=== PATIENT | male | born 1975 | race Caucasian/White ===

== ENCOUNTER 2016-05-11 06:44 | Day surgery (SDC) | payer BC, MEDICAID ==
[2016-05-11] MEDS ORDERED: Sodium Chloride 0.9% 10 ML Syringe FLUSH PRN (06:45)
[2016-05-11] MEDS ORDERED: Lactated Ringers 1,000 ML IV SCH (06:45)
[2016-05-11] MEDS ORDERED: Propofol 200 MG/20 ML SDV IV ONE (08:15)
[2016-05-11] MEDS ORDERED: Midazolam 1 MG/ML 2 ML SDV IV ONE (08:15)
[2016-05-11] MEDS ORDERED: Lidocaine 2% 100 MG/5 ML Syringe IVPUSH ONE (08:15)
--- NOTE | 2016-05-11 08:42 | PCM.OPNOTE ---
- General Post-Op/Procedure Note Date of Surgery/Procedure: 05/11/16 Operative Procedure(s): egd with bx Findings: esophagitis Pre Op Diagnosis: gerd Post-Op Diagnosis: Same Anesthesia Technique: MAC Primary Surgeon: Joseph Estrella Anesthesia Provider: Hiral Mario Pathology: distal esophagus Complications: None Condition: Good Free Text/Narrative:: see dictation
--- NOTE | 2016-05-11 09:28 | OR ---
DATE OF OPERATION: 05/11/2016 SURGEON: Joseph Estrella MD PROCEDURE PERFORMED: Esophagogastroduodenoscopy with cold forceps biopsy. PREOPERATIVE DIAGNOSIS: History of gastroesophageal reflux disease. POSTOPERATIVE DIAGNOSIS: Esophagitis. INDICATIONS FOR PROCEDURE: This is a 40-year-old white male, referred with a history of symptomatic gastroesophageal reflux disease. He has never had a scope. There is also question of him having an esophageal ulcer in the past. He was offered and accepted an EGD. DESCRIPTION OF OPERATION: After an excellent IV sedation was administered, the bite-block was inserted. Flexible endoscope was passed without difficulty down the patient's esophagus into the stomach. The stomach was insufflated. The scope was passed through the pylorus to the second portion of the duodenum and slowly withdrawn. The following findings were noted. Duodenum was unremarkable. Stomach was unremarkable. Distal esophagus measured at 40 cm, and there was some evidence of irritation just proximal to that. Biopsies were taken and the remainder of the esophageal exam was unremarkable. The stomach was deflated. The scope was removed. The patient tolerated the procedure well and was taken to the recovery room in good condition. /[id number] /MODL
[2016-05-11 09:45] VITALS: BP 115/68
== END 2016-05-11 09:39 | disposition home or self-care (01) ==
LOC: FB.SDS 06:44
PROVIDERS: ATTEND Surgery
DX: K21.0 Gastro-esophageal reflux disease with esophagitis (principal); G43.909 Migraine, unspecified, not intractable, without status migrainosus; Z87.891 Personal history of nicotine dependence; Z79.899 Other long term (current) drug therapy
CPT/HCPCS: 43239; 88305; J2250; J2704; J7120

== ENCOUNTER 2016-07-22 10:40 | Emergency (ER) | payer BC, MEDICAID ==
[2016-07-22] MEDS ORDERED: HYDROmorphone 2 MG/ML SDV IV ONE (10:52)
[2016-07-22] MEDS ORDERED: Ondansetron 4 MG/2 ML SDV IVPUSH ONE (10:53)
[2016-07-22] MEDS ORDERED: Sodium Chloride 0.9% 1,000 ML IV ONE (10:53)
[2016-07-22] MEDS ORDERED: HYDROmorphone 2 MG/ML SDV IVPUSH ONE (12:41)
[2016-07-22] MEDS ORDERED: Ketorolac 30 MG/ML SDV IVPUSH PRN (12:42)
[2016-07-22] MEDS ORDERED: Tamsulosin 0.4 MG Cap.ER PO ONE (12:45)
--- NOTE | 2016-07-22 13:35 | CT ---
INDICATION: Left flank - left lower quadrant pain, groin and testicle pain, question renal calculus - obstructive uropathy. It started last night, intermittent through the night with pain worsening. No known hematuria. CT ABDOMEN AND PELVIS WITHOUT CONTRAST: Spiral 1.25-mm axial sections were obtained through the abdomen and pelvis with sagittal and coronal reconstructions, utilizing renal calculus protocol, 07/22/2016. No comparison studies were available. Total Exam DLP = 1564.86 mGy-cm. Multiple tiny calculi are noted in the right kidney, scattered about the kidney. Small and tiny calculi are noted on the left, the larger calculi are seen on the left in the upper pole. Also on the left, there is obstructive uropathy with pyelocaliectasis and ureterectasis down to the ureterovesical junction where a 3.1 x 4.5-mm calculus appears to be embedded in the ureterovesical junction. No calculi are seen in the urinary bladder. Arising exophytically off the lower pole of the right kidney, there is a 2-cm mass, which has a density similar to the renal cortex and is therefore suspicious for other than benign disease. Contrast examination - IV contrast examination of the kidneys is therefore recommended. Ultrasound could also be utilized and may be helpful. There is evidence of appendectomy with clips at the cecum. No obstructive findings are seen in the bowel. No free air is noted in the intraperitoneal cavity. Prostate was not enlarged. Upper abdominal organs were otherwise unremarkable. No definite retroperitoneal mass could be identified. There are some retroperitoneal lymph nodes which are nonspecific. Renal fascial thickening is noted at the left kidney, compatible with obstructive uropathy. The lower lung elise and pleural spaces visualized were unremarkable. IMPRESSION: 1. Obstructive uropathy on the left due to a 3.1 x 4.5-mm calculus which appears to be embedded in the left ureterovesical junction. 2. Renal calcinosis. 3. Possible solid mass at the lower pole of the right kidney, approximately 2 cm in diameter. Ultrasound or preferably CT with IV contrast recommended for further evaluation, as malignancy cannot be excluded with this appearance. 4. Mild dextroconvex scoliosis of the lower lumbar spine is noted. Degenerative disk disease is noted at L4-5 with minimal retrolisthesis at L4-5. CT PELVIS: Examination of the pelvis was obtained by CT, as noted above. A calculus is noted embedded in the left ureterovesical junction compatible with obstructive uropathy to the left kidney. Report was called in part to Dr. Avalos at 1251 hours, 07/22/2016. [facility]
[2016-07-22] MEDS ORDERED: Iopamidol 755 Mg/ML 100 ML Bottle IV ONE (13:41)
[2016-07-22] MEDS ORDERED: Metoclopramide 10 MG/2 ML SDV IVPUSH ONE (14:12)
[2016-07-22 17:10] VITALS: BP 134/88
--- NOTE | 2016-07-23 09:30 | CT ---
INDICATION: Isodense mass right kidney, question malignancy. CT ABDOMEN AND PELVIS WITH CONTRAST: Spiral 2.5-mm axial sections were obtained with 93 mL Isovue-370 at 3 mL per second immediately and after a 5- minute delay, revealing a still hypodense mass, but significantly increased density mass measuring approximately 2 cm at the posterior lower pole cortex of the right kidney, mostly exophytic. It measured approximately 32.5 Hounsfield units without contrast, and immediately 63.84 Hounsfield units with contrast. After a 5 minute delay, there was a 10 Hounsfield unit decrease to 53.5 Hounsfield units within the mass. The possibility of malignancy cannot be excluded with this appearance. Areas of scarring are noted in the cortices of both kidneys, which may be on the basis of bouts of pyelonephritis. The adrenal glands, liver, and gallbladder were unremarkable. The spleen appears to be mildly enlarged, measuring 15.5 cm. The pancreas and adrenals were unremarkable. No definite evidence of pyelonephritis was seen. Retroperitoneal lymphadenopathy is minimal and nonspecific. The appendix is not visualized, compatible with history of its removal. The prostate was not enlarged. A calculus is embedded in the ureteropelvic junction on the left, compatible with obstructive uropathy suggested on the earlier noncontrast study. Pyelocaliectasis and ureterectasis are noted on the left. No retroperitoneal masses were identified. What appears to be a postsurgical appendiceal stump is noted. IMPRESSION: 1. 2-cm suspicious mass lower pole left kidney. Additional workup recommended , possibly initial ultrasound or MRI. 2. Renal cortical scarring and renal calculi, as noted previously. 3. Post appendectomy stump. 4. Obstructive uropathy due to a calculus at the left ureterovesical junction, as mentioned previously. CT PELVIS: Examination of the pelvis was obtained by CT, as noted above, and revealed a calculus at the ureteropelvic junction on the left, compatible with obstructive uropathy, with ureterectasis noted. No evidence of bowel obstruction was seen. Total Exam DLP = 3132.79 mGy-cm. Report was given by phone to Dr. Avalos this p.m., 07/22/2016. FABIANO
--- NOTE | 2016-07-23 16:18 | ER ---
DATE SEEN: 07/22/2016 TIME SEEN: 1045 hours. CHIEF COMPLAINT: Left flank pain, left lower abdominal discomfort and testicular pain. 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 No previous history of kidney stones. He felt he was dehydrated, even though he drank at least 2-3 liters of "pop" yesterday. He experienced nausea at 0900 hours this morning without vomiting. No diarrhea, constipation, blood in the stool, black or tarry stool. No frequency, urgency, dysuria, or hematuria. 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 REVIEW OF SYSTEMS: HEENT: Denies headache presently, although he has headaches. No compromised vision. NECK: No neck stiffness. LUNGS: Without recent cough for shortness of breath. He is not a smoker. CARDIORESPIRATORY: Denies chest pain, or shortness of breath. ABDOMEN: As noted above. No hematochezia. No history of polyps. No colonoscopy. : Negative. No difficulty passing urine, frequency, urgency, or dysuria. MUSCULOSKELETAL: Denies arthralgias, but he has had previous back surgery and has low back discomfort. FAMILY HISTORY: Father has chronic kidney disease either Stage 3 or 4. He has been at the verge of dialysis on several occasions. His father's uncle had kidney failure in his 70s or 80s and also his great grandfather has the same. Kidney disease runs in the family. SOCIAL HISTORY: and nonsmoker. Drinks alcohol rarely and does not use snuff. PHYSICAL EXAMINATION: VITAL SIGNS: Blood pressure 129/85, heart rate regular at 69, respirations 18, oxygen saturation 97% on room air, temperature 36.8 degrees centigrade. GENERAL: The patient is in marked discomfort. HEENT: PERRLA intact. Pharynx without abnormality. NECK: Without stiffness, tenderness, or discomfort. No cervical adenopathy. No thyromegaly. LUNGS: Clear to auscultation without rales, rhonchi, or wheezes. HEART: S1, S2. No irregular rate and rhythm. No tachycardia. ABDOMEN: Soft. Mild left inguinal discomfort. Groin discomfort. Marked left CVA percussion tenderness. Abdomen has no guarding, no rebound. Testicles are nontender and normal size. EXTREMITIES: Without abnormality. No edema. Joints without pain or discomfort. Decreased range of motion. Muscle strength is good in upper and lower extremities. Normal deep tendon reflexes in upper and lower extremities. NEUROLOGIC: Cranial nerves 2 through 12 intact. Alert and oriented x3. Good muscle strength. The patient is mesomorphic. PSYCH: Very pleasant and cooperative. DIAGNOSTIC STUDIES: CAT scan reveals a 3.1 x 4.5 calculus at the left ureterovesical junction, also has a 2 cm mass in the right renal cortex suspicious for malignancy. Because of this, intravenous contrast Ct performed and confirmed a solid mass of highly probabl;e of neoplastic etiology. This will require further evaluation and/or biopsy. MRI with contrast planned for Tuesday at 0930 hours 07/27/2016. The patient has dextroscoliosis over spine with degenerative disk disease and retrolisthesis for L4-5. Laboratory: Urinalysis; moderate mucus, few squamous cells, and 0-5 rbc's, 5-10 wbc's. DIAGNOSES: 1. Left ureterovesical stone. 2. Mass in right kidney, rule out neoplasm. 3. Hypertension. 4. Migraine history. PLAN: Flomax 0.4 mg in the ED. A total of 3 mg of Dilaudid given IV because of recurrent persistent pain. Zofran 4 mg IV did not resolve the nausea. Reglan 10 mg IV was used and he felt better. Flomax 0.4 mg orally. The patient dismissed with Percocet 2-4 hours p.r.n. severe pain. Flomax. Follow up with MRI on Tuesday. Follow up with doctor after this is completed. I will speak to him because I will be working in the emergency room that day. /[id number] STORM/JODEEL RENED
== END 2016-07-22 17:26 | disposition home or self-care (01) ==
LOC: FB.ED 10:40
DX: N20.2 Calculus of kidney with calculus of ureter (principal); I10 Essential (primary) hypertension; G43.909 Migraine, unspecified, not intractable, without status migrainosus; K21.9 Gastro-esophageal reflux disease without esophagitis
CPT/HCPCS: 74178; 81001; 96361; 96374; 96375; 96376; 99285; A9270; J1170; J1885; J2405; J2765; J7040; Q9967; 74176; 74177

== ENCOUNTER 2017-07-29 19:44 | Emergency (ER) | payer BC, MEDICAID ==
[2017-07-29] MEDS ORDERED: Sodium Chloride 0.9% 10 ML Syringe FLUSH PRN (20:17)
[2017-07-29] MEDS ORDERED: HYDROmorphone 2 MG/ML SDV IVPUSH ONE (20:18)
--- NOTE | 2017-07-29 20:20 | EDM.PDOC ---
ED HPI GENERAL MEDICAL PROBLEM - General Chief Complaint: Abdominal Pain Stated Complaint: ABD PAIN Time Seen by Provider: 07/29/17 20:10 Source of Information: Reports: Patient, Old Records History Limitations: Reports: No Limitations - History of Present Illness INITIAL COMMENTS - FREE TEXT/NARRATIVE: Colten comes into [facility] ED with acute onset of R CVA back pain. Pain is colicky in nature, nonradiating, and associated with some nausea. There is no voiding sxs, fever, chills or sweats. Of interest is a PMH of R ureterlithiasis, nephrolithiasis, and renal cell CA last year. He had a partial R nephrectomy. He has taken no meds. - Related Data Allergies Allergy/AdvReac Type Severity Reaction Status Date / Time No Known Allergies Allergy Verified 07/29/17 20:40 Home Meds: Home Meds Propranolol [Inderal LA] 120 mg PO DAILY 05/10/16 [History] Rizatriptan [Maxalt [employer]IN[employer]] 10 mg PO Q2H PRN MDD 20 MG 05/10/16 [History] Lisinopril/Hydrochlorothiazide [Lisinopril-Hctz 10-12.5 mg Tab] 1 tab PO BEDTIME 07/22/16 [History] Ranitidine [Zantac] 1 tab PO BEDTIME 07/22/16 [History] Past Medical History Cardiovascular History: Reports: Hypertension Respiratory History: Reports: Other (See Below) Other Respiratory History: BROCNCHITIS Gastrointestinal History: Reports: GERD Genitourinary History: Reports: Renal Calculus Musculoskeletal History: Reports: Back Pain, Chronic, Fracture Oncologic (Cancer) History: Reports: Renal - Infectious Disease History Infectious Disease History: Reports: Chicken Pox, Shingles - Past Surgical History HEENT Surgical History: Reports: Tonsillectomy GI Surgical History: Reports: Appendectomy Musculoskeletal Surgical History: Reports: Shoulder Surgery, Other (See Below) Social & Family History - Family History Family Medical History: Noncontributory - Caffeine Use Caffeine Use: Reports: Soda ED ROS GENERAL - Review of Systems Review Of Systems: See Below Constitutional: Reports: Malaise, Decreased Appetite HEENT: Reports: No Symptoms Respiratory: Reports: No Symptoms Cardiovascular: Reports: No Symptoms Endocrine: Reports: No Symptoms GI/Abdominal: Reports: Nausea, Vomiting : Reports: Flank Pain (Right) Musculoskeletal: Reports: No Symptoms Skin: Reports: No Symptoms Neurological: Reports: No Symptoms Psychiatric: Reports: No Symptoms Hematologic/Lymphatic: Reports: No Symptoms Immunologic: Reports: No Symptoms ED EXAM, RENAL/ - Physical Exam Exam: See Below Exam Limited By: No Limitations General Appearance: Alert, WD/WN, Anxious, Moderate Distress Head: Normocephalic Neck: Normal Inspection, Supple Respiratory/Chest: Lungs Clear, Normal Breath Sounds, Chest Non-Tender Cardiovascular: Normal Peripheral Pulses, Regular Rate, Rhythm, No Murmur GI/Abdominal: Normal Bowel Sounds, Soft, Non-Tender, No Organomegaly, No Distention, No Mass (Male) Exam: No Hernia, Normal Inspection Rectal (Males) Exam: Deferred Back Exam: Normal Inspection, CVA Tenderness (R) Extremities: Normal Inspection, Normal Range of Motion Neurological: Alert, Oriented, CN II-XII Intact, Normal Cognition, Normal Gait, No Motor/Sensory Deficits Psychiatric: Normal Affect, Normal Mood Skin Exam: Warm, Dry, Intact, Normal Color Lymphatic: No Adenopathy Course - Vital Signs Text/Narrative:: Following assessment at the [facility] ED, I inserted an IV in the LUE, and administered NS 1L, Dilaudid 2 mg IV, and Zofran 8 mg IV. Pain is currently rated as a 4/10, and nausea subsided with the Zofran. CT ABD-Pelvis noted some gastric distention with A/F level, some liquid stool in the large bowel, but no AF levels of the small or large bowel; appendix surgically absent; GB normal appearance. A gastroenteritis is suspected at this time. Last Recorded V/S: Last Vital Signs Temp 37.1 C 07/29/17 20:00 Pulse 86 07/29/17 23:23 Resp 16 07/29/17 23:23 BP 143/95 H 07/29/17 23:23 Pulse Ox 97 07/29/17 23:23 - Orders/Labs/Meds Orders: Active Orders 24 hr Category Date Time Status Abdomen Pelvis wo Cont [CT] Stat Exams 07/29/17 22:22 Taken UA W/MICROSCOPIC [URIN] Stat Lab 07/29/17 21:50 Ordered Sodium Chloride 0.9% [Normal Saline] 1,000 ml Med 07/29/17 20:45 Active IV ASDIRECTED Sodium Chloride 0.9% [Normal Saline] 1,000 ml Med 07/29/17 21:50 Active IV ASDIRECTED Sodium Chloride 0.9% [Saline Flush] Med 07/29/17 20:17 Active 10 ml FLUSH ASDIRECTED PRN Peripheral IV Insertion Adult [OM.PC] Routine Oth 07/29/17 20:17 Ordered Medication Orders Sodium Chloride (Normal Saline) 1,000 mls @ 999 mls/hr IV ASDIRECTED NIRU Last Admin: 07/29/17 20:48 Dose: 999 mls/hr Sodium Chloride (Normal Saline) 1,000 mls @ 999 mls/hr IV ASDIRECTED NIRU Sodium Chloride (Saline Flush) 10 ml FLUSH ASDIRECTED PRN PRN Reason: Keep Vein Open Labs: Laboratory Tests 07/29/17 07/29/17 07/29/17 Range/Units 20:30 20:30 21:50 WBC 13.3 H (4.5-12.0) X10-3/uL RBC 5.56 (4.30-5.75) x10(6)uL Hgb 15.8 H (11.5-15.5) g/dL Hct 45.8 (30.0-51.3) % MCV 82.4 (80-96) fL MCH 28.4 (27.7-33.6) pg MCHC 34.5 (32.2-35.4) g/dL RDW 14.4 (11.5-15.5) % Plt Count 199 (125-369) X10(3)uL MPV 9.1 (7.4-10.4) fL Neut % (Auto) 77.7 (46-82) % Lymph % (Auto) 11.0 L (13-37) % Culberson % (Auto) 6.1 (4-12) % Eos % (Auto) 1 (1.0-5.0) % Baso % (Auto) 4 H (0-2) % Neut # (Auto) 10.3 H (1.6-8.3) # Lymph # (Auto) 1.5 (0.6-5.0) # Culberson # (Auto) 0.8 (0.0-1.3) # Eos # (Auto) 0.1 (0.0-0.8) # Baso # (Auto) 0.6 H (0.0-0.2) # Sodium 142 (135-145) mmol/L Potassium 3.4 L (3.5-5.3) mmol/L Chloride 106 (100-110) mmol/L Carbon Dioxide 24 (21-32) mmol/L BUN 12 (7-18) mg/dL Creatinine 1.6 H (0.70-1.30) mg/dL Est Cr Clr Drug Dosing TNP Estimated GFR (MDRD) 47 L (>60) BUN/Creatinine Ratio 7.5 L (9-20) Glucose 99 (80-116) mg/dL Calcium 9.2 (8.6-10.2) mg/dL Urine Color Yellow (YELLOW) Urine Appearance Clear (CLEAR) Urine pH 5.0 (5.0-6.5) Ur Specific Adams 1.020 (1.010-1.025) Urine Protein Negative (NEGATIVE) mg/dL Urine Glucose (UA) Normal (NEGATIVE) mg/dL Urine Ketones Negative (NEGATIVE) mg/dL Urine Occult Blood Negative (NEGATIVE) Urine Nitrite Negative (NEGATIVE) Urine Bilirubin Negative (NEGATIVE) Urine Urobilinogen Normal (NEGATIVE) mg/dL Ur Leukocyte Esterase Negative (NEGATIVE) Urine RBC 0-5 (0) Urine WBC 0-5 (0) Ur Squamous Epith Cells Occasional (NS,R,O) Urine Bacteria Rare H (NS) Meds: Medications Generic Name Dose Route Start Last Admin Trade Name Freq PRN Reason Stop Dose Admin Sodium Chloride 1,000 mls @ 999 mls/hr 07/29/17 20:45 07/29/17 20:48 Normal Saline IV 999 mls/hr ASDIRECTED NIRU Administration Sodium Chloride 1,000 mls @ 999 mls/hr 07/29/17 21:50 Normal Saline IV ASDIRECTED NIRU Sodium Chloride 10 ml 07/29/17 20:17 Saline Flush FLUSH ASDIRECTED PRN Keep Vein Open Discontinued Medications Generic Name Dose Route Start Last Admin Trade Name Freq PRN Reason Stop Dose Admin Hydromorphone HCl 2 mg 07/29/17 20:18 07/29/17 20:29 Dilaudid IVPUSH 07/29/17 20:19 2 mg ONETIME ONE Administration Ondansetron HCl 8 mg 07/29/17 20:38 07/29/17 20:41 Zofran IVPUSH 07/29/17 20:39 8 mg ONETIME ONE Administration Departure - Departure Time of Disposition: 23:42 Disposition: Home, Self-Care 01 Condition: Fair Clinical Impression: Gastroenteritis - Discharge Information Referrals: Srinivas Garzon MD [Primary Care Provider] - Forms: ED Department Discharge - Problem List & Annotations (1) Gastroenteritis SNOMED Code(s): 52713590 Code(s): K52.9 - NONINFECTIVE GASTROENTERITIS AND COLITIS, UNSPECIFIED Status: Acute Current Visit: Yes Annotation/Comment:: I suggested Benedryl for any itching, Tylenol or Ibuprofen for pain, and fluids as tolerated. He will monitor temps, and follow up in ED if sxs relapse or escalate. - Problem List Review Problem List Initiated/Reviewed/Updated: Yes - My Orders Last 24 Hours: My Active Orders 07/29/17 20:17 Sodium Chloride 0.9% [Saline Flush] 10 ml FLUSH ASDIRECTED PRN Peripheral IV Insertion Adult [OM.PC] Routine 07/29/17 20:45 Sodium Chloride 0.9% [Normal Saline] 1,000 ml IV ASDIRECTED 07/29/17 21:50 UA W/MICROSCOPIC [URIN] Stat Sodium Chloride 0.9% [Normal Saline] 1,000 ml IV ASDIRECTED 07/29/17 22:22 Abdomen Pelvis wo Cont [CT] Stat - Assessment/Plan Last 24 Hours: My Active Orders 07/29/17 20:17 Sodium Chloride 0.9% [Saline Flush] 10 ml FLUSH ASDIRECTED PRN Peripheral IV Insertion Adult [OM.PC] Routine 07/29/17 20:45 Sodium Chloride 0.9% [Normal Saline] 1,000 ml IV ASDIRECTED 07/29/17 21:50 UA W/MICROSCOPIC [URIN] Stat Sodium Chloride 0.9% [Normal Saline] 1,000 ml IV ASDIRECTED 07/29/17 22:22 Abdomen Pelvis wo Cont [CT] Stat Plan: Follow up in ED if sxs persist or escalate.
[2017-07-29] MEDS ORDERED: Ondansetron 4 MG/2 ML SDV IVPUSH ONE (20:38)
[2017-07-29] MEDS ORDERED: Sodium Chloride 0.9% 1,000 ML IV SCH ×2 (20:45→21:50)
[2017-07-29 23:27] VITALS: BP 143/95
== END 2017-07-29 23:53 | disposition home or self-care (01) ==
LOC: FB.ED 19:44
DX: K52.9 Noninfective gastroenteritis and colitis, unspecified (principal); K21.9 Gastro-esophageal reflux disease without esophagitis; Z79.899 Other long term (current) drug therapy
CPT/HCPCS: 36415; 51701; 74176; 80048; 81001; 85025; 96361; 96374; 96375; 99284; J1170; J2405; J7030; J7050

== ENCOUNTER 2017-09-02 19:20 | Emergency (ER) | payer BC, MEDICAID ==
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
[2017-09-02] MEDS ORDERED: HYDROmorphone 2 MG/ML SDV IM ONE (20:15)
[2017-09-02] MEDS ORDERED: Acetaminophen/oxyCODONE 325-5 MG Tab PO ONE (20:58)
[2017-09-02 21:05] VITALS: BP 150/103
--- NOTE | 2017-09-05 12:48 | CR ---
INDICATION: Trauma. RIGHT HUMERUS: Five views of the right humerus were obtained and reveal the ankle and shoulder joints to appear intact. The humerus appeared intact. There is evidence of previous rotator cuff surgery. Multiple anchors are noted in place at the glenoid. IMPRESSION: No acute fracture or dislocation. MTDD
== END 2017-09-02 21:20 | disposition home or self-care (01) ==
LOC: FB.ED 19:20
DX: S40.021A Contusion of right upper arm, initial encounter (principal); I10 Essential (primary) hypertension; K21.9 Gastro-esophageal reflux disease without esophagitis; Z87.442 Personal history of urinary calculi; Z90.49 Acquired absence of other specified parts of digestive tract; Z79.899 Other long term (current) drug therapy; V03.90XA Pedestrian on foot injured in collision with car, pick-up truck or van, unspecified whether traffic or nontraffic accident, initial encounter
CPT/HCPCS: 70450; 71250; 72125; 73060; 74176; 80053; 85025; 85610; 96372; 99284; A9270; J1170

== ENCOUNTER 2018-04-05 07:41 | Emergency (ER) | payer BC, MEDICAID ==
--- NOTE | 2018-04-05 08:01 | EDM.PDOC ---
ED HPI GENERAL MEDICAL PROBLEM - General Stated Complaint: KIDNEY STONE Time Seen by Provider: 04/05/18 07:50 Source of Information: Reports: Patient, Family History Limitations: Reports: No Limitations - History of Present Illness INITIAL COMMENTS - FREE TEXT/NARRATIVE: 42 y.o.w.m with a H/O HTN and kidney stones, came with his SO to the ed due to sudden onset of left sided flank pain. Pt did find a position which made him comfortable. No trauma. Last Kidney stone was calcium. Pt felt nauseated as well. No vomiting or diarrhea. No SOB or any other acute medical issues. BP 187/ 100 Pulse 88 RR 18 Pulse ox 100% on RA. Temp 36.8 Onset Date: 04/05/18 Onset Time: 05:00 Duration: Hour(s):, Intermittent, Waxing/Waning Location: Reports: Back (left flank) Quality: Reports: Burning, Dull, Throbbing Severity: Moderate Improves with: Reports: Medication Worsens with: Reports: Other Context: Reports: Other (H/O kidney stones) Associated Symptoms: Reports: No Other Symptoms Left Lower Abdomen Pain Score (Numeric/FACES): 10 - Related Data Allergies Allergy/AdvReac Type Severity Reaction Status Date / Time No Known Allergies Allergy Verified 04/05/18 09:55 Home Meds: Home Meds Rizatriptan [Maxalt GAS COMBUSTION ENGINEER] 10 mg PO Q2H PRN MDD 20 MG 05/10/16 [History] Ranitidine [Zantac] 1 tab PO BEDTIME 07/22/16 [History] Acetaminophen/oxyCODONE [Percocet 325-5 MG] 1 each PO Q6HR PRN #20 tab 04/05/18 [Rx] Escitalopram Oxalate 20 mg PO DAILY 04/05/18 [History] Ibuprofen [Motrin] 600 mg PO Q6H PRN #30 tab 04/05/18 [Rx] Ondansetron [Zofran ODT] 4 mg PO Q8H PRN #12 tab.dis 04/05/18 [Rx] Tamsulosin [Tamsulosin 24 Hr] 0.4 mg PO DAILY #4 cap.er 04/05/18 [Rx] Topiramate 100 mg PO DAILY 04/05/18 [History] amLODIPine Besylate [Amlodipine Besylate] 10 mg PO DAILY 04/05/18 [History] Past Medical History Cardiovascular History: Reports: Hypertension Respiratory History: Reports: Other (See Below) Other Respiratory History: BROCNCHITIS Gastrointestinal History: Reports: GERD Genitourinary History: Reports: Renal Calculus, Other (See Below) (CKD) Musculoskeletal History: Reports: Back Pain, Chronic, Fracture Oncologic (Cancer) History: Reports: Renal - Infectious Disease History Infectious Disease History: Reports: Chicken Pox, Shingles - Past Surgical History HEENT Surgical History: Reports: Tonsillectomy GI Surgical History: Reports: Appendectomy, Hernia, Abdominal (incisional, approx 4 months ago) Female Surgical History: Reports: Nephrectomy (partial) Musculoskeletal Surgical History: Reports: Shoulder Surgery, Other (See Below) Social & Family History - Family History Family Medical History: Noncontributory - Caffeine Use Caffeine Use: Reports: Soda Other Caffeine Use: mountain dew. ED ROS GENERAL - Review of Systems Review Of Systems: See Below Constitutional: Reports: No Symptoms HEENT: Reports: No Symptoms Respiratory: Reports: No Symptoms Cardiovascular: Reports: No Symptoms Endocrine: Reports: No Symptoms GI/Abdominal: Reports: No Symptoms : Reports: Hematuria, Pain (left flank pain) Musculoskeletal: Reports: No Symptoms Skin: Reports: No Symptoms Neurological: Reports: No Symptoms Psychiatric: Reports: No Symptoms Hematologic/Lymphatic: Reports: No Symptoms Immunologic: Reports: No Symptoms ED EXAM, RENAL/ - Physical Exam Exam: See Below Exam Limited By: No Limitations General Appearance: Alert, WD/WN, Mild Distress, Moderate Distress Eye Exam: Bilateral Eye: Normal Inspection Ears: Normal External Exam Nose: Normal Inspection Throat/Mouth: Normal Inspection Head: Atraumatic, Normocephalic Neck: Normal Inspection Respiratory/Chest: No Respiratory Distress, Lungs Clear, Normal Breath Sounds Cardiovascular: Normal Peripheral Pulses, Regular Rate, Rhythm, No Edema, No Gallop GI/Abdominal: Normal Bowel Sounds, Soft, Non-Tender, No Organomegaly, No Abnormal Bruit, No Mass, Pelvis Stable (Male) Exam: Deferred Rectal (Males) Exam: Deferred Back Exam: Normal Inspection, CVA Tenderness (L) Extremities: Normal Inspection, Normal Range of Motion, Non-Tender, No Pedal Edema Neurological: Alert, Oriented, CN II-XII Intact, Normal Cognition, Normal Gait, No Motor/Sensory Deficits Psychiatric: Normal Affect, Normal Mood Skin Exam: Warm, Dry, Intact, Normal Color, No Rash Lymphatic: No Adenopathy Course - Vital Signs Text/Narrative:: 42 y.o.w.m with a H/O HTN and kidney stones, came with his SO to the ed due to sudden onset of left sided flank pain. Pt did find a position which made him comfortable. No trauma. Last Kidney stone was calcium. Pt felt nauseated as well. No vomiting or diarrhea. No SOB or any other acute medical issues. BP 187/ 100 Pulse 88 RR 18 Pulse ox 100% on RA. Temp 36.8 PE: WNWD W M with left flank pain radiating in his left groin. Labs: UA pos for annie hematuria, CBC, BMP neg except CR was 1.4 GFR was 55 Imaging: Left jawbone puller urolithiasis witha 3.5 mm stone in his left UVJ, mild hydro. Impression: 3.5 mm urolithiasis left UVJ with mild hydro Tx: Toradol, Flomax, Zofran, Dilaudid Reexam: Pt was 100% pain free and stable on D/C Plan: D/C with instruction Last Recorded V/S: Last Vital Signs Temp 36.8 C 04/05/18 07:50 Pulse 88 04/05/18 09:45 Resp 18 04/05/18 09:45 BP 156/92 H 04/05/18 09:45 Pulse Ox 100 04/05/18 09:45 - Orders/Labs/Meds Orders: Active Orders 24 hr Category Date Time Status Abdomen Pelvis wo Cont [CT] Stat Exams 04/05/18 08:00 Taken Labs: Laboratory Tests 04/05/18 04/05/18 04/05/18 Range/Units 07:50 09:25 09:25 WBC 8.4 (4.5-12.0) X10-3/uL RBC 5.41 (4.30-5.75) x10(6)uL Hgb 15.4 (11.5-15.5) g/dL Hct 44.8 (30.0-51.3) % MCV 82.9 (80-96) fL MCH 28.4 (27.7-33.6) pg MCHC 34.3 (32.2-35.4) g/dL RDW 13.5 (11.5-15.5) % Plt Count 206 (125-369) X10(3)uL MPV 8.2 (7.4-10.4) fL Neut % (Auto) 79.1 (46-82) % Lymph % (Auto) 13.1 (13-37) % [place] % (Auto) 5.9 (4-12) % Eos % (Auto) 1 (1.0-5.0) % Baso % (Auto) 1 (0-2) % Neut # (Auto) 6.7 (1.6-8.3) # Lymph # (Auto) 1.1 (0.6-5.0) # [place] # (Auto) 0.5 (0.0-1.3) # Eos # (Auto) 0.1 (0.0-0.8) # Baso # (Auto) 0.0 (0.0-0.2) # Sodium 140 (135-145) mmol/L Potassium 3.9 (3.5-5.3) mmol/L Chloride 106 (100-110) mmol/L Carbon Dioxide 24 (21-32) mmol/L BUN 14 (7-18) mg/dL Creatinine 1.4 H (0.70-1.30) mg/dL Est Cr Clr Drug Dosing 73.90 mL/min Estimated GFR (MDRD) 55 L (>60) BUN/Creatinine Ratio 10.0 (9-20) Glucose 111 (80-116) mg/dL Calcium 9.2 (8.6-10.2) mg/dL Urine Color Yellow (YELLOW) Urine Appearance Slightly cloudy (CLEAR) Urine pH 5.0 (5.0-6.5) Ur Specific [place] 1.015 (1.010-1.025) Urine Protein Negative (NEGATIVE) mg/dL Urine Glucose (UA) Normal (NEGATIVE) mg/dL Urine Ketones Negative (NEGATIVE) mg/dL Urine Occult Blood Large H (NEGATIVE) Urine Nitrite Negative (NEGATIVE) Urine Bilirubin Negative (NEGATIVE) Urine Urobilinogen Normal (NEGATIVE) mg/dL Ur Leukocyte Esterase Negative (NEGATIVE) Urine RBC >100 H (0) Urine WBC 0-5 (0) Ur Squamous Epith Cells Occasional (NS,R,O) Urine Bacteria Rare H (NS) Meds: Medications Discontinued Medications Generic Name Dose Route Start Last Admin Trade Name Freq PRN Reason Stop Dose Admin Hydromorphone HCl 1 mg 04/05/18 08:38 04/05/18 09:12 Dilaudid IV 04/05/18 08:39 1 mg ONETIME STA Administration Ketorolac Tromethamine 60 mg 04/05/18 07:58 04/05/18 08:07 Toradol IM 04/05/18 07:59 60 mg ONETIME ONE Administration Ondansetron HCl 8 mg 04/05/18 08:00 04/05/18 08:07 Zofran Odt PO 04/05/18 08:01 8 mg ONETIME ONE Administration Tamsulosin HCl 0.4 mg 04/05/18 07:58 04/05/18 08:07 Flomax PO 04/05/18 07:59 0.4 mg ONETIME ONE Administration Departure - Departure Time of Disposition: 09:50 Disposition: Home, Self-Care 01 Condition: Good Clinical Impression: Calcium urolithiasis, Hematuria - Discharge Information Prescriptions: Acetaminophen/oxyCODONE [Percocet 325-5 MG] 1 each PO Q6HR PRN #20 tab PRN Reason: severe pain only Ibuprofen [Motrin] 600 mg PO Q6H PRN #30 tab PRN Reason: moderate pain Ondansetron [Zofran ODT] 4 mg PO Q8H PRN #12 tab.dis PRN Reason: for nausea Tamsulosin [Tamsulosin 24 Hr] 0.4 mg PO DAILY #4 cap.er Instructions: Kidney Stones, [id number] Referrals: Srinivas Garzon MD [Primary Care Provider] - Forms: ED Department Discharge, ED Return to Work/School Form Additional Instructions: Please increase water intake, please take Percocet for severe pain. Motrin for moderate pain, Zofran for nausea, Flomax for Ureter spasm. Please f/u with your PMD, come back if your symptoms get worse acutely - My Orders Last 24 Hours: My Active Orders 04/05/18 08:00 Abdomen Pelvis wo Cont [CT] Stat - Assessment/Plan Last 24 Hours: My Active Orders 04/05/18 08:00 Abdomen Pelvis wo Cont [CT] Stat
[2018-04-05] MEDS: Ondansetron 8 MG Tab.DIS PO ONE (08:07)
[2018-04-05] MEDS: Ketorolac 60 MG/2 ML SDV IM ONE (08:07)
[2018-04-05] MEDS: Tamsulosin 0.4 MG Cap.ER PO ONE (08:07)
[2018-04-05] MEDS: HYDROmorphone 2 MG/ML SDV IV STA (09:12)
[2018-04-05 10:00] VITALS: BP 156/92
== END 2018-04-05 10:13 | disposition home or self-care (01) ==
LOC: FB.ED 07:41
DX: N13.2 Hydronephrosis with renal and ureteral calculous obstruction (principal); I10 Essential (primary) hypertension; Z79.899 Other long term (current) drug therapy
CPT/HCPCS: 36415; 74176; 80048; 81001; 85025; 96372; 96374; 99284; A9270-GY; J1170; J1885

== ENCOUNTER 2018-07-08 12:54 | Emergency (ER) | payer BC, MEDICAID ==
[2018-07-08 13:10] VITALS: BP 153/97
--- NOTE | 2018-07-08 13:27 | EDM.PDOC ---
ED HPI GENERAL MEDICAL PROBLEM - General Chief Complaint: Eye Problems Stated Complaint: RT EYE PAIN Time Seen by Provider: 07/08/18 12:54 Source of Information: Reports: Patient History Limitations: Reports: No Limitations - History of Present Illness INITIAL COMMENTS - FREE TEXT/NARRATIVE: 42 y.o.w.m wearing contact lenses. He did not take his contact lenses out for a few days and noticed pain and blurred vision at his right eye this am.No direct trauma. Visual acuity was 20/50 at his righ eye, uncorrected. left eye 20/20. No other acute med issues. BP 153/92 RR 18 Pulse ox 97% on RA Temp 36.7 Pulse 93 Procedure: Please see above. No FB could be identified Impression: minimal corneal abrasion/conjunctivitis right eye. Tx: Pain meds and Eye abx ointment was prescribed, Email sent to pharmacy Reexam: Pt was stable in the ED Plan: D/C with instructions Onset Date: 07/07/18 Onset Time: 09:00 Duration: Hour(s):, Getting Worse, Intermittent Location: Reports: Face (right eye) Quality: Reports: Burning, Dull Severity: Moderate Improves with: Reports: Rest Worsens with: Reports: Movement Context: Reports: Other (did not take out his contact lenses) Associated Symptoms: Reports: No Other Symptoms R eye Pain Score (Numeric/FACES): 8 - Related Data Allergies Allergy/AdvReac Type Severity Reaction Status Date / Time No Known Allergies Allergy Verified 07/08/18 13:04 Home Meds: Home Meds Rizatriptan [Maxalt HEALTHCARE ARCHITECT] 10 mg PO Q2H PRN MDD 20 MG 05/10/16 [History] Ranitidine [Zantac] 150 mg PO BID 07/22/16 [History] Escitalopram Oxalate 20 mg PO BEDTIME 04/05/18 [History] Ibuprofen [Motrin] 600 mg PO Q6H PRN #30 tab 04/05/18 [Rx] Topiramate 100 mg PO BEDTIME 04/05/18 [History] amLODIPine Besylate [Amlodipine Besylate] 10 mg PO BEDTIME 04/05/18 [History] Acetaminophen/HYDROcodone [[place] 325-5 MG] 1 - 2 tab PO Q6H PRN #6 tab 07/08/18 [Rx] Bacitracin/HC/Neomycin/Polymyx [Cortisporin Ophth Oint] 1 applic OP Q6H #1 tube 07/08/18 [Rx] Past Medical History Cardiovascular History: Reports: Hypertension Respiratory History: Reports: Other (See Below) Other Respiratory History: BROCNCHITIS Gastrointestinal History: Reports: GERD Genitourinary History: Reports: Renal Calculus, Other (See Below) (CKD) Musculoskeletal History: Reports: Back Pain, Chronic, Fracture Oncologic (Cancer) History: Reports: Renal - Infectious Disease History Infectious Disease History: Reports: Chicken Pox, Shingles - Past Surgical History HEENT Surgical History: Reports: Tonsillectomy GI Surgical History: Reports: Appendectomy, Hernia, Abdominal (incisional, approx 4 months ago) Female Surgical History: Reports: Nephrectomy (partial) Musculoskeletal Surgical History: Reports: Shoulder Surgery, Other (See Below) Social & Family History - Family History Family Medical History: Noncontributory - Caffeine Use Caffeine Use: Reports: Soda Other Caffeine Use: mountain dew. ED ROS GENERAL - Review of Systems Review Of Systems: See Below Constitutional: Reports: No Symptoms HEENT: Reports: Eye Pain (right eye) Respiratory: Reports: No Symptoms Cardiovascular: Reports: No Symptoms Endocrine: Reports: No Symptoms GI/Abdominal: Reports: No Symptoms : Reports: No Symptoms Musculoskeletal: Reports: No Symptoms Skin: Reports: No Symptoms Neurological: Reports: No Symptoms Psychiatric: Reports: No Symptoms Hematologic/Lymphatic: Reports: No Symptoms Immunologic: Reports: No Symptoms ED EXAM GENERAL W FULL EYE - Physical Exam Exam: See Below Exam Limited By: No Limitations General Appearance: Alert, WD/WN, Mild Distress Eye Exam: Right Eye: Conjunctival Injection Visual Acuity (R) 20/: 50 Visual Acuity (L) 20/: 20 With Correction: No Eyelids: Bilateral: Normal Appearance Conjunctiva & Sclera: Right: Injected Cornea Exam: Right: Corneal Abrasion (possible, no slit lamp available) Extraocular Movements: Bilateral: Intact Pupils: Normal Accommodation Pupillary Size: Bilateral: 4 mm Pupillary Reaction: Bilateral: Brisk Anterior Chamber: Bilateral: Normal Appearance Posterior Chamber: Bilateral: Normal Funduscopic Ears: Normal External Exam Nose: Normal Inspection Throat/Mouth: Normal Inspection Head: Atraumatic, Normocephalic Neck: Normal Inspection, Supple, Non-Tender, Full Range of Motion Respiratory/Chest: No Respiratory Distress, Lungs Clear, Normal Breath Sounds, No Accessory Muscle Use, Chest Non-Tender Cardiovascular: Normal Peripheral Pulses, Regular Rate, Rhythm GI/Abdominal: Normal Bowel Sounds, Soft (Male) Exam: Deferred (Female) Exam: Deferred Rectal (Males) Exam: Deferred Rectal (Female) Exam: Deferred Back Exam: Normal Inspection, Full Range of Motion Extremities: Normal Inspection, Normal Range of Motion, Non-Tender, Normal Capillary Refill Neurological: Alert, Oriented, CN II-XII Intact, Normal Cognition, Normal Gait Psychiatric: Normal Affect, Normal Mood Skin Exam: Warm, Dry, Intact, Normal Color, No Rash Lymphatic: No Adenopathy ED EYE w/ Add Procedure - Eye Procedure Alcaine Drops Administered: Yes (3 drops applied) Progress: Fluoro strip was applied. with the "blue light" a minimal abrasion could be seen qt his right eye, no slit lamp was available, Conjunctivitis right eye. Course - Vital Signs Text/Narrative:: 42 y.o.w.m wearing contact lenses. He did not take his contact lenses out for a few days and noticed pain and blurred vision at his right eye this am.No direct trauma. Visual acuity was 20/50 at his righ eye, uncorrected. left eye 20/20. No other acute med issues. BP 153/92 RR 18 Pulse ox 97% on RA Temp 36.7 Pulse 93 PE: WNWD W M with right eye discomfort Conuctivitis Last Recorded V/S: Last Vital Signs Temp 36.6 C 07/08/18 12:57 Pulse 90 07/08/18 12:57 Resp 18 07/08/18 12:57 BP 153/97 H 07/08/18 12:57 Pulse Ox 97 07/08/18 12:57 Departure - Departure Time of Disposition: 13:24 Disposition: Home, Self-Care 01 Condition: Good Clinical Impression: Conjunctivitis Qualifiers: Acute conjunctivitis type: unspecified Laterality: right - Discharge Information Prescriptions: Acetaminophen/HYDROcodone [[place] 325-5 MG] 1 - 2 tab PO Q6H PRN #6 tab PRN Reason: for severe pain only Bacitracin/HC/Neomycin/Polymyx [Cortisporin Ophth Oint] 1 applic OP Q6H #1 tube Instructions: Bacterial Conjunctivitis, [id number] Referrals: Srinivas Garzon MD [Primary Care Provider] - Forms: ED Department Discharge Additional Instructions: Please apply the ABX ointment in both eyes, please take Vicodin for severe pain only. Please follow up with the EYE clinic if your symptoms did not subside in next 24 hours. Please come back to the ED if your symptoms get worse acutely
== END 2018-07-08 13:56 | disposition home or self-care (01) ==
LOC: FB.ED 12:54
DX: H10.9 Unspecified conjunctivitis (principal); K21.9 Gastro-esophageal reflux disease without esophagitis; I10 Essential (primary) hypertension; Z79.899 Other long term (current) drug therapy
CPT/HCPCS: 99282

== ENCOUNTER 2018-09-24 18:11 | Emergency (ER) | payer BC, MEDICAID ==
[2018-09-24] MEDS ORDERED: Sodium Chloride 0.9% 10 ML Syringe FLUSH PRN (19:01)
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
[2018-09-24] MEDS ORDERED: Sodium Chloride 0.9% 1,000 ML IV ONE (19:04)
[2018-09-24] MEDS ORDERED: Ondansetron 4 MG/2 ML SDV IVPUSH ONE (19:04)
[2018-09-24] MEDS ORDERED: Morphine 4 MG/ML Syringe IVPUSH ONE (19:04)
[2018-09-24] MEDS ORDERED: Iopamidol 755 Mg/ML 100 ML Bottle IV ONE (20:29)
[2018-09-24 21:25] VITALS: BP 145/95; PULSE 81
[2018-09-24] MEDS ORDERED: Acetaminophen/HYDROcodone 325-5 MG Tab PO ONE (21:29)
[2018-09-24] MEDS ORDERED: Iopamidol 755 Mg/ML 75 ML Bottle IV ONE (21:31)
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
== END 2018-09-24 21:55 | disposition home or self-care (01) ==
LOC: FB.ED 18:11
DX: S20.211A Contusion of right front wall of thorax, initial encounter (principal); S20.221A Contusion of right back wall of thorax, initial encounter; I10 Essential (primary) hypertension; K21.9 Gastro-esophageal reflux disease without esophagitis; Z79.899 Other long term (current) drug therapy; V49.49XA Driver injured in collision with other motor vehicles in traffic accident, initial encounter
CPT/HCPCS: 36415; 71045; 71275; 74174; 80053; 81001; 82150; 85025; 96361; 96374; 96375; 99284; A9270; J2270; J2405; J7030; Q9967

== ENCOUNTER 2018-10-23 06:35 | Emergency (ER) | payer BC, MEDICAID ==
[2018-10-23] MEDS ORDERED: Sodium Chloride 0.9% 1,000 ML IV ONE (06:58)
[2018-10-23] MEDS ORDERED: Ondansetron 4 MG/2 ML SDV IVPUSH ONE ×2 (06:58→11:19)
--- NOTE | 2018-10-23 07:32 | EDM.PDOC ---
ED HPI GENERAL MEDICAL PROBLEM - General Chief Complaint: Gastrointestinal Problem Stated Complaint: THROWING UP Time Seen by Provider: 10/23/18 07:00 Source of Information: Reports: Patient History Limitations: Reports: No Limitations - History of Present Illness INITIAL COMMENTS - FREE TEXT/NARRATIVE: patient presents today with concern for stomach cramps, ongoing vomiting. He states his symptoms started yesterday at 10 AM, he was able to eat lunch but hasn't been able to have anything by mouth since then can keep down. He states he is vomiting repeatedly, last night it was every 20 minutes. It got so bad he couldn't sleep. He has not had any diarrhea, but had a normal bowel movement yesterday. He has ongoing lower abdominal cramping pain which can get quite severe. nothing seems to make his symptoms better or worse, sometimes he feels like just movement to sit up will cause him to throw up again. associated symptoms include some sweats, but no fever. No chest pain, shortness of breath, cough, any other symptoms. he does note that his bowels move regularly in the morning, but then he has to go again about 2 hours later, though formed. Has wondered sometimes if he gets obstructed. Not usually nauseous and normal diet otherwise. History significant for appendix removal, partial nephrectomy and hernia repair in that area with mesh. He does not drink any alcohol. Lower Abdomen Pain Score (Numeric/FACES): 10 - Related Data Allergies Allergy/AdvReac Type Severity Reaction Status Date / Time No Known Allergies Allergy Verified 09/24/18 18:45 Home Meds: Home Meds RX: Ranitidine [Zantac] 150 mg PO BID 07/22/16 [History] Topiramate 100 mg PO BEDTIME 04/05/18 [History] amLODIPine Besylate [Amlodipine Besylate] 10 mg PO BEDTIME 04/05/18 [History] FLUoxetine HCl [Fluoxetine HCl] 20 mg PO DAILY 10/23/18 [History] Past Medical History HEENT History: Reports: Other (See Below) Other HEENT History: hx eye ulcer in past Cardiovascular History: Reports: Hypertension Respiratory History: Reports: Other (See Below) Other Respiratory History: BROCNCHITIS Gastrointestinal History: Reports: GERD Genitourinary History: Reports: Renal Calculus Other Genitourinary History: renal cell CA R kidney Musculoskeletal History: Reports: Back Pain, Chronic, Fracture Oncologic (Cancer) History: Reports: Renal - Infectious Disease History Infectious Disease History: Reports: Chicken Pox, Shingles - Past Surgical History HEENT Surgical History: Reports: Tonsillectomy GI Surgical History: Reports: Appendectomy, Hernia, Abdominal Male Surgical History: Reports: Nephrectomy (partial) Musculoskeletal Surgical History: Reports: ORIF, Shoulder Surgery Social & Family History - Family History Family Medical History: Noncontributory - Tobacco Use Smoking Status *Q: Former Smoker Years of Tobacco use: 20 Packs/Tins Daily: 1 Used Tobacco, but Quit: Yes Month/Year Tobacco Last Used: 5 years ago Second Hand Smoke Exposure: No - Caffeine Use Caffeine Use: Reports: Soda Other Caffeine Use: mountain dew. - Alcohol Use Alcohol Use History: No - Recreational Drug Use Recreational Drug Use: No - Living Situation & Occupation Living situation: Reports: Occupation: Employed (Works at a local [employer]) ED ROS GENERAL - Review of Systems Review Of Systems: ROS reveals no pertinent complaints other than HPI. Constitutional: Reports: Chills, Diaphoresis. Denies: Fever HEENT: Reports: No Symptoms Respiratory: Reports: No Symptoms. Denies: Shortness of Breath, Wheezing, Pleuritic Chest Pain, Cough Cardiovascular: Reports: No Symptoms. Denies: Chest Pain, Lightheadedness, Palpitations Endocrine: Reports: No Symptoms GI/Abdominal: Reports: Abdominal Pain, Nausea, Vomiting. Denies: Constipation, Diarrhea, Hematochezia : Reports: No Symptoms Musculoskeletal: Reports: No Symptoms Skin: Reports: No Symptoms Neurological: Reports: No Symptoms Psychiatric: Reports: No Symptoms Hematologic/Lymphatic: Reports: No Symptoms Immunologic: Reports: No Symptoms ED EXAM, GENERAL - Physical Exam Exam: See Below Free Text/Narrative:: Gen.: Alert, slightly uncomfortable, answers questions appropriately. head atraumatic, pupils are equal and reactive. Throat is without erythema, mucous members are moist. No cervical or supraclavicular lymphadenopathy. Lungs are clear throughout with no wheezes or crackles and heart is regular rate and rhythm. peripheral pulses are +2 in the upper and lower extremities and there is no lower extremity edema. Muscular strength is equal side to side. Skin shows no obvious rashes or lesions. There are two vertical scars in the right mid abdomen abdominal exam shows diffuse tenderness, more prominent on the right side. He has hypoactive bowel sounds. There is no rebound or rigidity Course - Vital Signs Text/Narrative:: initial labs ordered, Zofran, IV fluid. Differential: Bowel obstruction versus gastroenteritis, possibility of hernia, other intra-abdominal infection at this point. Minimal risk factors for ulcers. Doesn't seem like gallbladder Last Recorded V/S: Last Vital Signs Temp 36.8 C 10/23/18 14:30 Pulse 81 10/23/18 14:30 Resp 18 10/23/18 14:30 BP 137/98 H 10/23/18 14:30 Pulse Ox 99 10/23/18 14:30 - Orders/Labs/Meds Labs: Laboratory Tests 10/23/18 10/23/18 10/23/18 Range/Units 07:07 07:07 07:07 WBC 15.2 H (4.5-12.0) X10-3/uL RBC 5.88 H (4.30-5.75) x10(6)uL Hgb 17.0 (13.5-17.8) g/dL Hct 48.9 (30.0-51.3) % MCV 83.1 (80-96) fL MCH 28.9 (27.7-33.6) pg MCHC 34.8 (32.2-35.4) g/dL RDW 13.2 (11.5-15.5) % Plt Count 240 (125-369) X10(3)uL MPV 8.3 (7.4-10.4) fL Add Manual Diff Yes Neutrophils % (Manual) 88 H (46-82) % Lymphocytes % (Manual) 10 L (13-37) % Monocytes % (Manual) 2 L (4-12) % Sodium 141 (135-145) mmol/L Potassium 4.0 (3.5-5.3) mmol/L Chloride 104 (100-110) mmol/L Carbon Dioxide 25 (21-32) mmol/L BUN 17 (7-18) mg/dL Creatinine 1.5 H (0.70-1.30) mg/dL Est Cr Clr Drug Dosing 68.98 mL/min Estimated GFR (MDRD) 51 L (>60) BUN/Creatinine Ratio 11.3 (9-20) Glucose 146 H (80-116) mg/dL Lactic Acid 1.8 (0.4-2.2) mmol/L Calcium 9.3 (8.6-10.2) mg/dL Total Bilirubin 1.2 (0.1-1.3) mg/dL AST 15 (5-25) IU/L ALT 30 (12-36) U/L Alkaline Phosphatase 110 (56-112) IU/L Total Protein 8.0 (6.0-8.0) g/dL Albumin 4.0 (3.5-5.2) g/dL Globulin 4.0 g/dL Albumin/Globulin Ratio 1.0 Amylase 90 (25-115) U/L Urine Color (YELLOW) Urine Appearance (CLEAR) Urine pH (5.0-6.5) Ur Specific [place] (1.010-1.025) Urine Protein (NEGATIVE) mg/dL Urine Glucose (UA) (NORMAL) mg/dL Urine Ketones (NEGATIVE) mg/dL Urine Occult Blood (NEGATIVE) Urine Nitrite (NEGATIVE) Urine Bilirubin (NEGATIVE) Urine Urobilinogen (NEGATIVE) mg/dL Ur Leukocyte Esterase (NEGATIVE) Urine WBC (0-5) Ur Squamous Epith Cells (NS,R,O) Urine Bacteria (NS) 10/23/18 Range/Units 07:53 WBC (4.5-12.0) X10-3/uL RBC (4.30-5.75) x10(6)uL Hgb (13.5-17.8) g/dL Hct (30.0-51.3) % MCV (80-96) fL MCH (27.7-33.6) pg MCHC (32.2-35.4) g/dL RDW (11.5-15.5) % Plt Count (125-369) X10(3)uL MPV (7.4-10.4) fL Add Manual Diff Neutrophils % (Manual) (46-82) % Lymphocytes % (Manual) (13-37) % Monocytes % (Manual) (4-12) % Sodium (135-145) mmol/L Potassium (3.5-5.3) mmol/L Chloride (100-110) mmol/L Carbon Dioxide (21-32) mmol/L BUN (7-18) mg/dL Creatinine (0.70-1.30) mg/dL Est Cr Clr Drug Dosing mL/min Estimated GFR (MDRD) (>60) BUN/Creatinine Ratio (9-20) Glucose (80-116) mg/dL Lactic Acid (0.4-2.2) mmol/L Calcium (8.6-10.2) mg/dL Total Bilirubin (0.1-1.3) mg/dL AST (5-25) IU/L ALT (12-36) U/L Alkaline Phosphatase (56-112) IU/L Total Protein (6.0-8.0) g/dL Albumin (3.5-5.2) g/dL Globulin g/dL Albumin/Globulin Ratio Amylase (25-115) U/L Urine Color Yellow (YELLOW) Urine Appearance Clear (CLEAR) Urine pH 6.0 (5.0-6.5) Ur Specific [place] 1.015 (1.010-1.025) Urine Protein Negative (NEGATIVE) mg/dL Urine Glucose (UA) Normal (NORMAL) mg/dL Urine Ketones Negative (NEGATIVE) mg/dL Urine Occult Blood Negative (NEGATIVE) Urine Nitrite Negative (NEGATIVE) Urine Bilirubin Negative (NEGATIVE) Urine Urobilinogen 1 H (NEGATIVE) mg/dL Ur Leukocyte Esterase Negative (NEGATIVE) Urine WBC 0-5 (0-5) Ur Squamous Epith Cells Few H (NS,R,O) Urine Bacteria Few H (NS) Meds: Medications Discontinued Medications Generic Name Dose Route Start Last Admin Trade Name Robbieq PRN Reason Stop Dose Admin Diatrizoate Meglum/Diatrizoate Sod 30 ml 10/23/18 09:16 10/23/18 09:33 Gastrografin 37% PO 10/23/18 09:17 30 ml . DIRECTED ONE Administration Sodium Chloride 1,000 mls @ 999 mls/hr 10/23/18 06:58 10/23/18 07:16 Normal Saline IV 10/23/18 07:58 999 mls/hr .BOLUS ONE Administration Sodium Chloride 1,000 mls @ 500 mls/hr 10/23/18 09:00 10/23/18 09:00 Normal Saline IV 500 mls/hr ASDIRECTED NIRU Administration Sodium Chloride 500 mls @ 500 mls/hr 10/23/18 11:09 10/23/18 11:20 Normal Saline IV 10/23/18 12:08 500 mls/hr .BOLUS ONE Administration Sodium Chloride 1,000 mls @ 150 mls/hr 10/23/18 13:30 10/23/18 13:54 Normal Saline IV 150 mls/hr ASDIRECTED NIRU Administration Iopamidol 150 ml 10/23/18 09:16 10/23/18 09:33 Isovue-370 (76%) IV 10/23/18 09:17 118 ml ONETIME ONE Administration Lidocaine HCl 2.5 ml 10/23/18 11:03 10/23/18 13:35 Xylocaine-Mpf 4% NEB 10/23/18 11:04 2.5 ml ONETIME ONE Administration Lidocaine HCl 6 ml 10/23/18 11:19 10/23/18 11:25 Glydo .XX 10/23/18 11:20 6 ml ONETIME ONE Administration Morphine Sulfate 2 mg 10/23/18 08:53 10/23/18 09:02 Morphine IVPUSH 10/23/18 08:54 2 mg ONETIME ONE Administration Morphine Sulfate 2 mg 10/23/18 08:54 10/23/18 09:44 Morphine IVPUSH 2 mg Q2H PRN Administration Abdominal Pain Morphine Sulfate 3 mg 10/23/18 11:18 10/23/18 11:25 Morphine IVPUSH 10/23/18 11:19 3 mg ONETIME ONE Administration Morphine Sulfate 3 mg 10/23/18 13:29 10/23/18 13:38 Morphine IVPUSH 3 mg Q2H PRN Administration Abdominal Pain Morphine Sulfate 4 mg 10/23/18 15:45 10/23/18 15:46 Morphine IVPUSH 10/23/18 15:46 4 mg ONETIME ONE Administration Morphine Sulfate 3 mg 10/23/18 15:44 Morphine IVPUSH Q2H PRN Abdominal Pain Ondansetron HCl 4 mg 10/23/18 06:58 10/23/18 07:16 Zofran IVPUSH 10/23/18 06:59 4 mg ONETIME ONE Administration Ondansetron HCl 4 mg 10/23/18 11:19 10/23/18 13:35 Zofran IVPUSH 10/23/18 11:20 4 mg ONETIME ONE Administration Ondansetron HCl Confirm 10/23/18 13:28 10/23/18 15:31 Zofran Administered 10/23/18 13:29 Not Given Dose 4 mg .ROUTE .STK-MED ONE - Re-Assessments/Exams Free Text/Narrative Re-Assessment/Exam: 10/23/18 labs reviewed, elevated white count, creatinine 1.5 which he thinks is baseline. pain and nausea improved after zofran. Discussed getting CT with IV and oral contrast, he is agreeable. Free Text/Narrative Re-Assessment/Exam: 10/23/18 patient with worsening pain and recurrent nausea after drinking part of contrast. Morphine ordered. First liter saline done, will hang second bag at 500cc/hr. proceed with CT scan Free Text/Narrative Re-Assessment/Exam: 10/23/18 radiologist called with results of CT scan, patient has evidence of small bowel obstruction that appears to be long-standing as some of the contents of the ileum or fecal some free fluid noted concerning for peritonitis contents of ileum appear to be fecalized discussed results with patient and management/admission. He reports that following his last surgery, he had an episode of NPPE where his airway closed and he woke up in the ICU 4 days later. Discussed case with local surgeon, who recommended transfer given his anesthesia history. Patient is also in agreement with this. NG tube placed, lidocaine neb and jelly used for comfort patient IVF (2L bolus plus maintenance given transfer delay), zofran, morphine. OK to go by BLS Call placed to [facility], who accepts for admission Departure - Departure Time of Disposition: 16:00 Disposition: DC/Tfer to Acute Hospital 02 Condition: Fair Clinical Impression: Small bowel obstruction - Discharge Information *PRESCRIPTION DRUG MONITORING PROGRAM REVIEWED*: Not Applicable *COPY OF PRESCRIPTION DRUG MONITORING REPORT IN PATIENT JAM: Not Applicable Referrals: Srinivas Garzon MD [Primary Care Provider] - Forms: ED Department Discharge
[2018-10-23] MEDS ORDERED: Morphine 2 MG/ML Syringe IVPUSH ONE ×2 (08:53→11:18)
[2018-10-23] MEDS ORDERED: Morphine 2 MG/ML Syringe IVPUSH PRN ×2 (08:54→13:29)
[2018-10-23] MEDS ORDERED: Sodium Chloride 0.9% 1,000 ML IV SCH ×2 (09:00→13:30)
[2018-10-23] MEDS ORDERED: Iopamidol 755 MG/ML 150 ML Bottle IV ONE (09:16)
[2018-10-23] MEDS ORDERED: Diatrizoate Meglumine/Diatrizoate Sodium 37% 30 ML Bottle PO ONE (09:16)
[2018-10-23] MEDS ORDERED: Lidocaine 4% 5 ML Amp NEB ONE (11:03)
[2018-10-23] MEDS ORDERED: Sodium Chloride 0.9% 500 ML IV ONE (11:09)
[2018-10-23] MEDS ORDERED: Lidocaine 2% HCl 6 ML JEL.PF.APP ONE (11:19)
--- NOTE | 2018-10-23 11:27 | CT ---
INDICATION: Question bowel obstruction. CT ABDOMEN AND PELVIS WITH CONTRAST: Spiral 3.75 mm axial sections were obtained through the abdomen and pelvis with oral and IV contrast (oral contrast was limited to one bottle, due to patients inability to consume a larger amount), with sagittal and coronal reconstructions, (118 mL Isovue 370 at 3 mL/second), 10/23/18, and compared with 04/05/18. Total exam DLP = 998.19 mGy-cm. Lower lung elise and pleural spaces visualized appeared normal. The heart appeared normal in size. No pericardial effusion was seen. The stomach is distended with mild thickening of the lining at the gastric antrum. Apparently no contrast extends beyond the gastric antrum. Multiple loops of dilated small bowel with minimal air fluid levels are noted. The dilated loops of small bowel extend into the right lower quadrant, where there is a transition to normal diameter small bowel with fecalized contents of the distalmost dilated proximal ileum noted. This would suggest a moderately snf mechanically obstructive process, which likely is partial in degree, as there is gas and stool in the colon and more distal normal caliber small bowel. The colon also is normal in caliber. The exact etiology of the obstructive process is not determined, although there is some free fluid at the distal loop of small bowel just proximal to the transition to normal caliber. There also appears to be some minimal free fluid extending into the pelvis through the pericolic gutter. Minimal free fluid extends to the inferior tip of the right lobe of the liver in the pericolic gutter also. There is evidence of previous partial nephrectomy on the right. Renal cortical scarring is noted bilaterally. A tiny low density lesion, likely a benign cyst, is noted in the upper middle pole of the left kidney. No definite obstructive uropathy was seen. The adrenal glands, liver, spleen, and pancreas appear to be normal. No gallstones were demonstrated. Gas and fluid containing structure along the medial aspect of the vertical portion of the duodenum at the pancreatic head may represent a duodenal diverticulum. This is seen on coronal images #48 through #52 and axial images #46 through #48. Apparently this area was present previously. It was not well seen due to lack of contrast utilized on the previous study. No retroperitoneal mass was identified. Minimal retroperitoneal lymphadenopathy is nonspecific. The appendix is absent, compatible with history of its removal. A minimal dextroconvex scoliosis of the lumbar spine is noted. A small low density abnormality is noted in the left lateral aspect of the L3 vertebral body, which was present on the previous CT scan of 07/29/17 and likely represents a benign process - possibly a minimal hemangiomatous formation in that area. No evidence of a ventral hernia was identified. IMPRESSION: 1. Distal small bowel obstruction at the level of the proximal ileum with transition to normal caliber small bowel in the right lower quadrant. In that area and extending into the pericolic gutter to the tip of the liver and also to the dome of the liver, as well as into the pelvis, is some free fluid, suggesting the possibility of peritonitis or possibly transudate due to inflammatory process. Findings may be on the basis of adhesions from previous surgery, although a process such as Crohns disease would be a consideration. The obstructive process appears to be fairly longstanding. A definite mass is not seen in this area. 2. Probable minimal hemangioma L3 vertebral body. 3. Post appendectomy. 4. Post partial nephrectomy on the right. 5. Renal cortical scarring. 6. Tiny cyst likely left kidney. Report was called to Dr. Roth at 1010 hours on 10/23/18. [facility]
[2018-10-23] MEDS ORDERED: Ondansetron 4 MG/2 ML SDV ONE (13:28)
--- NOTE | 2018-10-23 13:53 | CR ---
INDICATION: Chest tube placement. CHEST FOR NG TUBE PLACEMENT: A single AP view of the chest revealed a nasogastric tube in place with its tip at the fundus of the stomach. This could be advanced approximately 10 cm for better positioning. Report was called to Dr. Roth at 1208 hours on 10/23/18. [facility]
[2018-10-23 15:31] VITALS: BP 137/98; PULSE 81
[2018-10-23] MEDS ORDERED: Morphine 4 MG/ML Syringe IVPUSH ONE (15:35)
== END 2018-10-23 15:50 ==
LOC: FB.ED 06:35
DX: K56.609 Unspecified intestinal obstruction, unspecified as to partial versus complete obstruction (principal); I10 Essential (primary) hypertension; Z79.899 Other long term (current) drug therapy; Z87.891 Personal history of nicotine dependence; Z90.49 Acquired absence of other specified parts of digestive tract; Z98.890 Other specified postprocedural states; Z90.5 Acquired absence of kidney
CPT/HCPCS: 36415; 43752; 74177; 80053; 81001; 82150; 83605; 85025; 96361; 96374; 96375; 96376; 99285; A9270; J2001; J2270; J2405; J7030; J7040; Q9963; Q9967

== ENCOUNTER 2018-12-21 11:11 | Emergency (ER) | payer BC, MEDICAID ==
[2018-12-21] MEDS ORDERED: Sodium Chloride 0.9% 10 ML Syringe FLUSH PRN (11:30)
[2018-12-21] MEDS ORDERED: Ondansetron 4 MG/2 ML SDV IVPUSH ONE (11:35)
[2018-12-21] MEDS ORDERED: Sodium Chloride 0.9% 1,000 ML IV ONE (11:35)
[2018-12-21] MEDS ORDERED: Morphine 2 MG/ML Syringe IVPUSH ONE (11:38)
[2018-12-21] MEDS ORDERED: Diatrizoate Meglumine/Diatrizoate Sodium 37% 30 ML Bottle PO ONE (13:00)
[2018-12-21] MEDS ORDERED: Iopamidol 755 MG/ML 150 ML Bottle IV ONE (13:00)
--- NOTE | 2018-12-21 14:17 | EDM.PDOC ---
ED HPI GENERAL MEDICAL PROBLEM - General Chief Complaint: Gastrointestinal Problem Stated Complaint: ABD PAIN, VOMITING Time Seen by Provider: 12/21/18 11:25 Source of Information: Reports: Patient History Limitations: Reports: No Limitations - History of Present Illness INITIAL COMMENTS - FREE TEXT/NARRATIVE: Patient presented to the ED because of sudden onset of abdominal pain at 0400 which woke him up with severe RLQ pain and LLQ pain The pain is sharp,10/10 with associated N/V. He has a h/o SBO and he thinks he is having another one. abdomen Pain Score (Numeric/FACES): 8 - Related Data Allergies Allergy/AdvReac Type Severity Reaction Status Date / Time No Known Allergies Allergy Verified 12/21/18 12:26 Home Meds: Home Meds Topiramate 100 mg PO BEDTIME 04/05/18 [History] amLODIPine Besylate [Amlodipine Besylate] 10 mg PO BEDTIME 04/05/18 [History] FLUoxetine HCl [Fluoxetine HCl] 20 mg PO DAILY 10/23/18 [History] Acetaminophen/HYDROcodone [[place] 325-5 MG] 1 tab PO Q4H PRN #15 tab 12/21/18 [Rx ] Omeprazole 20 mg PO DAILY 12/21/18 [History] Ondansetron [Zofran ODT] 4 mg PO Q4H PRN #10 tab.dis 12/21/18 [Rx] Tamsulosin HCl [Flomax] 0.4 mg PO DAILY #15 capsule 12/21/18 [Rx] Past Medical History HEENT History: Reports: Other (See Below) Other HEENT History: hx eye ulcer in past Cardiovascular History: Reports: Hypertension Respiratory History: Reports: Other (See Below) Other Respiratory History: BROCNCHITIS Gastrointestinal History: Reports: GERD Genitourinary History: Reports: Renal Calculus Other Genitourinary History: renal cell CA R kidney Musculoskeletal History: Reports: Back Pain, Chronic, Fracture Oncologic (Cancer) History: Reports: Renal - Infectious Disease History Infectious Disease History: Reports: Chicken Pox, Shingles - Past Surgical History HEENT Surgical History: Reports: Tonsillectomy GI Surgical History: Reports: Appendectomy, Hernia, Abdominal Male Surgical History: Reports: Nephrectomy Musculoskeletal Surgical History: Reports: ORIF, Shoulder Surgery Social & Family History - Family History Family Medical History: Noncontributory - Tobacco Use Smoking Status *Q: Former Smoker Used Tobacco, but Quit: Yes Month/Year Tobacco Last Used: 5 years ago - Caffeine Use Caffeine Use: Reports: Coffee Other Caffeine Use: mountain dew. 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 Denies: Black Stool, Bloody Stool : Reports: No Symptoms Musculoskeletal: Reports: No Symptoms Skin: Reports: No Symptoms Neurological: Reports: No Symptoms Psychiatric: Reports: No Symptoms Hematologic/Lymphatic: Reports: No Symptoms ED EXAM, RENAL/ - Physical Exam Exam: See Below Exam Limited By: Altered Mental Status Eye Exam: Bilateral Eye: PERRL Ears: Normal External Exam, Normal Canal Nose: Normal Inspection, Normal Mucosa Throat/Mouth: Normal Inspection, Normal Lips, No Airway Compromise Head: Atraumatic, Normocephalic Neck: Normal Inspection, Supple, Non-Tender, Full Range of Motion Respiratory/Chest: No Respiratory Distress, Lungs Clear, Normal Breath Sounds, No Accessory Muscle Use Cardiovascular: Normal Peripheral Pulses, Regular Rate, Rhythm, No Murmur, Diastolic Murmur GI/Abdominal: Normal Bowel Sounds, Soft, Non-Tender, No Organomegaly, No Distention, No Abnormal Bruit (Male) Exam: No Hernia, Normal Inspection, Normal Prostate Back Exam: Normal Inspection Course - Vital Signs Text/Narrative:: labs, and CT scan reviewed and discussed with patient IVF saline bolus zofran 4 mg IV x1 Morphine 4 mg IV x1 Last Recorded V/S: Last Vital Signs Temp 37.1 C 12/21/18 11:20 Pulse 85 12/21/18 14:30 Resp 18 12/21/18 14:30 BP 148/95 H 12/21/18 14:30 Pulse Ox 100 12/21/18 14:30 - Orders/Labs/Meds Orders: Active Orders 24 hr Category Date Time Status Abdomen Pelvis w Cont [CT] Stat Exams 12/21/18 11:30 Taken Saline Lock Insert [OM.PC] Routine Oth 12/21/18 11:30 Ordered Labs: Laboratory Tests 12/21/18 12/21/18 12/21/18 Range/Units 11:45 11:45 11:45 WBC 6.8 (4.5-12.0) X10-3/uL RBC 5.54 (4.30-5.75) x10(6)uL Hgb 15.7 (13.5-17.8) g/dL Hct 45.2 (30.0-51.3) % MCV 81.5 (80-96) fL MCH 28.3 (27.7-33.6) pg MCHC 34.8 (32.2-35.4) g/dL RDW 13.5 (11.5-15.5) % Plt Count 186 (125-369) X10(3)uL MPV 8.2 (7.4-10.4) fL Neut % (Auto) 83.3 H (46-82) % Lymph % (Auto) 9.2 L (13-37) % Newton % (Auto) 6.9 (4-12) % Eos % (Auto) 0 L (1.0-5.0) % Baso % (Auto) 0 (0-2) % Neut # (Auto) 5.7 (1.6-8.3) # Lymph # (Auto) 0.6 (0.6-5.0) # Newton # (Auto) 0.5 (0.0-1.3) # Eos # (Auto) 0.0 (0.0-0.8) # Baso # (Auto) 0.0 (0.0-0.2) # Sodium 142 (135-145) mmol/L Potassium 3.8 (3.5-5.3) mmol/L Chloride 105 (100-110) mmol/L Carbon Dioxide 26 (21-32) mmol/L BUN 8 (7-18) mg/dL Creatinine 1.5 H (0.70-1.30) mg/dL Est Cr Clr Drug Dosing TNP Estimated GFR (MDRD) 51 L (>60) BUN/Creatinine Ratio 5.3 L (9-20) Glucose 92 (80-116) mg/dL Calcium 8.8 (8.6-10.2) mg/dL Total Bilirubin 0.9 (0.1-1.3) mg/dL AST 15 (5-25) IU/L ALT 20 D (12-36) U/L Alkaline Phosphatase 104 (56-112) IU/L Total Protein 8.0 (6.0-8.0) g/dL Albumin 4.2 (3.5-5.2) g/dL Globulin 3.8 g/dL Albumin/Globulin Ratio 1.1 Amylase 82 (25-115) U/L Lipase 162 (73-393) U/L Urine Color (YELLOW) Urine Appearance (CLEAR) Urine pH (5.0-6.5) Ur Specific [place] (1.010-1.025) Urine Protein (NEGATIVE) mg/dL Urine Glucose (UA) (NORMAL) mg/dL Urine Ketones (NEGATIVE) mg/dL Urine Occult Blood (NEGATIVE) Urine Nitrite (NEGATIVE) Urine Bilirubin (NEGATIVE) Urine Urobilinogen (NEGATIVE) mg/dL Ur Leukocyte Esterase (NEGATIVE) Urine WBC (0-5) Ur Squamous Epith Cells (NS,R,O) Urine Bacteria (NS) 12/21/18 Range/Units 13:25 WBC (4.5-12.0) X10-3/uL RBC (4.30-5.75) x10(6)uL Hgb (13.5-17.8) g/dL Hct (30.0-51.3) % MCV (80-96) fL MCH (27.7-33.6) pg MCHC (32.2-35.4) g/dL RDW (11.5-15.5) % Plt Count (125-369) X10(3)uL MPV (7.4-10.4) fL Neut % (Auto) (46-82) % Lymph % (Auto) (13-37) % [place] % (Auto) (4-12) % Eos % (Auto) (1.0-5.0) % Baso % (Auto) (0-2) % Neut # (Auto) (1.6-8.3) # Lymph # (Auto) (0.6-5.0) # Newton # (Auto) (0.0-1.3) # Eos # (Auto) (0.0-0.8) # Baso # (Auto) (0.0-0.2) # Sodium (135-145) mmol/L Potassium (3.5-5.3) mmol/L Chloride (100-110) mmol/L Carbon Dioxide (21-32) mmol/L BUN (7-18) mg/dL Creatinine (0.70-1.30) mg/dL Est Cr Clr Drug Dosing Estimated GFR (MDRD) (>60) BUN/Creatinine Ratio (9-20) Glucose (80-116) mg/dL Calcium (8.6-10.2) mg/dL Total Bilirubin (0.1-1.3) mg/dL AST (5-25) IU/L ALT (12-36) U/L Alkaline Phosphatase (56-112) IU/L Total Protein (6.0-8.0) g/dL Albumin (3.5-5.2) g/dL Globulin g/dL Albumin/Globulin Ratio Amylase (25-115) U/L Lipase (73-393) U/L Urine Color Yellow (YELLOW) Urine Appearance Clear (CLEAR) Urine pH 6.0 (5.0-6.5) Ur Specific [place] 1.010 (1.010-1.025) Urine Protein Negative (NEGATIVE) mg/dL Urine Glucose (UA) Normal (NORMAL) mg/dL Urine Ketones Negative (NEGATIVE) mg/dL Urine Occult Blood Negative (NEGATIVE) Urine Nitrite Negative (NEGATIVE) Urine Bilirubin Negative (NEGATIVE) Urine Urobilinogen Normal (NEGATIVE) mg/dL Ur Leukocyte Esterase Negative (NEGATIVE) Urine WBC 0-5 (0-5) Ur Squamous Epith Cells Few H (NS,R,O) Urine Bacteria Few H (NS) Meds: Medications Discontinued Medications Generic Name Dose Route Start Last Admin Trade Name Freq PRN Reason Stop Dose Admin Diatrizoate Meglum/Diatrizoate Sod 30 ml 12/21/18 13:00 12/21/18 13:20 Gastrografin 37% PO 12/21/18 13:01 30 ml . DIRECTED ONE Administration Sodium Chloride 1,000 mls @ 999 mls/hr 12/21/18 11:35 12/21/18 12:00 Normal Saline IV 12/21/18 12:35 999 mls/hr .BOLUS ONE Administration Iopamidol 150 ml 12/21/18 13:00 12/21/18 13:20 Isovue-370 (76%) IV 12/21/18 13:01 108 ml ONETIME ONE Administration Morphine Sulfate 4 mg 12/21/18 11:38 12/21/18 12:00 Morphine IVPUSH 12/21/18 11:39 4 mg ONETIME ONE Administration Ondansetron HCl 4 mg 12/21/18 11:35 12/21/18 12:00 Zofran IVPUSH 12/21/18 11:36 4 mg ONETIME ONE Administration Sodium Chloride 10 ml 12/21/18 11:30 12/21/18 11:55 Saline Flush FLUSH 10 ml ASDIRECTED PRN Administration Keep Vein Open Departure - Departure Time of Disposition: 14:15 Disposition: Home, Self-Care 01 Condition: Good Clinical Impression: Nephrolithiasis - Discharge Information Prescriptions: Acetaminophen/HYDROcodone [[place] 325-5 MG] 1 tab PO Q4H PRN #15 tab PRN Reason: Pain Ondansetron [Zofran ODT] 4 mg PO Q4H PRN #10 tab.dis PRN Reason: Nausea Tamsulosin HCl [Flomax] 0.4 mg PO DAILY #15 capsule Instructions: Kidney Stones, [id number]-Fyrm Referrals: Srinivas Garzon MD [Primary Care Provider] - Forms: ED Department Discharge Additional Instructions: Please read discharge instructions on kidney stones Increase oral fluids flomax/tamsulosin 0.4 mg, take 1 tablet once daily until your pain goes away Zofran/odansetron 4 mg ODT, take 1 tablet every 4 hours as needed for nausea [place]/hydrocodone 5/325, take 1-2 tablets every 4-6 gors as needed for pain follow up if symptoms persist - My Orders Last 24 Hours: My Active Orders 12/21/18 11:30 Abdomen Pelvis w Cont [CT] Stat Saline Lock Insert [OM.PC] Routine - Assessment/Plan Last 24 Hours: My Active Orders 12/21/18 11:30 Abdomen Pelvis w Cont [CT] Stat Saline Lock Insert [OM.PC] Routine
[2018-12-21 14:52] VITALS: BP 148/95; PULSE 85
== END 2018-12-21 14:30 | disposition home or self-care (01) ==
LOC: FB.ED 11:11
DX: N20.0 Calculus of kidney (principal); K21.9 Gastro-esophageal reflux disease without esophagitis; I10 Essential (primary) hypertension; Z79.899 Other long term (current) drug therapy; Z87.891 Personal history of nicotine dependence
CPT/HCPCS: 74177; 80053; 81001; 82150; 83690; 85025; 96361; 96374; 96375; 99284; J2270; J2405; J7030; Q9963; Q9967

== ENCOUNTER 2019-05-28 13:23 | Emergency (ER) | payer BC, MEDICAID ==
[2019-05-28] MEDS ORDERED: HYDROmorphone 2 MG/ML SDV IVPUSH ONE (13:47)
[2019-05-28] MEDS ORDERED: Sodium Chloride 0.9% 10 ML Syringe FLUSH PRN (13:47)
[2019-05-28] MEDS ORDERED: Ondansetron 4 MG/2 ML SDV IVPUSH ONE (13:47)
--- NOTE | 2019-05-28 13:50 | EDM.PDOC ---
ED HPI GENERAL MEDICAL PROBLEM - General Chief Complaint: Abdominal Pain Stated Complaint: SBO Time Seen by Provider: 05/28/19 13:48 Source of Information: Reports: Patient History Limitations: Reports: No Limitations - History of Present Illness INITIAL COMMENTS - FREE TEXT/NARRATIVE: Colten is complaining of severe, colicky abdominal pain,vomiting and constipation since 3 am this morning. The pain is not relived by anything. No urinary symptoms. Has a h/o SBO,hernia repair,appy and kidney removal (left). Bilateral Middle Abdominal Pain Score (Numeric/FACES): 2 - Related Data Allergies Allergy/AdvReac Type Severity Reaction Status Date / Time No Known Allergies Allergy Verified 05/28/19 13:35 Home Meds: Home Meds Topiramate 100 mg PO BEDTIME 04/05/18 [History] amLODIPine Besylate [Amlodipine Besylate] 10 mg PO BEDTIME 04/05/18 [History] FLUoxetine HCl [Fluoxetine HCl] 20 mg PO DAILY 10/23/18 [History] Omeprazole 20 mg PO DAILY 12/21/18 [History] Past Medical History HEENT History: Reports: Other (See Below) Other HEENT History: hx eye ulcer in past Cardiovascular History: Reports: Hypertension Respiratory History: Reports: Other (See Below) Other Respiratory History: BROCNCHITIS Gastrointestinal History: Reports: GERD Genitourinary History: Reports: Renal Calculus Other Genitourinary History: renal cell CA R kidney Musculoskeletal History: Reports: Back Pain, Chronic, Fracture Oncologic (Cancer) History: Reports: Renal - Infectious Disease History Infectious Disease History: Reports: Chicken Pox, Shingles - Past Surgical History HEENT Surgical History: Reports: Tonsillectomy GI Surgical History: Reports: Appendectomy, Hernia, Abdominal Male Surgical History: Reports: Nephrectomy Musculoskeletal Surgical History: Reports: ORIF, Shoulder Surgery Social & Family History - Family History Family Medical History: Noncontributory - Caffeine Use Caffeine Use: Reports: Coffee Other Caffeine Use: mountain dew. 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 HEENT: Reports: Other (EYE spots-Left eye x 1 mo) Respiratory: Reports: No Symptoms ED EXAM, GI/ABD - Physical Exam Exam: See Below Exam Limited By: No Limitations General Appearance: Alert, WD/WN Throat/Mouth: Normal Inspection Respiratory/Chest: No Respiratory Distress, Lungs Clear GI/Abdominal Exam: Soft, No Organomegaly, No Distention, Tender, Abnormal Bowel Sounds. No: Guarding, Rebound, Mass, Hepatomegaly Back Exam: Normal Inspection Extremities: Normal Inspection Course - Vital Signs Last Recorded V/S: Last Vital Signs Temp 97.2 F 05/28/19 15:10 Pulse 72 05/28/19 15:10 Resp 20 05/28/19 15:10 BP 140/90 05/28/19 15:10 Pulse Ox 99 05/28/19 15:10 - Orders/Labs/Meds Orders: Active Orders 24 hr Category Date Time Status Peripheral IV Insertion Adult [OM.PC] Routine Oth 05/28/19 13:46 Ordered Labs: Laboratory Tests 05/28/19 05/28/19 Range/Units 14:04 14:04 WBC 10.1 (4.5-12.0) X10-3/uL RBC 5.12 (4.30-5.75) x10(6)uL Hgb 14.6 (13.5-17.8) g/dL Hct 42.5 (30.0-51.3) % MCV 83.1 (80-96) fL MCH 28.6 (27.7-33.6) pg MCHC 34.4 (32.2-35.4) g/dL RDW 13.3 (11.5-15.5) % Plt Count 190 (125-369) X10(3)uL MPV 8.0 (7.4-10.4) fL Add Manual Diff Yes Neutrophils % (Manual) 91 H (46-82) % Lymphocytes % (Manual) 7 L (13-37) % Monocytes % (Manual) 2 L (4-12) % Sodium 142 (135-145) mmol/L Potassium 4.0 (3.5-5.3) mmol/L Chloride 108 (100-110) mmol/L Carbon Dioxide 26 (21-32) mmol/L BUN 15 (7-18) mg/dL Creatinine 1.4 H (0.70-1.30) mg/dL Est Cr Clr Drug Dosing 73.13 mL/min Estimated GFR (MDRD) 55 L (>60) BUN/Creatinine Ratio 10.7 (9-20) Glucose 99 (80-116) mg/dL Calcium 8.1 L (8.6-10.2) mg/dL Total Bilirubin 0.6 (0.1-1.3) mg/dL AST 15 (5-25) IU/L ALT 22 (12-36) U/L Alkaline Phosphatase 99 (56-112) IU/L Total Protein 7.3 (6.0-8.0) g/dL Albumin 3.7 (3.5-5.2) g/dL Globulin 3.6 g/dL Albumin/Globulin Ratio 1.0 Meds: Medications Discontinued Medications Generic Name Dose Route Start Last Admin Trade Name Freq PRN Reason Stop Dose Admin Hydromorphone HCl 2 mg 05/28/19 13:47 05/28/19 14:01 Dilaudid IVPUSH 05/28/19 13:48 2 mg ONETIME ONE Administration Sodium Chloride 1,000 mls @ 999 mls/hr 05/28/19 14:00 05/28/19 13:50 Normal Saline IV 999 mls/hr ASDIRECTED NIRU Administration Iopamidol 100 ml 05/28/19 14:51 05/28/19 15:10 Isovue-370 (76%) IV 05/28/19 14:52 89 ml ONETIME ONE Administration Ondansetron HCl 8 mg 05/28/19 13:47 05/28/19 13:55 Zofran IVPUSH 05/28/19 13:48 8 mg ONETIME ONE Administration Sodium Chloride 10 ml 05/28/19 13:47 05/28/19 13:50 Saline Flush FLUSH 10 ml ASDIRECTED PRN Administration Keep Vein Open Departure - Departure Time of Disposition: 17:26 Disposition: Home, Self-Care 01 Condition: Good Clinical Impression: Abdominal pain - Discharge Information Instructions: Abdominal Pain, Adult, [id number]-[id number] Referrals: Srinivas Garzon MD [Primary Care Provider] - Forms: ED Department Discharge Care Plan Goals: Follow up as needed Sepsis Event Note - Evaluation Sepsis Screening Result: No Definite Risk - Focused Exam Vital Signs: Vital Signs Temp Pulse Resp BP Pulse Ox 05/28/19 15:10 97.2 F 72 20 140/90 99 05/28/19 13:25 91 18 140/94 H 10 L Date Exam was Performed: 05/28/19 Time Exam was Performed: 17:23 - Problem List & Annotations (1) Vomiting SNOMED Code(s): 358570758 Code(s): R11.10 - VOMITING, UNSPECIFIED Status: Acute Qualifiers: Vomiting type: unspecified Vomiting Intractability: non-intractable (2) Abdominal pain SNOMED Code(s): 88679688 Code(s): R10.9 - UNSPECIFIED ABDOMINAL PAIN Status: Acute - Problem List Review Problem List Initiated/Reviewed/Updated: Yes - My Orders Last 24 Hours: My Active Orders 05/28/19 13:46 Peripheral IV Insertion Adult [OM.PC] Routine - Assessment/Plan Last 24 Hours: My Active Orders 05/28/19 13:46 Peripheral IV Insertion Adult [OM.PC] Routine Plan: Patient improved markedly with fluids,IV Dilaudid and IV Zofran.CT abd pelvis with contrast was negative
[2019-05-28] MEDS ORDERED: Sodium Chloride 0.9% 1,000 ML IV SCH (14:00)
[2019-05-28] MEDS ORDERED: Iopamidol 755 Mg/ML 100 ML Bottle IV ONE (14:51)
[2019-05-28 15:21] VITALS: BP 140/90; PULSE 72
--- NOTE | 2019-05-28 15:45 | CT ---
INDICATION: Small bowel obstruction history. Question new small bowel obstruction. CT ABDOMEN AND PELVIS WITH CONTRAST: Spiral 3.75 mm axial sections were obtained through the abdomen and pelvis with oral and IV contrast (87 cc Isovue 370 at 2 cc/sec) with sagittal and coronal reconstructions 05/28/2019 and compared with 12/21/2018. Total exam DLP was 914.63 mGy-cm. The lower lung elise and pleural spaces visualized show no evidence of definite active infiltrate or effusion. The upper abdominal organs, including the liver, gallbladder, adrenal glands and pancreas, appear to be normal. The spleen is again noted to be somewhat enlarged measuring 15 cm in anterior posterior diameter and essentially unchanged from the previous study. The adrenal glands were unremarkable. There is evidence of renal calcinosis and renal cortical scarring as well as postsurgical change at the lower pole of the right kidney, as previously. No definite evidence of obstructive uropathy was seen. The appendix is absent compatible with history of its removal. No evidence of free air or bowel obstruction was identified. A mild dextroconvex scoliosis is noted of the lumbar spine with narrowing of the L4-5 disk space and minimal retrolisthesis at the L4-5 level. No retroperitoneal mass was seen. No organomegaly, mass lesions or free fluid collections were identified in the abdomen or pelvis. No evidence of recurrent herniation is seen. IMPRESSION: 1. No evidence of small bowel obstruction. 2. Post appendectomy, partial nephrectomy. 3. Renal cortical scarring and a tiny probable simple, stable cyst cortex midpole anterior left kidney. Renal calcinosis is nonobstructive at this time. 4. Multiple clips at the lower pole of the right kidney compatible with partial nephrectomy - resection of previous CA. Report was given by phone to Dr. Garzon at 15:22 hours. [facility]
== END 2019-05-28 15:35 | disposition home or self-care (01) ==
LOC: FB.ED 13:23
DX: R10.9 Unspecified abdominal pain (principal); K21.9 Gastro-esophageal reflux disease without esophagitis; I10 Essential (primary) hypertension; Z79.899 Other long term (current) drug therapy
CPT/HCPCS: 36415; 74177; 80053; 85025; 96361; 96374; 96375; 99284-25; J1170; J2405; J7030; Q9967

== ENCOUNTER 2019-12-06 09:06 | Emergency (ER) | payer BC, MEDICAID ==
[2019-12-06] MEDS ORDERED: Sodium Chloride 0.9% 1,000 ML IV ONE (09:42)
[2019-12-06] MEDS ORDERED: HYDROmorphone 2 MG/ML SDV IVPUSH ONE ×2 (09:43→11:30)
[2019-12-06] MEDS ORDERED: Tamsulosin 0.4 MG Cap.ER PO ONE (09:43)
--- NOTE | 2019-12-06 09:49 | EDM.PDOC ---
ED HPI GENERAL MEDICAL PROBLEM - General Chief Complaint: Flank Pain Stated Complaint: POSSIBLE KIDNEY STONES Time Seen by Provider: 12/06/19 09:30 Source of Information: Reports: Patient History Limitations: Reports: No Limitations - History of Present Illness INITIAL COMMENTS - FREE TEXT/NARRATIVE: gradual onset of right side flank pain Got worse overnight has no fever or chills has history of renal calculi , states this si similar , pain is about 8/10 has history of bowel obstruction states pain is not similar and usually will have vomiting Right Flank Pain Score (Numeric/FACES): 10 - Related Data Allergies Allergy/AdvReac Type Severity Reaction Status Date / Time No Known Allergies Allergy Verified 05/28/19 13:35 Home Meds: Home Meds Topiramate 100 mg PO BEDTIME 04/05/18 [History] amLODIPine Besylate [Amlodipine Besylate] 10 mg PO BEDTIME 04/05/18 [History] FLUoxetine HCl [Fluoxetine HCl] 20 mg PO DAILY 10/23/18 [History] Omeprazole 20 mg PO DAILY 12/21/18 [History] Hydrocodone/Acetaminophen [Hydrocodon-Acetaminophen 5-325] 1 each PO Q8HR #10 tablet 12/06/19 [Rx] Tamsulosin HCl [Flomax] 0.4 mg PO DAILY #30 cap.er.24h 12/06/19 [Rx] predniSONE [Prednisone] 40 mg PO DAILY #10 tablet 12/06/19 [Rx] Past Medical History HEENT History: Reports: Other (See Below) Other HEENT History: hx eye ulcer in past Cardiovascular History: Reports: Hypertension Respiratory History: Reports: Other (See Below) Other Respiratory History: BROCNCHITIS Gastrointestinal History: Reports: GERD Genitourinary History: Reports: Renal Calculus Other Genitourinary History: renal cell CA R kidney Musculoskeletal History: Reports: Back Pain, Chronic, Fracture Oncologic (Cancer) History: Reports: Renal - Infectious Disease History Infectious Disease History: Reports: Chicken Pox, Shingles - Past Surgical History HEENT Surgical History: Reports: Tonsillectomy GI Surgical History: Reports: Appendectomy, Hernia, Abdominal Male Surgical History: Reports: Nephrectomy Musculoskeletal Surgical History: Reports: ORIF, Shoulder Surgery Social & Family History - Family History Family Medical History: Noncontributory - Caffeine Use Caffeine Use: Reports: Coffee Other Caffeine Use: mountain dew. - Living Situation & Occupation Living situation: Reports: Occupation: Employed (Works at a local [employer]) ED ROS GENERAL - Review of Systems Review Of Systems: See Below Constitutional: Reports: No Symptoms, Decreased Appetite. Denies: Fever, Chills, Malaise HEENT: Reports: No Symptoms Respiratory: Reports: No Symptoms Cardiovascular: Reports: No Symptoms Endocrine: Reports: No Symptoms GI/Abdominal: Reports: No Symptoms : Reports: Flank Pain, Hematuria, Urgency Musculoskeletal: Reports: No Symptoms Skin: Reports: No Symptoms Neurological: Reports: No Symptoms Psychiatric: Reports: No Symptoms Hematologic/Lymphatic: Reports: No Symptoms ED EXAM, RENAL/ - Physical Exam Exam: See Below Exam Limited By: No Limitations General Appearance: Alert, WD/WN, Mild Distress (In obvious pain ) Eye Exam: Bilateral Eye: EOMI Ears: Normal External Exam Nose: Normal Inspection Throat/Mouth: Normal Oropharynx Head: Atraumatic, Normocephalic Neck: Supple, Non-Tender Respiratory/Chest: Lungs Clear Cardiovascular: Regular Rate, Rhythm Back Exam: Normal Inspection. No: CVA Tenderness (R), CVA Tenderness (L) Extremities: Normal Inspection, Normal Range of Motion Neurological: Alert, Oriented, CN II-XII Intact Psychiatric: Normal Affect Skin Exam: Warm, Dry Course - Vital Signs Last Recorded V/S: Last Vital Signs Temp 36.7 C 12/06/19 12:20 Pulse 75 12/06/19 12:20 Resp 18 12/06/19 12:20 BP 136/86 12/06/19 12:20 Pulse Ox 99 12/06/19 12:20 - Orders/Labs/Meds Labs: Laboratory Tests 12/06/19 12/06/19 12/06/19 Range/Units 09:30 09:50 09:50 WBC 8.4 (4.5-12.0) X10-3/uL RBC 5.27 (4.30-5.75) x10(6)uL Hgb 14.7 (13.5-17.8) g/dL Hct 43.4 (30.0-51.3) % MCV 82.4 (80-96) fL MCH 27.9 (27.7-33.6) pg MCHC 33.9 (32.2-35.4) g/dL RDW 13.0 (11.5-15.5) % Plt Count 210 (125-369) X10(3)uL Sodium 140 (135-145) mmol/L Potassium 4.2 (3.5-5.3) mmol/L Chloride 104 (100-110) mmol/L Carbon Dioxide 28 (21-32) mmol/L BUN 17 (7-18) mg/dL Creatinine 1.4 H (0.70-1.30) mg/dL Est Cr Clr Drug Dosing 72.37 mL/min Estimated GFR (MDRD) 55 L (>60) BUN/Creatinine Ratio 12.1 (9-20) Glucose 99 (80-116) mg/dL Calcium 8.9 (8.6-10.2) mg/dL Urine Color Yellow (YELLOW) Urine Appearance Slightly cloudy (CLEAR) Urine pH 5.0 (5.0-6.5) Ur Specific [place] 1.020 (1.010-1.025) Urine Protein Negative (NEGATIVE) mg/dL Urine Glucose (UA) Normal (NORMAL) mg/dL Urine Ketones Negative (NEGATIVE) mg/dL Urine Occult Blood Large H (NEGATIVE) Urine Nitrite Negative (NEGATIVE) Urine Bilirubin Negative (NEGATIVE) Urine Urobilinogen Normal (NEGATIVE) mg/dL Ur Leukocyte Esterase Negative (NEGATIVE) Urine RBC >100 H (0-5) Urine WBC 0-5 (0-5) Ur Squamous Epith Cells Occasional (NS,R,O) Urine Bacteria Few H (NS) Meds: Medications Discontinued Medications Generic Name Dose Route Start Last Admin Trade Name Freq PRN Reason Stop Dose Admin Hydromorphone HCl 1 mg 12/06/19 09:43 12/06/19 10:20 Dilaudid IVPUSH 12/06/19 09:44 1 mg ONETIME ONE Administration Hydromorphone HCl 1 mg 12/06/19 11:30 12/06/19 11:41 Dilaudid IVPUSH 12/06/19 11:31 1 mg ONETIME ONE Administration Sodium Chloride 1,000 mls @ 999 mls/hr 12/06/19 09:42 12/06/19 10:10 Normal Saline IV 12/06/19 10:42 999 mls/hr .BOLUS ONE Administration Ondansetron HCl 4 mg 12/06/19 09:52 12/06/19 10:11 Zofran IVPUSH 12/06/19 09:53 4 mg ONETIME ONE Administration Sodium Chloride 10 ml 12/06/19 10:15 12/06/19 11:40 Saline Flush FLUSH 10 ml UPON PRN Administration Keep Vein Open Tamsulosin HCl 0.4 mg 12/06/19 09:43 12/06/19 10:03 Flomax PO 12/06/19 09:44 0.4 mg ONETIME ONE Administration Departure - Departure Time of Disposition: 13:30 Disposition: Home, Self-Care 01 Condition: Fair Clinical Impression: Renal calculus, right, Ureteral stone with hydronephrosis - Discharge Information *PRESCRIPTION DRUG MONITORING PROGRAM REVIEWED*: Not Applicable *COPY OF PRESCRIPTION DRUG MONITORING REPORT IN PATIENT JAM: Not Applicable Prescriptions: Tamsulosin HCl [Flomax] 0.4 mg PO DAILY #30 cap.er.24h Hydrocodone/Acetaminophen [Hydrocodon-Acetaminophen 5-325] 1 each PO Q8HR #10 tablet predniSONE [Prednisone] 40 mg PO DAILY #10 tablet Instructions: Ondansetron injection, Hydromorphone injection, Kidney Stones, [id number], Tamsulosin capsules Referrals: Srinivas Garzon MD [Primary Care Provider] - Forms: ED Department Discharge Additional Instructions: 1) Increase fluid intake 2) Strain urine 3) make appointment to [facility] doctor on tuesday or tuesday for FU 4) if symptoms do not improve as expected , you will need to see a Urologist 5) Call with any concerns Sepsis Event Note (ED) - Evaluation Sepsis Screening Result: No Definite Risk - Focused Exam Vital Signs: Vital Signs Temp Pulse Resp BP Pulse Ox 12/06/19 12:20 36.7 C 75 18 136/86 99 12/06/19 09:15 35.9 C L 74 20 155/99 H 100
[2019-12-06] MEDS ORDERED: Ondansetron 4 MG/2 ML SDV IVPUSH ONE (09:52)
[2019-12-06] MEDS: Sodium Chloride 0.9% 10 ML Syringe FLUSH PRN ×4 (10:10→11:40)
--- NOTE | 2019-12-06 11:47 | CT ---
INDICATION: Renal calculi. CT ABDOMEN AND PELVIS WITHOUT CONTRAST: Spiral 2.5 mm axial sections were obtained through the abdomen and pelvis without contrast - renal calculus protocol - with sagittal and coronal reconstructions 12/06/19 and compared with 05/28/19. Total exam DLP was 956.71 mGy-cm. The lower lung elise and pleural spaces visualized appeared normal. The heart appeared normal in size. No pericardial effusion was seen. The liver, gallbladder, pancreas, and adrenal glands appeared normal. The spleen is again noted to be enlarged measuring 15 cm in maximum diameter. No retroperitoneal mass was seen. Postsurgical site is noted at the lower pole anterior lateral cortex of the right kidney with numerous clips in place and some dystrophic calcification noted. A definite recurrent neoplasia is not seen in that area. Renal cortical scarring is noted bilaterally with irregularity of the renal cortices, perhaps more severe on the left than on the right. Nephrocalcinosis is again noted with numerous calculi of varying sizes, mostly small scattered throughout the calices. No evidence of obstructive uropathy is noted on the left. On the right, there is a moderate degree of hydronephrosis with pyelocaliectasis and ureterectasis most visible distally with a 3.4 mm calculus in the distal right ureter just superior - 2.5 to 5 mm from the ureterovesical junction. No calculi were seen within the urinary bladder which was unremarkable. The appendix is not visualized compatible with appendectomy. No evidence of free air or bowel obstruction was seen. No additional organomegaly, mass lesions or free fluid collections were identified in the abdomen or pelvis. IMPRESSION: 1. Obstructive uropathy of moderate degree at the right kidney due to a 3.4 mm calculus at the distal ureter just above the ureterovesical junction. 2. Nephrocalcinosis. 3. Renal cortical scarring. 4. Postsurgical lower pole right kidney apparently for neoplasia which does not appear to have recurred. 5. Post appendectomy. Report was called to Dr. Joyce at 1111 hours. [facility]
[2019-12-06 13:36] VITALS: BP 136/86; PULSE 75
== END 2019-12-06 12:20 | disposition home or self-care (01) ==
LOC: FB.ED 09:06
DX: N13.2 Hydronephrosis with renal and ureteral calculous obstruction (principal); I10 Essential (primary) hypertension; K21.9 Gastro-esophageal reflux disease without esophagitis; Z79.82 Long term (current) use of aspirin; Z79.899 Other long term (current) drug therapy
CPT/HCPCS: 36415; 74176; 80048; 81001; 85027; 96374; 96375; 96376; 99284; A9270; J1170; J2405; J7030

== ENCOUNTER 2019-12-26 12:41 | Inpatient (IN) | payer BC, MEDICAID ==
[2019-12-26] MEDS ORDERED: Sodium Chloride 0.9% 10 ML Syringe FLUSH PRN (12:50)
[2019-12-26] MEDS ORDERED: Ondansetron 4 MG/2 ML SDV IVPUSH ONE (12:52)
[2019-12-26] MEDS ORDERED: Morphine 4 MG/ML VIAL IVPUSH ONE (12:52)
[2019-12-26] MEDS ORDERED: Sodium Chloride 0.9% 1,000 ML IV SCH (13:00)
[2019-12-26] MEDS ORDERED: Piperacillin/Tazobactam 3.375 GM in Sodium Chloride 0.9% 50 ML IV STA (14:50)
--- NOTE | 2019-12-26 15:02 | CT ---
INDICATION: Right-sided abdominal pain/history of small bowel obstruction and kidney stone. History of low pole right renal neoplasia with postsurgical change. CT ABDOMEN AND PELVIS WITHOUT CONTRAST: Spiral 2.5 mm axial sections were obtained through the abdomen and pelvis without contrast with sagittal and coronal reconstructions 12/26/19 and compared with 12/06/19. Total exam DLP was 1200.09 mGy-cm. The lower lung elise and pleural spaces visualized appeared normal. The liver appeared normal. No gallstones were demonstrated. The adrenal glands appeared normal. The spleen is enlarged as previously, measuring 15 cm. The pancreas appeared normal. No hepatobiliary ductal dilatation was noted. The right kidney now shows no evidence of obstructive uropathy with pyelocaliceal system normal in caliber bilaterally. Renal calcinosis is again noted and appears fairly stable on the right, and also stable on the left with greater degree of renal calcinosis at the left kidney than on the right. Renal fascial thickening is noted, compatible with renal cortical scarring of mild degree bilaterally. At the lower pole of the right kidney, there are again noted multiple clips compatible with previous resection of neoplastic process. No definite recurrence is noted. However as mentioned above, no IV contrast was utilized, which limits that evaluation somewhat. No definite retroperitoneal mass was seen with a mild degree of retroperitoneal lymphadenopathy, unchanged and nonspecific. The appendix is again noted to be absent, compatible with history of its removal. No evidence of free air was seen. Multiple loops of dilated ileum were noted with air-fluid levels, compatible with a distal ileal obstructive process in the mid-lower pelvis area. There also is minimal fluid adjacent to 1 of the loops of dilated ileum. Fluid extends into the prerectal space additionally, which likely is related to the apparent obstruction of the bowel. There is a transition to normal caliber in the right lower quadrant with no specific etiology of obstruction. The relative obstruction may be on the basis of a paralytic process, such as secondary to inflammation of the bowel. The remainder of the bowel appeared relatively unremarkable except for relative distention of the stomach. IMPRESSION: 1. There appears to be a paralytic process of obstruction of the ileum distally with transition to normal caliber ileum in the right lower quadrant. There is fat stranding surrounding the affected loops with ascitic fluid extending adjacent to the loops and into the pelvis. Findings may represent an inflammatory process, either infection or possibly process such as Crohn's disease. A definite mechanically obstructed process is not identified. No free air was seen. 2. Postsurgical lower pole right kidney with no definite recurrence, limited by lack of IV contrast. 3. Renal calcinosis, essentially unchanged, more prominent on left than right with no obstructive uropathy seen at this time. 4. Postappendectomy. 5. Renal cortical scarring. 6. Mild dextroconvex scoliosis of the lumbar spine with degenerative disk disease suggested at L4-5 where there is very minimal retrolisthesis noted. 7. Slight thickening of the urinary bladder wall of questionable significance. 8. Minimal ASD with some minimal calcifications noted in the aorta and very minimally in the left iliac artery. Report was called to Dr. Gautam at 1626 hours. [facility]
[2019-12-26] MEDS ORDERED: HYDROmorphone 2 MG/ML SDV IVPUSH ONE (15:07)
--- NOTE | 2019-12-26 16:23 | EDM.PDOC ---
ED HPI GENERAL MEDICAL PROBLEM - General Chief Complaint: Abdominal Pain Stated Complaint: ABD PAIN Time Seen by Provider: 12/26/19 12:55 Source of Information: Reports: Patient History Limitations: Reports: No Limitations - History of Present Illness INITIAL COMMENTS - FREE TEXT/NARRATIVE: Patient presented to the ED because of Right sided abdominal pain which started yesterday and is progressively getting worse. The pain is sharp and cramping, 11/23 with associated nausea and vomiting at least 4 times. There is no fever, chills, cough or cold symptoms. He was diagnose with nephrolithiasis on 12/06/19 and saw a urologist recently for a renal stent placement. He also have history of having SBO in the past and he feels like he is having another one. Lower abdomen, R>L Pain Score (Numeric/FACES): 10 - Related Data Allergies Allergy/AdvReac Type Severity Reaction Status Date / Time No Known Allergies Allergy Verified 12/26/19 13:11 Home Meds: Home Meds Topiramate 75 mg PO BEDTIME 04/05/18 [History] amLODIPine Besylate [Amlodipine Besylate] 10 mg PO BEDTIME 04/05/18 [History] FLUoxetine HCl [Fluoxetine HCl] 20 mg PO BEDTIME 10/23/18 [History] Omeprazole 20 mg PO BEDTIME 12/21/18 [History] Past Medical History HEENT History: Reports: Other (See Below) Other HEENT History: hx eye ulcer in past Cardiovascular History: Reports: Hypertension Respiratory History: Reports: Other (See Below) Other Respiratory History: BROCHITIS Gastrointestinal History: Reports: GERD Other Gastrointestinal History: 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 No surgery done. Genitourinary History: Reports: Renal Calculus Other Genitourinary History: renal cell CA R kidney Musculoskeletal History: Reports: Back Pain, Chronic, Fracture, Other (See Below) Other Musculoskeletal History: hx fx L tib fib, L arm, R arm, ribs, compression fx to back, bilat wrist fx Neurological History: Reports: Migraines Psychiatric History: Reports: Depression Other Psychiatric History: treated w/prozac daily Hematologic History: Reports: Anesthesia Reaction, Blood Transfusion(s) Other Hematologic History: states coma X4 days s/p rt incisional hernia repair, had Pulmonary edema s/p. Oncologic (Cancer) History: Reports: Renal Other Oncologic History: Renal cell Carcinoma 3 yrs ago. - Infectious Disease History Infectious Disease History: Reports: Shingles - Past Surgical History HEENT Surgical History: Reports: Adenoidectomy, Tonsillectomy Respiratory Surgical History: Reports: None GI Surgical History: Reports: Appendectomy, Colonoscopy, EGD, Hernia, Abdominal Male Surgical History: Reports: Nephrectomy Other Male Surgeries/Procedures: partial R kidney nephrectomy Musculoskeletal Surgical History: Reports: ORIF, Shoulder Surgery Other Musculoskeletal Surgeries/Procedures:: bilat elbow surg, 7 R shoulder surg, Oncologic Surgical History: Reports: Other (See Below) Other Oncologic Surgeries/Procedures: R partial nephrectomy Social & Family History - Family History Family Medical History: No Pertinent Family History - Tobacco Use Tobacco Use Status *Q: Former Tobacco User Years of Tobacco use: 20 Used Tobacco, but Quit: Yes Month/Year Tobacco Last Used: 2014 - Caffeine Use Caffeine Use: Reports: Soda Other Caffeine Use: mountain dew. Caffeine Use Comment: soda 1.5 liters daily. - Recreational Drug Use Recreational Drug Use: No - Living Situation & Occupation Living situation: Reports: Occupation: Employed (Works at a [employer]) ED ROS GENERAL - Review of Systems Review Of Systems: See Below Constitutional: Reports: No Symptoms HEENT: Reports: No Symptoms Respiratory: Reports: No Symptoms Cardiovascular: Reports: No Symptoms Endocrine: Reports: No Symptoms GI/Abdominal: Reports: Abdominal Pain, Constipation, Nausea, Vomiting : Reports: No Symptoms Musculoskeletal: Reports: No Symptoms Skin: Reports: No Symptoms Neurological: Reports: No Symptoms Psychiatric: Reports: No Symptoms Hematologic/Lymphatic: Reports: No Symptoms ED EXAM, GI/ABD - Physical Exam Exam: See Below Exam Limited By: No Limitations General Appearance: Alert, No Apparent Distress Nose: Normal Inspection, Normal Mucosa Throat/Mouth: Normal Inspection, Normal Lips Head: Atraumatic, Normocephalic Neck: Normal Inspection, Supple, Non-Tender Respiratory/Chest: No Respiratory Distress, Lungs Clear, Normal Breath Sounds Cardiovascular: Normal Peripheral Pulses, Regular Rate, Rhythm, No Edema GI/Abdominal Exam: Normal Bowel Sounds, Soft, Other (tenderness over the RUQ and RLQ) Back Exam: Normal Inspection, Full Range of Motion Extremities: Normal Inspection, Normal Range of Motion Neurological: Alert, Oriented, CN II-XII Intact Course - Vital Signs Text/Narrative:: Labs/Ct abd/pelvis result was discussed with patient NS 1 L bolus Zofran 4 mg IV x1 Morphine 4 mg IV x1 Dilaudid 1 mg IV x1 Zosyn 3.375 mg IV x1 Last Recorded V/S: Last Vital Signs Temp 36.6 C 12/26/19 12:50 Pulse 95 12/26/19 12:50 Resp 20 12/26/19 12:50 BP 149/104 H 12/26/19 12:50 Pulse Ox 99 12/26/19 12:50 - Orders/Labs/Meds Orders: Active Orders 24 hr Category Date Time Status CORONAVIRUS COVID-19 GLYNN [MOLEC] Stat Lab 12/26/19 15:30 Received Sodium Chloride 0.9% [Normal Saline] 1,000 ml Med 12/26/19 13:00 Active IV ASDIRECTED Sodium Chloride 0.9% [Normal Saline] 1,000 ml Med 12/26/19 15:30 Active IV ASDIRECTED Sodium Chloride 0.9% [Saline Flush] Med 12/26/19 12:50 Active 10 ml FLUSH ASDIRECTED PRN Saline Lock Insert [OM.PC] Routine Oth 12/26/19 12:50 Ordered Medication Orders Sodium Chloride (Normal Saline) 1,000 mls @ 999 mls/hr IV ASDIRECTED NIRU Last Admin: 12/26/19 13:45 Dose: 999 mls/hr Documented by: ADARSH Sodium Chloride (Normal Saline) 1,000 mls @ 125 mls/hr IV ASDIRECTED NIRU Sodium Chloride (Saline Flush) 10 ml FLUSH ASDIRECTED PRN PRN Reason: Keep Vein Open Last Admin: 12/26/19 13:28 Dose: 10 ml Documented by: ADARSH Labs: Laboratory Tests 12/26/19 12/26/19 12/26/19 Range/Units 13:15 13:15 13:15 WBC 11.8 (4.5-12.0) X10-3/uL RBC 5.72 (4.30-5.75) x10(6)uL Hgb 16.3 (13.5-17.8) g/dL Hct 47.1 (30.0-51.3) % MCV 82.4 (80-96) fL MCH 28.5 (27.7-33.6) pg MCHC 34.6 (32.2-35.4) g/dL RDW 13.5 (11.5-15.5) % Plt Count 213 (125-369) X10(3)uL MPV 8.0 (7.4-10.4) fL Add Manual Diff Yes Neutrophils % (Manual) 90 H (46-82) % Lymphocytes % (Manual) 9 L (13-37) % Monocytes % (Manual) 1 L (4-12) % Sodium 138 (135-145) mmol/L Potassium 3.8 (3.5-5.3) mmol/L Chloride 103 (100-110) mmol/L Carbon Dioxide 23 (21-32) mmol/L BUN 16 (7-18) mg/dL Creatinine 1.6 H (0.70-1.30) mg/dL Est Cr Clr Drug Dosing TNP Estimated GFR (MDRD) 47 L (>60) BUN/Creatinine Ratio 10.0 (9-20) Glucose 129 H (80-116) mg/dL Calcium 9.4 (8.6-10.2) mg/dL Total Bilirubin 0.7 (0.1-1.3) mg/dL AST 20 D (5-25) IU/L ALT 27 D (12-36) U/L Alkaline Phosphatase 93 (56-112) IU/L Total Protein 8.0 (6.0-8.0) g/dL Albumin 4.1 (3.5-5.2) g/dL Globulin 3.9 g/dL Albumin/Globulin Ratio 1.1 Amylase 77 (25-115) U/L Lipase 128 (73-393) U/L Urine Color (YELLOW) Urine Appearance (CLEAR) Urine pH (5.0-6.5) Ur Specific [place] (1.010-1.025) Urine Protein (NEGATIVE) mg/dL Urine Glucose (UA) (NORMAL) mg/dL Urine Ketones (NEGATIVE) mg/dL Urine Occult Blood (NEGATIVE) Urine Nitrite (NEGATIVE) Urine Bilirubin (NEGATIVE) Urine Urobilinogen (NEGATIVE) mg/dL Ur Leukocyte Esterase (NEGATIVE) Urine WBC (0-5) Ur Squamous Epith Cells (NS,R,O) Urine Bacteria (NS) 12/26/19 Range/Units 13:17 WBC (4.5-12.0) X10-3/uL RBC (4.30-5.75) x10(6)uL Hgb (13.5-17.8) g/dL Hct (30.0-51.3) % MCV (80-96) fL MCH (27.7-33.6) pg MCHC (32.2-35.4) g/dL RDW (11.5-15.5) % Plt Count (125-369) X10(3)uL MPV (7.4-10.4) fL Add Manual Diff Neutrophils % (Manual) (46-82) % Lymphocytes % (Manual) (13-37) % Monocytes % (Manual) (4-12) % Sodium (135-145) mmol/L Potassium (3.5-5.3) mmol/L Chloride (100-110) mmol/L Carbon Dioxide (21-32) mmol/L BUN (7-18) mg/dL Creatinine (0.70-1.30) mg/dL Est Cr Clr Drug Dosing Estimated GFR (MDRD) (>60) BUN/Creatinine Ratio (9-20) Glucose (80-116) mg/dL Calcium (8.6-10.2) mg/dL Total Bilirubin (0.1-1.3) mg/dL AST (5-25) IU/L ALT (12-36) U/L Alkaline Phosphatase (56-112) IU/L Total Protein (6.0-8.0) g/dL Albumin (3.5-5.2) g/dL Globulin g/dL Albumin/Globulin Ratio Amylase (25-115) U/L Lipase (73-393) U/L Urine Color Yellow (YELLOW) Urine Appearance Clear (CLEAR) Urine pH 5.0 (5.0-6.5) Ur Specific [place] 1.020 (1.010-1.025) Urine Protein Negative (NEGATIVE) mg/dL Urine Glucose (UA) Normal (NORMAL) mg/dL Urine Ketones Negative (NEGATIVE) mg/dL Urine Occult Blood Negative (NEGATIVE) Urine Nitrite Negative (NEGATIVE) Urine Bilirubin Negative (NEGATIVE) Urine Urobilinogen Normal (NEGATIVE) mg/dL Ur Leukocyte Esterase Negative (NEGATIVE) Urine WBC 0-5 (0-5) Ur Squamous Epith Cells Few H (NS,R,O) Urine Bacteria Few H (NS) Meds: Medications Generic Name Dose Route Start Last Admin Trade Name Freq PRN Reason Stop Dose Admin Sodium Chloride 1,000 mls @ 999 mls/hr 12/26/19 13:00 12/26/19 13:45 Normal Saline IV 999 mls/hr ASDIRECTED NIRU Administration Sodium Chloride 1,000 mls @ 125 mls/hr 12/26/19 15:30 Normal Saline IV ASDIRECTED NIRU Sodium Chloride 10 ml 12/26/19 12:50 12/26/19 13:28 Saline Flush FLUSH 10 ml ASDIRECTED PRN Administration Keep Vein Open Discontinued Medications Generic Name Dose Route Start Last Admin Trade Name Freq PRN Reason Stop Dose Admin Hydromorphone HCl 1 mg 12/26/19 15:07 Dilaudid IVPUSH 12/26/19 15:08 ONETIME ONE Piperacillin Sod/Tazobactam 50 mls @ 100 mls/hr 12/26/19 14:50 Sod 3.375 gm/ Sodium Chloride IV 12/26/19 15:19 NOW STA Morphine Sulfate 4 mg 12/26/19 12:52 12/26/19 13:30 Morphine IVPUSH 12/26/19 12:53 4 mg ONETIME ONE Administration Ondansetron HCl 4 mg 12/26/19 12:52 12/26/19 13:28 Zofran IVPUSH 12/26/19 12:53 4 mg ONETIME ONE Administration Departure - Departure Time of Disposition: 15:30 Disposition: Admitted As Inpatient 64 Condition: Good (abdominal pain) Clinical Impression: Abdominal pain - Discharge Information Referrals: Srinivas Garzon MD [Primary Care Provider] - Sepsis Event Note (ED) - Evaluation Sepsis Screening Result: No Definite Risk - Focused Exam Vital Signs: Vital Signs Temp Pulse Resp BP Pulse Ox 12/26/19 12:50 36.6 C 95 20 149/104 H 99 - My Orders Last 24 Hours: My Active Orders 12/26/19 12:50 Sodium Chloride 0.9% [Saline Flush] 10 ml FLUSH ASDIRECTED PRN Saline Lock Insert [OM.PC] Routine 12/26/19 13:00 Sodium Chloride 0.9% [Normal Saline] 1,000 ml IV ASDIRECTED 12/26/19 15:30 CORONAVIRUS COVID-19 GLYNN [MOLEC] Stat Sodium Chloride 0.9% [Normal Saline] 1,000 ml IV ASDIRECTED - Assessment/Plan Last 24 Hours: My Active Orders 12/26/19 12:50 Sodium Chloride 0.9% [Saline Flush] 10 ml FLUSH ASDIRECTED PRN Saline Lock Insert [OM.PC] Routine 12/26/19 13:00 Sodium Chloride 0.9% [Normal Saline] 1,000 ml IV ASDIRECTED 12/26/19 15:30 CORONAVIRUS COVID-19 GLYNN [MOLEC] Stat Sodium Chloride 0.9% [Normal Saline] 1,000 ml IV ASDIRECTED
[2019-12-26] MEDS ORDERED: HYDROmorphone 2 MG/ML SDV IVPUSH STA (16:39)
[2019-12-26] MEDS ORDERED: traMADol 50 MG Tab PO PRN (16:44)
[2019-12-26] MEDS ORDERED: diphenhydrAMINE 50 MG/ML SDV IVPUSH PRN (17:01)
--- NOTE | 2019-12-26 19:01 | CONS ---
DATE OF CONSULTATION: 12/26/2019 PHYSICIAN REQUESTING CONSULT: Ward Campbell MD. HISTORY: This 44-year-old male presented to the emergency room today with a history of abdominal pain since last night. He was feeling well until approximately 6 p.m. last night when he began having some crampy abdominal pain as well as some nausea. Symptoms persisted through the night and into the morning. He was able to work a little bit this morning, but as the symptoms continued and gradually worsened, he presented to the emergency room. He says he does not feel any abdominal bloating, but does feel some nausea. He has had 3 stools today, although they have been small, the last one was just before he came to the emergency room. He does have chronic right lower quadrant abdominal pain, which developed after previous surgery and this has persisted, but he is also experiencing some cramps today, which are at times quite severe. He has had no difficulty voiding. No shortness of breath. This patient has a history of previous abdominal surgery and has had multiple episodes in the past where he has required admission for small bowel obstruction. Previous episodes he states feel very similar to his current symptoms. Previously, he has been observed sometimes for multiple days and the cramps have always resolved previously. The patient also notes that his stools have been somewhat smaller in size over the last 1 to 2 weeks, but his appetite has been unchanged. To evaluate his symptoms, the patient underwent a CT scan of the abdomen and pelvis. This was interpreted as showing dilation of multiple loops of the mid and distal ileum, although no definite cutoff point was identified. Also around some of these loops is inflammation which is consistent with some mild peritonitis. There is also small amount of fluid noted around this area and even into the pelvis. No other acute abnormalities are noted. His other diagnostic data shows laboratory studies including a serum white blood cell count which was normal at 11.8, hemoglobin is normal. There are no bands, but 90% neutrophils. His creatinine is slightly elevated, but chemistry studies and liver functions are normal as is his urinalysis. PAST MEDICAL HISTORY: Includes a partial right nephrectomy for carcinoma and then this patient also required a hernia repair in the right lower abdomen after that. He has had an appendectomy and he has also had a left upper extremity surgery. He does carry a diagnoses of hypertension and migraine headaches as well as GERD. He has a history of renal stones in the past and on the CT scan stones are still present in the kidneys, but there is no ureteral obstruction noted. CURRENT MEDICATIONS: 1. Topiramate. 2. Amlodipine. 3. Omeprazole. 4. Fluoxetine. ALLERGIES: He has no known drug allergies. REVIEW OF SYSTEMS: The patient has chronic migraine headaches. No chest pain or palpitations. No recent cough, shortness of breath, or fever. He uses the omeprazole to control GERD symptoms. No recent difficulty voiding or hematuria. No extremity swelling or complaints. PHYSICAL EXAMINATION: VITAL SIGNS: Temperature is 36.6, pulse 95, blood pressure is 149/104, and respirations 20 and nonlabored. GENERAL: The patient is alert adult male. He is in no acute distress. He moves easily in the examining room stating that the physical movement does not increase his abdominal pain. HEENT: Head is normocephalic. No scleral icterus. No cervical masses. HEART: Regular without murmur. LUNGS: Clear. Breath sounds are equal. There is no wheezing. No CVA tenderness is noted. ABDOMEN: Soft. There is no distention. I do not feel any abdominal masses. There is moderate tenderness to direct palpation in the right mid and lower abdomen. No guarding is noted. No inguinal masses identified. EXTREMITIES: No extremity swelling. IMPRESSION: 1. Recurrence of small bowel obstruction with inflammatory changes near the bowel, likely partial at this time. 2. Bilateral renal stones without ureteral obstruction. 3. History of hypertension. RECOMMENDATIONS: Advised attempted conservative management. The patient will be started on IV antibiotics because of the inflammation noted on CT scan. I advised IV hydration, n.p.o., and NG suction in an effort to decompress his bowel and try to resolve this without surgical management. The patient does report that he had difficulty with one previous general anesthesia with difficulty intubation and postprocedure transient coma. This history will have to be considered if any anesthesia is required. /[id number] ANNALISE/NATALIIA
[2019-12-26] MEDS: amLODIPine 10 MG Tab PO SCH (20:57)
[2019-12-26] MEDS: Topiramate 50 MG Tab PO SCH (20:58)
[2019-12-26] MEDS: FLUoxetine 20 MG Cap PO SCH (20:58)
[2019-12-26] MEDS ORDERED: Non-Formulary Medication 1 Each (Omeprazole [Omeprazole] 20 MG) PO SCH (21:00)
[2019-12-26] MEDS: HYDROmorphone 2 MG/ML SDV IVPUSH PRN (21:17)
[2019-12-26] MEDS: diphenhydrAMINE 50 MG/ML SDV IVPUSH PRN (21:21)
[2019-12-26] MEDS: Sodium Chloride 0.9% 1,000 ML IV SCH (22:33)
--- NOTE | 2019-12-26 23:20 | HP ---
ADMISSION DATE: 12/26/2019 CHIEF COMPLAINT: Abdominal pain with partial small bowel obstruction. HISTORY OF PRESENT ILLNESS: Colten is a 44-year-old man with history of multiple previous abdominal surgeries including a laparoscopic nephrectomy for renal cancer in 2017. This was partially open and he subsequently developed a hernia for which he had a ventral herniorrhaphy. The patient states he had cramping abdominal pain since about 6 p.m. last evening. At that time, he ate his 's stir ziegler for supper and he has not had anything to eat since that time. He has had at least 4 or 5 previous admissions for small bowel obstruction and he has not had any operations to relieve this. They have resolved with conservative treatment. He came in through the emergency room this evening, was seen by Dr. Gautam, and is admitted to the hospital. Dr. Wilson saw him in consult in the emergency room as well. Colten has not had any fever, chills, sweats, or symptoms of infection. He has not had any nausea or vomiting. He has had abdominal crampy pains, distention. He is not passing any gas, but he states he has had a few liquid stools since yesterday. PAST MEDICAL HISTORY: Laparoscopic nephrectomy 2017. He is status post appendectomy, ORIF of left elbow fracture surgery. He has had endoscopic implantation of a pharyngeal nerve stimulator for obstructive sleep apnea. He has had right elbow fracture surgery repair. He has had shoulder repair on the right, tonsillectomy, the ventral herniorrhaphy as mentioned. He has had low back pain; migraine headaches, on Botox injections; GERD; hypertension; kidney stones, and obesity. He apparently had an episode of respiratory failure with pulmonary edema during his hernia surgery. MEDICATIONS: 1. Fluoxetine 20 mg daily. 2. Topamax 75 mg at bedtime. 3. Amlodipine 10 mg at bedtime. 4. Omeprazole 20 mg at bedtime. ALLERGIES: None known. HABITS: Twenty pack year history of smoking. No cigarettes for the past 5 years. No alcohol. 3+ servings of Mountain Dew per day. FAMILY AND SOCIAL HISTORY: The patient is for the 2nd time for 7 years. He has 3 children ages 11, 4, and 5. His 5-year-old daughter was born with lung problems which precipitated him quitting smoking. FAMILY MEDICAL HISTORY: Noncontributory. REVIEW OF SYSTEMS: GENERAL: No seizure, syncope, or significant weight change. SKIN: Negative for rash. HEENT: No recent changes in hearing or vision. No sore throat or URI. CHEST: No cough or purulent sputum. No symptoms of infection. No chest pain, palpitations. GI: No vomiting, hematochezia. No melena. MUSCULOSKELETAL: No joint inflammation. He does get injections into his left wrist intermittently for arthritis post fracture. PHYSICAL EXAMINATION: GENERAL: He is alert, comfortable, and a good historian. VITAL SIGNS: Blood pressure 149/104, pulse 95 and regular, respirations 20, O2 saturation 99% on room air, temperature 97.9, weight 220 pounds stated. SKIN: Anicteric, warm and dry, without rash. He has parallel vertical incisional scars on his right abdomen that appear well healed. HEENT: Show TMs to be clear. Pupils equal and reactive. Oropharynx is clear. Good dentition. NECK: Supple. Thyroid is severo. LUNGS: Clear to the bases. BACK: Straight, nontender. HEART: Regular without murmur, rub, or gallop. ABDOMEN: Normal bowel sounds. Soft. Mild tenderness over the right lower quadrant. No mass, guarding or rebound. EXTREMITIES: Warm, well perfused. Good dorsalis pedis pulses. No edema. LABORATORY DATA: White count is 11,800, hemoglobin 16.3, MCV 82, platelets 213, 90 segs, 9 lymphocytes, 1 mono. Electrolytes normal. Potassium 3.8, BUN 16, creatinine 1.6. ASSESSMENT: 1. Partial small bowel obstruction, likely secondary to adhesions and similar to several previous episodes. 2. History of robotic and open combination nephrectomy in 2017 for renal cancer with no apparent recurrence. 3. Repair of incisional hernia, right lower quadrant. 4. Obstructive sleep apnea with pharyngeal nerve stimulator in place. 5. Migraines, on Botox injections. 6. Chronic essential hypertension. 7. History of gastroesophageal reflux disease. 8. Hypertension. 9. Kidney stones. 10.Obesity. PLAN: He is admitted to the hospital. We will place an NG tube. Keep him n.p.o. except for his medications. Plan for a short hospital stay if his small- bowel obstruction resolves, and will likely discharge to home when able. /[id number] GILA/NATALIIA
[2019-12-27] MEDS: diphenhydrAMINE 50 MG/ML SDV IVPUSH PRN ×3 (03:23→16:57)
[2019-12-27] MEDS: HYDROmorphone 2 MG/ML SDV IVPUSH PRN ×3 (03:25→16:55)
[2019-12-27] MEDS: Sodium Chloride 0.9% 1,000 ML IV SCH ×3 (05:54→21:44)
--- NOTE | 2019-12-27 06:44 | PCM.PN ---
- General Info Date of Service: 12/27/19 Admission Dx/Problem (Free Text): Small bowel obstruction - Review of Systems General: Reports: Other (some nausea but no vomiting, states feels full). Denies: Chills Pulmonary: Reports: No Symptoms Gastrointestinal: Reports: Abdominal Pain (Cramps continue with little change), Nausea, Other (No BM since admission). Denies: Flatus, Vomiting Genitourinary: Reports: Retention (difficult to void which patient attributes to narcotics (has hx of this)) - Patient Data Vitals - Most Recent: Last Vital Signs Temp 97.6 F 12/27/19 02:22 Pulse 68 12/27/19 02:22 Resp 16 12/27/19 02:22 BP 129/90 12/27/19 02:22 Pulse Ox 98 12/27/19 02:22 Weight - Most Recent: 220 lb I&O - Last 24 Hours: Intake & Output 12/26/19 12/26/19 12/27/19 14:59 22:59 06:59 Intake Total 1853 1050 Balance 1853 1050 Lab Results Last 24 Hours: Laboratory Results - last 24 hr 12/26/19 12/26/19 12/26/19 Range/Units 13:15 13:15 13:15 WBC 11.8 (4.5-12.0) X10-3/uL RBC 5.72 (4.30-5.75) x10(6)uL Hgb 16.3 (13.5-17.8) g/dL Hct 47.1 (30.0-51.3) % MCV 82.4 (80-96) fL MCH 28.5 (27.7-33.6) pg MCHC 34.6 (32.2-35.4) g/dL RDW 13.5 (11.5-15.5) % Plt Count 213 (125-369) X10(3)uL MPV 8.0 (7.4-10.4) fL Add Manual Diff Yes Neutrophils % (Manual) 90 H (46-82) % Lymphocytes % (Manual) 9 L (13-37) % Monocytes % (Manual) 1 L (4-12) % Sodium 138 (135-145) mmol/L Potassium 3.8 (3.5-5.3) mmol/L Chloride 103 (100-110) mmol/L Carbon Dioxide 23 (21-32) mmol/L BUN 16 (7-18) mg/dL Creatinine 1.6 H (0.70-1.30) mg/dL Est Cr Clr Drug Dosing TNP Estimated GFR (MDRD) 47 L (>60) BUN/Creatinine Ratio 10.0 (9-20) Glucose 129 H (80-116) mg/dL Calcium 9.4 (8.6-10.2) mg/dL Magnesium (1.8-2.5) mg/dL Total Bilirubin 0.7 (0.1-1.3) mg/dL AST 20 D (5-25) IU/L ALT 27 D (12-36) U/L Alkaline Phosphatase 93 (56-112) IU/L Total Protein 8.0 (6.0-8.0) g/dL Albumin 4.1 (3.5-5.2) g/dL Globulin 3.9 g/dL Albumin/Globulin Ratio 1.1 Amylase 77 (25-115) U/L Lipase 128 (73-393) U/L Urine Color (YELLOW) Urine Appearance (CLEAR) Urine pH (5.0-6.5) Ur Specific [place] (1.010-1.025) Urine Protein (NEGATIVE) mg/dL Urine Glucose (UA) (NORMAL) mg/dL Urine Ketones (NEGATIVE) mg/dL Urine Occult Blood (NEGATIVE) Urine Nitrite (NEGATIVE) Urine Bilirubin (NEGATIVE) Urine Urobilinogen (NEGATIVE) mg/dL Ur Leukocyte Esterase (NEGATIVE) Urine WBC (0-5) Ur Squamous Epith Cells (NS,R,O) Urine Bacteria (NS) SARS-CoV-2 RNA (GLYNN) (NEGATIVE) 12/26/19 12/26/19 12/27/19 Range/Units 13:17 15:30 06:12 WBC (4.5-12.0) X10-3/uL RBC (4.30-5.75) x10(6)uL Hgb (13.5-17.8) g/dL Hct (30.0-51.3) % MCV (80-96) fL MCH (27.7-33.6) pg MCHC (32.2-35.4) g/dL RDW (11.5-15.5) % Plt Count (125-369) X10(3)uL MPV (7.4-10.4) fL Add Manual Diff Neutrophils % (Manual) (46-82) % Lymphocytes % (Manual) (13-37) % Monocytes % (Manual) (4-12) % Sodium 140 (135-145) mmol/L Potassium 4.3 (3.5-5.3) mmol/L Chloride 106 (100-110) mmol/L Carbon Dioxide 27 (21-32) mmol/L BUN 14 (7-18) mg/dL Creatinine 1.4 H (0.70-1.30) mg/dL Est Cr Clr Drug Dosing 72.37 Estimated GFR (MDRD) 55 L (>60) BUN/Creatinine Ratio 10.0 (9-20) Glucose 98 (80-116) mg/dL Calcium 8.2 L (8.6-10.2) mg/dL Magnesium 1.8 (1.8-2.5) mg/dL Total Bilirubin (0.1-1.3) mg/dL AST (5-25) IU/L ALT (12-36) U/L Alkaline Phosphatase (56-112) IU/L Total Protein (6.0-8.0) g/dL Albumin (3.5-5.2) g/dL Globulin g/dL Albumin/Globulin Ratio Amylase (25-115) U/L Lipase (73-393) U/L Urine Color Yellow (YELLOW) Urine Appearance Clear (CLEAR) Urine pH 5.0 (5.0-6.5) Ur Specific [place] 1.020 (1.010-1.025) Urine Protein Negative (NEGATIVE) mg/dL Urine Glucose (UA) Normal (NORMAL) mg/dL Urine Ketones Negative (NEGATIVE) mg/dL Urine Occult Blood Negative (NEGATIVE) Urine Nitrite Negative (NEGATIVE) Urine Bilirubin Negative (NEGATIVE) Urine Urobilinogen Normal (NEGATIVE) mg/dL Ur Leukocyte Esterase Negative (NEGATIVE) Urine WBC 0-5 (0-5) Ur Squamous Epith Cells Few H (NS,R,O) Urine Bacteria Few H (NS) SARS-CoV-2 RNA (GLYNN) Negative (NEGATIVE) Med Orders - Current: Current Medications Amlodipine Besylate (Norvasc) 10 mg PO BEDTIME NIRU Last Admin: 12/26/19 20:57 Dose: 10 mg Documented by: Diphenhydramine HCl (Benadryl) 50 mg IVPUSH Q3H PRN PRN Reason: Itching Last Admin: 12/27/19 03:23 Dose: 50 mg Documented by: Fluoxetine HCl (Prozac) 20 mg PO BEDTIME NIRU Last Admin: 12/26/19 20:58 Dose: 20 mg Documented by: Hydromorphone HCl (Dilaudid) 2 mg IVPUSH Q6H PRN PRN Reason: Pain Last Admin: 12/27/19 03:25 Dose: 2 mg Documented by: Sodium Chloride (Normal Saline) 1,000 mls @ 999 mls/hr IV ASDIRECTED NIRU Last Admin: 12/26/19 13:45 Dose: 999 mls/hr Documented by: Sodium Chloride (Normal Saline) 1,000 mls @ 125 mls/hr IV ASDIRECTED NIRU Last Admin: 12/27/19 05:54 Dose: 125 mls/hr Documented by: Pantoprazole Sodium (Protonix Iv) 40 mg IVPUSH Q24H [facility] Sodium Chloride (Saline Flush) 10 ml FLUSH ASDIRECTED PRN PRN Reason: Keep Vein Open Last Admin: 12/26/19 13:28 Dose: 10 ml Documented by: Topiramate (Topamax) 75 mg PO BEDTIME NIRU Last Admin: 12/26/19 20:58 Dose: 75 mg Documented by: Tramadol HCl (Ultram) 50 mg PO Q6H PRN PRN Reason: Pain Discontinued Medications Diphenhydramine HCl (Benadryl) 50 mg IVPUSH Q4H PRN PRN Reason: Itching Last Admin: 12/26/19 17:44 Dose: 50 mg Documented by: Hydromorphone HCl (Dilaudid) 1 mg IVPUSH ONETIME ONE Stop: 12/26/19 15:08 Last Admin: 12/26/19 15:30 Dose: 1 mg Documented by: Hydromorphone HCl (Dilaudid) 1 mg IVPUSH NOW STA Stop: 12/26/19 16:40 Last Admin: 12/26/19 16:43 Dose: 1 mg Documented by: Piperacillin Sod/Tazobactam (Sod 3.375 gm/ Sodium Chloride) 50 mls @ 100 mls/hr IV NOW STA Stop: 12/26/19 15:19 Last Admin: 12/26/19 15:31 Dose: 100 mls/hr Documented by: Morphine Sulfate (Morphine) 4 mg IVPUSH ONETIME ONE Stop: 12/26/19 12:53 Last Admin: 12/26/19 13:30 Dose: 4 mg Documented by: Non-Formulary Medication (Omeprazole [Omeprazole]) 20 mg PO BEDTIME NIRU Ondansetron HCl (Zofran) 4 mg IVPUSH ONETIME ONE Stop: 12/26/19 12:53 Last Admin: 12/26/19 13:28 Dose: 4 mg Documented by: Piperacillin Sod/Tazobactam Sod (Zosyn) Confirm Administered Dose 3.375 gm .ROUTE .STK-MED ONE Stop: 12/26/19 20:49 Last Admin: 12/26/19 22:05 Dose: Not Given Documented by: - Exam General: Alert, Oriented Lungs: Normal Respiratory Effort GI/Abdominal Exam: Soft, No Distention, No Mass, Tender (on right side with little change from last night) Sepsis Event Note - Evaluation Sepsis Screening Result: No Definite Risk - Focused Exam Vital Signs: Vital Signs Temp Pulse Resp BP BP Pulse Ox 12/27/19 02:22 97.6 F 68 16 129/90 98 12/26/19 20:57 139/92 H 12/26/19 20:00 98.1 F 85 16 139/92 H 97 - Problem List Review Problem List Initiated/Reviewed/Updated: Yes - My Orders Last 24 Hours: My Active Orders 12/27/19 06:39 NG [Nasogastric Orogastric Tube Insertion] [OM.PC] Routine - Assessment Assessment:: Small bowel obstruction, no apparent improvement during the night - Plan Plan:: Will place NG to see if this helps relieve cramps and nausea
[2019-12-27] MEDS ORDERED: Lidocaine 2% HCl 6 ML JEL.PF.APP ONE ×2 (06:59→07:00)
[2019-12-27] MEDS ORDERED: SUMAtriptan 6 MG/0.5 ML SDV SUBCUT ONE (08:15)
[2019-12-27] MEDS: Pantoprazole 40 MG Vial IVPUSH SCH (10:41)
--- NOTE | 2019-12-27 12:23 | PN ---
DATE SEEN: 12/27/2019 HISTORY: Colten is a 44-year-old man who has a history of recurrent small bowel obstruction since abdominal surgeries back in 2017 for removal of a kidney for renal carcinoma. Colten developed symptoms 2 days ago. He came into the emergency room last night and was admitted with small-bowel obstruction. An NG tube was placed and he is n.p.o. Overnight, he has essentially remained unchanged. He is still having abdominal cramping, bloating, distention. The NG tube is in place and functioning, and he reports passing no gas. PHYSICAL EXAMINATION: GENERAL: He is alert and currently fairly comfortable while lying still. He does complain of a migraine headache, however. VITAL SIGNS: Blood pressure 129/90, pulse 60 and regular, respirations 16, O2 saturation 98% on room air, temperature 97.6. Weight 220 pounds. SKIN: Shows no rash. LUNGS: Clear. HEART: Regular. ABDOMEN: Has active bowel sounds with slight distention and tympany. EXTREMITIES: No edema. ASSESSMENT: 1. Small bowel obstruction. 2. Recurrent small-bowel obstructions from intraabdominal adhesions. 3. Remote history of renal carcinoma removed with no evidence of recurrence. 4. Migraine headaches. 5. Hypertension. 6. Gastroesophageal reflux disease. PLAN: 1. Continue the NG and n.p.o. status. 2. We will continue current medications and add Imitrex for his migraine. Anticipate discharge to home again if bowel function returns adequately. /[id number] GILA/NATALIIA
[2019-12-27] MEDS ORDERED: SUMAtriptan 50 MG Tab PO PRN (14:15)
[2019-12-27] MEDS: FLUoxetine 20 MG Cap PO SCH (21:35)
[2019-12-27] MEDS: Topiramate 50 MG Tab PO SCH (21:35)
[2019-12-27] MEDS: amLODIPine 10 MG Tab PO SCH (21:35)
[2019-12-28] MEDS: diphenhydrAMINE 50 MG/ML SDV IVPUSH PRN ×3 (02:15→13:34)
[2019-12-28] MEDS: HYDROmorphone 2 MG/ML SDV IVPUSH PRN ×2 (02:16→08:21)
[2019-12-28] MEDS: Sodium Chloride 0.9% 1,000 ML IV SCH ×2 (05:34→13:33)
--- NOTE | 2019-12-28 08:35 | PCM.SURGPN ---
- General Info Date of Service: 12/28/19 - Review of Systems Pulmonary: Reports: No Symptoms Cardiovascular: Reports: No Symptoms Gastrointestinal: Reports: Flatus, Other (abdominal cramps still present but less painful, beginning to pass flatus) Genitourinary: Reports: Other (now voiding well) - Patient Data Vitals - Most Recent: Last Vital Signs Temp 97.8 F 12/27/19 23:30 Pulse 82 12/27/19 23:30 Resp 18 12/27/19 23:30 BP 147/87 H 12/27/19 23:30 Pulse Ox 96 12/27/19 23:30 Weight - Most Recent: 220 lb I&O - Last 24 Hours: Intake & Output 12/27/19 12/28/19 12/28/19 22:59 06:59 14:59 Intake Total 875 998 Output Total 50 30 Balance 825 968 Med Orders - Current: Current Medications Amlodipine Besylate (Norvasc) 10 mg PO BEDTIME [facility] Last Admin: 12/27/19 21:35 Dose: 10 mg Documented by: Diphenhydramine HCl (Benadryl) 50 mg IVPUSH Q3H PRN PRN Reason: Itching Last Admin: 12/28/19 08:21 Dose: 50 mg Documented by: Fluoxetine HCl (Prozac) 20 mg PO BEDTIME [facility] Last Admin: 12/27/19 21:35 Dose: 20 mg Documented by: Hydromorphone HCl (Dilaudid) 2 mg IVPUSH Q6H PRN PRN Reason: Pain Last Admin: 12/28/19 08:21 Dose: 2 mg Documented by: Sodium Chloride (Normal Saline) 1,000 mls @ 999 mls/hr IV ASDIRECTED [facility] Last Admin: 12/26/19 13:45 Dose: 999 mls/hr Documented by: Sodium Chloride (Normal Saline) 1,000 mls @ 125 mls/hr IV ASDIRECTED [facility] Last Admin: 12/28/19 05:34 Dose: 125 mls/hr Documented by: Pantoprazole Sodium (Protonix Iv) 40 mg IVPUSH Q24H [facility] Last Admin: 12/27/19 10:41 Dose: 40 mg Documented by: Sodium Chloride (Saline Flush) 10 ml FLUSH ASDIRECTED PRN PRN Reason: Keep Vein Open Last Admin: 12/26/19 13:28 Dose: 10 ml Documented by: Sumatriptan Succinate (Imitrex) 50 mg PO Q2H PRN PRN Reason: migraine Topiramate (Topamax) 75 mg PO BEDTIME [facility] Last Admin: 12/27/19 21:35 Dose: 75 mg Documented by: Tramadol HCl (Ultram) 50 mg PO Q6H PRN PRN Reason: Pain Discontinued Medications Diphenhydramine HCl (Benadryl) 50 mg IVPUSH Q4H PRN PRN Reason: Itching Last Admin: 12/26/19 17:44 Dose: 50 mg Documented by: Hydromorphone HCl (Dilaudid) 1 mg IVPUSH ONETIME ONE Stop: 12/26/19 15:08 Last Admin: 12/26/19 15:30 Dose: 1 mg Documented by: Hydromorphone HCl (Dilaudid) 1 mg IVPUSH NOW STA Stop: 12/26/19 16:40 Last Admin: 12/26/19 16:43 Dose: 1 mg Documented by: Piperacillin Sod/Tazobactam (Sod 3.375 gm/ Sodium Chloride) 50 mls @ 100 mls/hr IV NOW STA Stop: 12/26/19 15:19 Last Admin: 12/26/19 15:31 Dose: 100 mls/hr Documented by: Lidocaine HCl (Glydo) Confirm Administered Dose 6 ml .ROUTE .STK-MED ONE Stop: 12/27/19 07:00 Last Admin: 12/27/19 07:49 Dose: Not Given Documented by: Lidocaine HCl (Glydo) 6 ml .XX ONETIME ONE Stop: 12/27/19 07:01 Last Admin: 12/27/19 07:00 Dose: 6 ml Documented by: Morphine Sulfate (Morphine) 4 mg IVPUSH ONETIME ONE Stop: 12/26/19 12:53 Last Admin: 12/26/19 13:30 Dose: 4 mg Documented by: Non-Formulary Medication (Omeprazole [Omeprazole]) 20 mg PO BEDTIME [facility] Ondansetron HCl (Zofran) 4 mg IVPUSH ONETIME ONE Stop: 12/26/19 12:53 Last Admin: 12/26/19 13:28 Dose: 4 mg Documented by: Piperacillin Sod/Tazobactam Sod (Zosyn) Confirm Administered Dose 3.375 gm .ROUTE .STK-MED ONE Stop: 12/26/19 20:49 Last Admin: 12/26/19 22:05 Dose: Not Given Documented by: Sumatriptan Succinate (Imitrex) 6 mg SUBCUT ONETIME ONE Stop: 12/27/19 08:16 Last Admin: 12/27/19 08:54 Dose: 6 mg Documented by: - Exam General: Alert, Oriented Lungs: Normal Respiratory Effort GI/Abdominal Exam: Soft, No Mass, Tender (remains mildly tender right side and lower abdomen, no guarding) Sepsis Event Note - Evaluation Sepsis Screening Result: No Definite Risk - Focused Exam Vital Signs: Vital Signs Temp Pulse Resp BP BP Pulse Ox 12/27/19 23:30 97.8 F 82 18 147/87 H 96 12/27/19 21:35 142/90 H - Problem List Review Problem List Initiated/Reviewed/Updated: Yes - My Orders Last 24 Hours: Active Orders 24 hr Category Date Time Status Clear Liquid Diet [DIET] Diet 12/28/19 Breakfast Ordered Pantoprazole [ProTONIX IV] Med 12/27/19 10:00 Active 40 mg IVPUSH Q24H SUMAtriptan [Imitrex] Med 12/27/19 14:15 Active 50 mg PO Q2H PRN NG [Nasogastric Orogastric Tube Removal] [OM.PC] Oth 12/28/19 08:31 Ordered Routine Medication Orders Amlodipine Besylate (Norvasc) 10 mg PO BEDTIME [facility] Last Admin: 12/27/19 21:35 Dose: 10 mg Documented by: Admin: 12/26/19 20:57 Dose: 10 mg Documented by: JOSE Diphenhydramine HCl (Benadryl) 50 mg IVPUSH Q3H PRN PRN Reason: Itching Last Admin: 12/28/19 08:21 Dose: 50 mg Documented by: Admin: 12/28/19 02:15 Dose: 50 mg Documented by: Admin: 12/27/19 16:57 Dose: 50 mg Documented by: Admin: 12/27/19 10:41 Dose: 50 mg Documented by: Admin: 12/27/19 03:23 Dose: 50 mg Documented by: Admin: 12/26/19 21:21 Dose: 50 mg Documented by: JOSE Fluoxetine HCl (Prozac) 20 mg PO BEDTIME [facility] Last Admin: 12/27/19 21:35 Dose: 20 mg Documented by: Admin: 12/26/19 20:58 Dose: 20 mg Documented by: JOSE Hydromorphone HCl (Dilaudid) 2 mg IVPUSH Q6H PRN PRN Reason: Pain Last Admin: 12/28/19 08:21 Dose: 2 mg Documented by: Admin: 12/28/19 02:16 Dose: 2 mg Documented by: Admin: 12/27/19 16:55 Dose: 2 mg Documented by: Admin: 12/27/19 10:37 Dose: 2 mg Documented by: Admin: 12/27/19 03:25 Dose: 2 mg Documented by: Admin: 12/26/19 21:17 Dose: 2 mg Documented by: JOSE Sodium Chloride (Normal Saline) 1,000 mls @ 999 mls/hr IV ASDIRECTED [facility] Last Admin: 12/26/19 13:45 Dose: 999 mls/hr Documented by: ADARSH Sodium Chloride (Normal Saline) 1,000 mls @ 125 mls/hr IV ASDIRECTED [facility] Last Admin: 12/28/19 05:34 Dose: 125 mls/hr Documented by: Infusion: 12/28/19 05:34 Dose: 125 mls/hr Documented by: Admin: 12/27/19 21:44 Dose: 125 mls/hr Documented by: Infusion: 12/27/19 21:44 Dose: 125 mls/hr Documented by: Admin: 12/27/19 14:06 Dose: 125 mls/hr Documented by: Infusion: 12/27/19 13:54 Dose: 125 mls/hr Documented by: Admin: 12/27/19 05:54 Dose: 125 mls/hr Documented by: Infusion: 12/27/19 05:54 Dose: 125 mls/hr Documented by: Admin: 12/26/19 22:33 Dose: 125 mls/hr Documented by: JOSE Pantoprazole Sodium (Protonix Iv) 40 mg IVPUSH Q24H [facility] Last Admin: 12/27/19 10:41 Dose: 40 mg Documented by: DAVID Sodium Chloride (Saline Flush) 10 ml FLUSH ASDIRECTED PRN PRN Reason: Keep Vein Open Last Admin: 12/26/19 13:28 Dose: 10 ml Documented by: ADARSH Sumatriptan Succinate (Imitrex) 50 mg PO Q2H PRN PRN Reason: migraine Topiramate (Topamax) 75 mg PO BEDTIME [facility] Last Admin: 12/27/19 21:35 Dose: 75 mg Documented by: Admin: 12/26/19 20:58 Dose: 75 mg Documented by: JOSE Tramadol HCl (Ultram) 50 mg PO Q6H PRN PRN Reason: Pain - Assessment Assessment (Free Text/Narrative):: Small bowel obstruction improving - Plan Plan (Free Text/Narrative):: Will DC NG Begin Clear liquids PO
[2019-12-28] MEDS ORDERED: Ketorolac 30 MG/ML SDV IVPUSH PRN (10:08)
[2019-12-28] MEDS ORDERED: Dexamethasone 4 MG/ML SDV IVPUSH ONE (10:09)
[2019-12-28] MEDS: Acetaminophen 500 MG Tab PO SCH ×2 (10:54→17:18)
[2019-12-28] MEDS: Pantoprazole 40 MG Vial IVPUSH SCH (10:54)
--- NOTE | 2019-12-28 14:32 | PCM.PN ---
- General Info Date of Service: 12/28/19 Subjective Update: RUBINA was pulled this morning and started on clear liquids, rates pain at 5/10, had Dilaudid at 8 am and started itching about 9 am, was given Benadryl 50 mg which did not help. States he usually has itching with any narcotics but usually takes Benadryl and resolves. He is itching his back, hands, arms and legs. He had a dose of Zosyn in ER but no further antibiotics on the floor. - Patient Data Vitals - Most Recent: Last Vital Signs Temp 97.9 F 12/28/19 08:00 Pulse 95 12/28/19 08:00 Resp 16 12/28/19 08:00 BP 139/96 H 12/28/19 08:00 Pulse Ox 99 12/28/19 08:00 Weight - Most Recent: 220 lb I&O - Last 24 Hours: Intake & Output 12/27/19 12/28/19 12/28/19 22:59 06:59 14:59 Intake Total 831 803 5568 Output Total 50 30 Balance 868 053 5981 Med Orders - Current: Current Medications Acetaminophen (Tylenol Extra Strength) 1,000 mg PO Q8H [facility] Last Admin: 12/28/19 10:54 Dose: 1,000 mg Documented by: Amlodipine Besylate (Norvasc) 10 mg PO BEDTIME [facility] Last Admin: 12/27/19 21:35 Dose: 10 mg Documented by: Diphenhydramine HCl (Benadryl) 50 mg IVPUSH Q3H PRN PRN Reason: Itching Last Admin: 12/28/19 13:34 Dose: 50 mg Documented by: Fluoxetine HCl (Prozac) 20 mg PO BEDTIME [facility] Last Admin: 12/27/19 21:35 Dose: 20 mg Documented by: Sodium Chloride (Normal Saline) 1,000 mls @ 999 mls/hr IV ASDIRECTED [facility] Last Admin: 12/26/19 13:45 Dose: 999 mls/hr Documented by: Sodium Chloride (Normal Saline) 1,000 mls @ 125 mls/hr IV ASDIRECTED [facility] Last Admin: 12/28/19 13:33 Dose: 125 mls/hr Documented by: Ketorolac Tromethamine (Toradol) 30 mg IVPUSH Q6H PRN PRN Reason: Pain Stop: 01/02/20 10:08 Pantoprazole Sodium (Protonix Iv) 40 mg IVPUSH Q24H [facility] Last Admin: 12/28/19 10:54 Dose: 40 mg Documented by: Sodium Chloride (Saline Flush) 10 ml FLUSH ASDIRECTED PRN PRN Reason: Keep Vein Open Last Admin: 12/26/19 13:28 Dose: 10 ml Documented by: Sumatriptan Succinate (Imitrex) 50 mg PO Q2H PRN PRN Reason: migraine Topiramate (Topamax) 75 mg PO BEDTIME [facility] Last Admin: 12/27/19 21:35 Dose: 75 mg Documented by: Tramadol HCl (Ultram) 50 mg PO Q6H PRN PRN Reason: Pain Discontinued Medications Dexamethasone (Decadron) 6 mg IVPUSH ONETIME ONE Stop: 12/28/19 10:10 Last Admin: 12/28/19 10:53 Dose: 6 mg Documented by: Diphenhydramine HCl (Benadryl) 50 mg IVPUSH Q4H PRN PRN Reason: Itching Last Admin: 12/26/19 17:44 Dose: 50 mg Documented by: Hydromorphone HCl (Dilaudid) 1 mg IVPUSH ONETIME ONE Stop: 12/26/19 15:08 Last Admin: 12/26/19 15:30 Dose: 1 mg Documented by: Hydromorphone HCl (Dilaudid) 1 mg IVPUSH NOW STA Stop: 12/26/19 16:40 Last Admin: 12/26/19 16:43 Dose: 1 mg Documented by: Hydromorphone HCl (Dilaudid) 2 mg IVPUSH Q6H PRN PRN Reason: Pain Last Admin: 12/28/19 08:21 Dose: 2 mg Documented by: Piperacillin Sod/Tazobactam (Sod 3.375 gm/ Sodium Chloride) 50 mls @ 100 mls/hr IV NOW STA Stop: 12/26/19 15:19 Last Admin: 12/26/19 15:31 Dose: 100 mls/hr Documented by: Lidocaine HCl (Glydo) Confirm Administered Dose 6 ml .ROUTE .STK-MED ONE Stop: 12/27/19 07:00 Last Admin: 12/27/19 07:49 Dose: Not Given Documented by: Lidocaine HCl (Glydo) 6 ml .XX ONETIME ONE Stop: 12/27/19 07:01 Last Admin: 12/27/19 07:00 Dose: 6 ml Documented by: Morphine Sulfate (Morphine) 4 mg IVPUSH ONETIME ONE Stop: 12/26/19 12:53 Last Admin: 12/26/19 13:30 Dose: 4 mg Documented by: Non-Formulary Medication (Omeprazole [Omeprazole]) 20 mg PO BEDTIME [facility] Ondansetron HCl (Zofran) 4 mg IVPUSH ONETIME ONE Stop: 12/26/19 12:53 Last Admin: 12/26/19 13:28 Dose: 4 mg Documented by: Piperacillin Sod/Tazobactam Sod (Zosyn) Confirm Administered Dose 3.375 gm .ROUTE .STK-MED ONE Stop: 12/26/19 20:49 Last Admin: 12/26/19 22:05 Dose: Not Given Documented by: Sumatriptan Succinate (Imitrex) 6 mg SUBCUT ONETIME ONE Stop: 12/27/19 08:16 Last Admin: 12/27/19 08:54 Dose: 6 mg Documented by: - Exam General: Alert, Oriented, Cooperative, No Acute Distress Lungs: Clear to Auscultation, Normal Respiratory Effort Cardiovascular: Regular Rate, Regular Rhythm GI/Abdominal Exam: Soft, No Distention, Tender (mild diffuse), Abnormal Bowel Sounds (hypoactive x4) Skin: Other (Excoriations from itching on upper back, forearms, thighs) Sepsis Event Note - Evaluation Sepsis Screening Result: No Definite Risk - Focused Exam Vital Signs: Vital Signs Temp Pulse Resp BP Pulse Ox 12/28/19 08:00 97.9 F 95 16 139/96 H 99 - Problem List & Annotations (1) Small bowel obstruction SNOMED Code(s): 731015667 Code(s): K56.609 - UNSP INTESTNL OBST, UNSP TO PARTIAL VERSUS COMPLETE OBST Status: Acute Current Visit: No (2) Hypertension SNOMED Code(s): 30291136 Code(s): I10 - ESSENTIAL (PRIMARY) HYPERTENSION Status: Chronic Current Visit: No Qualifiers: Hypertension type: essential hypertension Qualified Code(s): I10 - Essential (primary) hypertension (3) Allergic reaction SNOMED Code(s): 565407746 Code(s): T78.40XA - ALLERGY, UNSPECIFIED, INITIAL ENCOUNTER Status: Acute Current Visit: Yes Qualifiers: Encounter type: initial encounter Qualified Code(s): T78.40XA - Allergy, unspecified, initial encounter - Problem List Review Problem List Initiated/Reviewed/Updated: Yes - My Orders Last 24 Hours: My Active Orders 12/28/19 10:08 Ketorolac [Toradol] 30 mg IVPUSH Q6H PRN 12/28/19 10:15 Acetaminophen [Tylenol Extra Strength] 1,000 mg PO Q8H - Plan Plan:: 1. SBO: NG removed, diet advanced to clears. Dilaudid discontinued due to itching which occurred within an hour of last dose. Toradol 30 mg IV q6h for pain. May add Tylenol oral if tolerating diet. Dr Katie baires. 2. Allergic reaction: Dexamethasone 6 mg IV x 1, continue Benadryl 50 mg IV as needed itching/allergic reaction.
[2019-12-28] MEDS: Topiramate 50 MG Tab PO SCH (21:26)
[2019-12-28] MEDS: FLUoxetine 20 MG Cap PO SCH (21:27)
[2019-12-28] MEDS: amLODIPine 10 MG Tab PO SCH (21:27)
[2019-12-29] MEDS: Acetaminophen 500 MG Tab PO SCH ×2 (03:02→10:16)
--- NOTE | 2019-12-29 09:26 | PCM.SURGPN ---
- General Info Date of Service: 12/29/19 Functional Status: Reports: Pain Controlled (no more abdominal) - Review of Systems Pulmonary: Reports: No Symptoms Gastrointestinal: Reports: Other (passing stool and gas) Genitourinary: Reports: No Symptoms - Patient Data Vitals - Most Recent: Last Vital Signs Temp 97.6 F 12/28/19 20:00 Pulse 98 12/28/19 20:00 Resp 16 12/28/19 20:00 BP 114/74 12/28/19 21:27 Pulse Ox 98 12/28/19 20:00 Weight - Most Recent: 220 lb I&O - Last 24 Hours: Intake & Output 12/28/19 12/29/19 12/29/19 22:59 06:59 14:59 Intake Total 1180 635 Balance 1180 635 Med Orders - Current: Current Medications Acetaminophen (Tylenol Extra Strength) 1,000 mg PO Q8H [facility] Last Admin: 12/29/19 03:02 Dose: 1,000 mg Documented by: Amlodipine Besylate (Norvasc) 10 mg PO BEDTIME [facility] Last Admin: 12/28/19 21:27 Dose: 10 mg Documented by: Diphenhydramine HCl (Benadryl) 50 mg IVPUSH Q3H PRN PRN Reason: Itching Last Admin: 12/28/19 13:34 Dose: 50 mg Documented by: Fluoxetine HCl (Prozac) 20 mg PO BEDTIME [facility] Last Admin: 12/28/19 21:27 Dose: 20 mg Documented by: Sodium Chloride (Normal Saline) 1,000 mls @ 999 mls/hr IV ASDIRECTED [facility] Last Admin: 12/26/19 13:45 Dose: 999 mls/hr Documented by: Sodium Chloride (Normal Saline) 1,000 mls @ 75 mls/hr IV ASDIRECTED [facility] Last Infusion: 12/28/19 15:35 Dose: 75 mls/hr Documented by: Ketorolac Tromethamine (Toradol) 30 mg IVPUSH Q6H PRN PRN Reason: Pain Stop: 01/02/20 10:08 Last Admin: 12/28/19 17:15 Dose: 30 mg Documented by: Pantoprazole Sodium (Protonix Iv) 40 mg IVPUSH Q24H [facility] Last Admin: 12/28/19 10:54 Dose: 40 mg Documented by: Sodium Chloride (Saline Flush) 10 ml FLUSH ASDIRECTED PRN PRN Reason: Keep Vein Open Last Admin: 12/26/19 13:28 Dose: 10 ml Documented by: Sumatriptan Succinate (Imitrex) 50 mg PO Q2H PRN PRN Reason: migraine Topiramate (Topamax) 75 mg PO BEDTIME [facility] Last Admin: 12/28/19 21:26 Dose: 75 mg Documented by: Tramadol HCl (Ultram) 50 mg PO Q6H PRN PRN Reason: Pain Discontinued Medications Dexamethasone (Decadron) 6 mg IVPUSH ONETIME ONE Stop: 12/28/19 10:10 Last Admin: 12/28/19 10:53 Dose: 6 mg Documented by: Diphenhydramine HCl (Benadryl) 50 mg IVPUSH Q4H PRN PRN Reason: Itching Last Admin: 12/26/19 17:44 Dose: 50 mg Documented by: Hydromorphone HCl (Dilaudid) 1 mg IVPUSH ONETIME ONE Stop: 12/26/19 15:08 Last Admin: 12/26/19 15:30 Dose: 1 mg Documented by: Hydromorphone HCl (Dilaudid) 1 mg IVPUSH NOW STA Stop: 12/26/19 16:40 Last Admin: 12/26/19 16:43 Dose: 1 mg Documented by: Hydromorphone HCl (Dilaudid) 2 mg IVPUSH Q6H PRN PRN Reason: Pain Last Admin: 12/28/19 08:21 Dose: 2 mg Documented by: Piperacillin Sod/Tazobactam (Sod 3.375 gm/ Sodium Chloride) 50 mls @ 100 mls/hr IV NOW STA Stop: 12/26/19 15:19 Last Admin: 12/26/19 15:31 Dose: 100 mls/hr Documented by: Lidocaine HCl (Glydo) Confirm Administered Dose 6 ml .ROUTE .STK-MED ONE Stop: 12/27/19 07:00 Last Admin: 12/27/19 07:49 Dose: Not Given Documented by: Lidocaine HCl (Glydo) 6 ml .XX ONETIME ONE Stop: 12/27/19 07:01 Last Admin: 12/27/19 07:00 Dose: 6 ml Documented by: Morphine Sulfate (Morphine) 4 mg IVPUSH ONETIME ONE Stop: 12/26/19 12:53 Last Admin: 12/26/19 13:30 Dose: 4 mg Documented by: Non-Formulary Medication (Omeprazole [Omeprazole]) 20 mg PO BEDTIME [facility] Ondansetron HCl (Zofran) 4 mg IVPUSH ONETIME ONE Stop: 12/26/19 12:53 Last Admin: 12/26/19 13:28 Dose: 4 mg Documented by: Piperacillin Sod/Tazobactam Sod (Zosyn) Confirm Administered Dose 3.375 gm .ROUTE .STK-MED ONE Stop: 12/26/19 20:49 Last Admin: 12/26/19 22:05 Dose: Not Given Documented by: Sumatriptan Succinate (Imitrex) 6 mg SUBCUT ONETIME ONE Stop: 12/27/19 08:16 Last Admin: 12/27/19 08:54 Dose: 6 mg Documented by: Sepsis Event Note - Evaluation Sepsis Screening Result: No Definite Risk - Focused Exam Vital Signs: Vital Signs BP 12/28/19 21:27 114/74 - Problem List Review Problem List Initiated/Reviewed/Updated: Yes - My Orders Last 24 Hours: Active Orders 24 hr Category Date Time Status Full Liquid Diet [DIET] Diet 12/28/19 Dinner Active Acetaminophen [Tylenol Extra Strength] Med 12/28/19 10:15 Active 1,000 mg PO Q8H Ketorolac [Toradol] Med 12/28/19 10:08 Active 30 mg IVPUSH Q6H PRN NG [Nasogastric Orogastric Tube Removal] [OM.PC] Oth 12/28/19 08:31 Ordered Routine Medication Orders Acetaminophen (Tylenol Extra Strength) 1,000 mg PO Q8H [facility] Last Admin: 12/29/19 03:02 Dose: 1,000 mg Documented by: Admin: 12/28/19 17:18 Dose: 1,000 mg Documented by: Admin: 12/28/19 10:54 Dose: 1,000 mg Documented by: ABDIEL Amlodipine Besylate (Norvasc) 10 mg PO BEDTIME [facility] Last Admin: 12/28/19 21:27 Dose: 10 mg Documented by: Admin: 12/27/19 21:35 Dose: 10 mg Documented by: Admin: 12/26/19 20:57 Dose: 10 mg Documented by: JOSE Diphenhydramine HCl (Benadryl) 50 mg IVPUSH Q3H PRN PRN Reason: Itching Last Admin: 12/28/19 13:34 Dose: 50 mg Documented by: Admin: 12/28/19 08:21 Dose: 50 mg Documented by: Admin: 12/28/19 02:15 Dose: 50 mg Documented by: Admin: 12/27/19 16:57 Dose: 50 mg Documented by: Admin: 12/27/19 10:41 Dose: 50 mg Documented by: Admin: 12/27/19 03:23 Dose: 50 mg Documented by: Admin: 12/26/19 21:21 Dose: 50 mg Documented by: JOSE Fluoxetine HCl (Prozac) 20 mg PO BEDTIME [facility] Last Admin: 12/28/19 21:27 Dose: 20 mg Documented by: Admin: 12/27/19 21:35 Dose: 20 mg Documented by: Admin: 12/26/19 20:58 Dose: 20 mg Documented by: JOSE Sodium Chloride (Normal Saline) 1,000 mls @ 999 mls/hr IV ASDIRECTED [facility] Last Admin: 12/26/19 13:45 Dose: 999 mls/hr Documented by: ADARSH Sodium Chloride (Normal Saline) 1,000 mls @ 75 mls/hr IV ASDIRECTED [facility] Last Infusion: 12/28/19 15:35 Dose: 75 mls/hr Documented by: Admin: 12/28/19 13:33 Dose: 125 mls/hr Documented by: Infusion: 12/28/19 13:33 Dose: 125 mls/hr Documented by: Admin: 12/28/19 05:34 Dose: 125 mls/hr Documented by: Infusion: 12/28/19 05:34 Dose: 125 mls/hr Documented by: Admin: 12/27/19 21:44 Dose: 125 mls/hr Documented by: Infusion: 12/27/19 21:44 Dose: 125 mls/hr Documented by: Admin: 12/27/19 14:06 Dose: 125 mls/hr Documented by: Infusion: 12/27/19 13:54 Dose: 125 mls/hr Documented by: Admin: 12/27/19 05:54 Dose: 125 mls/hr Documented by: Infusion: 12/27/19 05:54 Dose: 125 mls/hr Documented by: Admin: 12/26/19 22:33 Dose: 125 mls/hr Documented by: JOSE Ketorolac Tromethamine (Toradol) 30 mg IVPUSH Q6H PRN PRN Reason: Pain Stop: 01/02/20 10:08 Last Admin: 12/28/19 17:15 Dose: 30 mg Documented by: ABDIEL Pantoprazole Sodium (Protonix Iv) 40 mg IVPUSH Q24H [facility] Last Admin: 12/28/19 10:54 Dose: 40 mg Documented by: Admin: 12/27/19 10:41 Dose: 40 mg Documented by: DAVID Sodium Chloride (Saline Flush) 10 ml FLUSH ASDIRECTED PRN PRN Reason: Keep Vein Open Last Admin: 12/26/19 13:28 Dose: 10 ml Documented by: ADARSH Sumatriptan Succinate (Imitrex) 50 mg PO Q2H PRN PRN Reason: migraine Topiramate (Topamax) 75 mg PO BEDTIME [facility] Last Admin: 12/28/19 21:26 Dose: 75 mg Documented by: Admin: 12/27/19 21:35 Dose: 75 mg Documented by: Admin: 12/26/19 20:58 Dose: 75 mg Documented by: JOSE Tramadol HCl (Ultram) 50 mg PO Q6H PRN PRN Reason: Pain - Assessment Assessment (Free Text/Narrative):: patient doing well - Plan Plan (Free Text/Narrative):: Discharge Soft diet until bowels working well follow up with PSW in 1 week
--- NOTE | 2019-12-29 09:26 | PCM.DCSUM1 ---
Discharge Summary - Hospital Course HPI Initial Comments: Colten present to ER on 12/25 after 1 day of abdominal pain, distention and loose stools. History of extensive abdominal surgery in 2017 for renal cancer, has had multiple admissions for small bowel obstructions. No fevers, chills, nausea or vomiting. Seen in ER by Dr Wilson, and admitted for partial small bowel obstruction. CT done in ER. Diagnosis: Stroke: No - Discharge Data Discharge Date: 12/29/19 Discharge Disposition: Home, Self-Care 01 Condition: Good - Referral to Home Health Primary Care Physician: Srinivas Garzon MD - Discharge Diagnosis/Problem(s) (1) Small bowel obstruction SNOMED Code(s): 552216878 ICD Code: K56.609 - UNSP INTESTNL OBST, UNSP TO PARTIAL VERSUS COMPLETE OBST Status: Resolved Current Visit: No (2) Hypertension SNOMED Code(s): 87753734 ICD Code: I10 - ESSENTIAL (PRIMARY) HYPERTENSION Status: Chronic Current Visit: No Qualifiers: Hypertension type: essential hypertension Qualified Code(s): I10 - Essential (primary) hypertension (3) Allergic reaction SNOMED Code(s): 783913496 ICD Code: T78.40XA - ALLERGY, UNSPECIFIED, INITIAL ENCOUNTER Status: Resolved Current Visit: Yes Qualifiers: Encounter type: initial encounter Qualified Code(s): T78.40XA - Allergy, unspecified, initial encounter - Patient Summary/Data Consults: Consultations 12/26/19 16:44 Consult to Physician [CONS] Routine Consulting Provider: Terry Wilson Call Completed to Consulting Physician: Yes Hospital Course: Colten was admitted for partial small bowel obstruction, on bowel rest initially, had NG tube placed on 12/26, started passing gas, had NG pulled 12/27. His diet was advanced to soft which he tolerated. He received Dilaudid IV for pain, had 6 doses during hospital course, last dose was 12/27 at 8 am, started having persistent full body itching, treated with Benadryl 50 mg IV did not respond so given Dexamethasone 6 mg IV, second dose of Benadryl given at 1334 on 12/27 and has had no further itching. He did not use any Tramadol during hospital stay though ordered. Dilaudid was recorded as allergy, discontinued and started on Toradol 30 mg IV, received 1 dose yesterday afternoon and has not required pain medication since. Had 2 large bowel movements afternoon of 12/27 and again morning of discharge. Patient declined any pain medications to go home with as he states his abdomen is more sore. Last Cr was 1.4 on 12/26, which looks to be his baseline back to 2018. - Patient Instructions Diet, Other: soft Activity: As Tolerated Showering/Bathing: May Shower Notify Provider of: Fever, Increased Pain, Nausea and/or Vomiting Other/Special Instructions: Follow up with Dr Wilson in 1 week at [facility]. - Discharge Plan *PRESCRIPTION DRUG MONITORING PROGRAM REVIEWED*: Not Applicable *COPY OF PRESCRIPTION DRUG MONITORING REPORT IN PATIENT JAM: Not Applicable Home Medications: Home Meds Topiramate 75 mg PO BEDTIME 04/05/18 [History] amLODIPine Besylate [Amlodipine Besylate] 10 mg PO BEDTIME 04/05/18 [History] FLUoxetine HCl [Fluoxetine HCl] 20 mg PO BEDTIME 10/23/18 [History] Omeprazole 20 mg PO BEDTIME 12/21/18 [History] Oxygen Therapy Mode: Room Air Forms: ED Department Discharge Referrals: Srinivas Garzon MD [Primary Care Provider] - - Discharge Summary/Plan Comment DC Time >30 min.: No - General Info Date of Service: 12/29/19 Subjective Update: Colten had a large bowel movement last night and this morning, tolerating diet, pain he describes as more sore now. Dr Wilson saw him today, said he could go home with 1 week follow up on soft diet. No further itching since Dexamethasone & Benadryl given after Dilaudid dose yesterday. Toradol helped with pain. - Patient Data Vitals - Most Recent: Last Vital Signs Temp 97.6 F 12/28/19 20:00 Pulse 98 12/28/19 20:00 Resp 16 12/28/19 20:00 BP 114/74 12/28/19 21:27 Pulse Ox 98 12/28/19 20:00 Weight - Most Recent: 220 lb I&O - Last 24 hours: Intake & Output 12/28/19 12/29/19 12/29/19 22:59 06:59 14:59 Intake Total 1180 635 Balance 1180 635 Med Orders - Current: Current Medications Acetaminophen (Tylenol Extra Strength) 1,000 mg PO Q8H [facility] Last Admin: 12/29/19 03:02 Dose: 1,000 mg Documented by: Amlodipine Besylate (Norvasc) 10 mg PO BEDTIME [facility] Last Admin: 12/28/19 21:27 Dose: 10 mg Documented by: Diphenhydramine HCl (Benadryl) 50 mg IVPUSH Q3H PRN PRN Reason: Itching Last Admin: 12/28/19 13:34 Dose: 50 mg Documented by: Fluoxetine HCl (Prozac) 20 mg PO BEDTIME [facility] Last Admin: 12/28/19 21:27 Dose: 20 mg Documented by: Sodium Chloride (Normal Saline) 1,000 mls @ 999 mls/hr IV ASDIRECTED [facility] Last Admin: 12/26/19 13:45 Dose: 999 mls/hr Documented by: Sodium Chloride (Normal Saline) 1,000 mls @ 75 mls/hr IV ASDIRECTED [facility] Last Infusion: 12/28/19 15:35 Dose: 75 mls/hr Documented by: Ketorolac Tromethamine (Toradol) 30 mg IVPUSH Q6H PRN PRN Reason: Pain Stop: 01/02/20 10:08 Last Admin: 12/28/19 17:15 Dose: 30 mg Documented by: Pantoprazole Sodium (Protonix Iv) 40 mg IVPUSH Q24H [facility] Last Admin: 12/28/19 10:54 Dose: 40 mg Documented by: Sodium Chloride (Saline Flush) 10 ml FLUSH ASDIRECTED PRN PRN Reason: Keep Vein Open Last Admin: 12/26/19 13:28 Dose: 10 ml Documented by: Sumatriptan Succinate (Imitrex) 50 mg PO Q2H PRN PRN Reason: migraine Topiramate (Topamax) 75 mg PO BEDTIME [facility] Last Admin: 12/28/19 21:26 Dose: 75 mg Documented by: Tramadol HCl (Ultram) 50 mg PO Q6H PRN PRN Reason: Pain Discontinued Medications Dexamethasone (Decadron) 6 mg IVPUSH ONETIME ONE Stop: 12/28/19 10:10 Last Admin: 12/28/19 10:53 Dose: 6 mg Documented by: Diphenhydramine HCl (Benadryl) 50 mg IVPUSH Q4H PRN PRN Reason: Itching Last Admin: 12/26/19 17:44 Dose: 50 mg Documented by: Hydromorphone HCl (Dilaudid) 1 mg IVPUSH ONETIME ONE Stop: 12/26/19 15:08 Last Admin: 12/26/19 15:30 Dose: 1 mg Documented by: Hydromorphone HCl (Dilaudid) 1 mg IVPUSH NOW STA Stop: 12/26/19 16:40 Last Admin: 12/26/19 16:43 Dose: 1 mg Documented by: Hydromorphone HCl (Dilaudid) 2 mg IVPUSH Q6H PRN PRN Reason: Pain Last Admin: 12/28/19 08:21 Dose: 2 mg Documented by: Piperacillin Sod/Tazobactam (Sod 3.375 gm/ Sodium Chloride) 50 mls @ 100 mls/hr IV NOW STA Stop: 12/26/19 15:19 Last Admin: 12/26/19 15:31 Dose: 100 mls/hr Documented by: Lidocaine HCl (Glydo) Confirm Administered Dose 6 ml .ROUTE .STK-MED ONE Stop: 12/27/19 07:00 Last Admin: 12/27/19 07:49 Dose: Not Given Documented by: Lidocaine HCl (Glydo) 6 ml .XX ONETIME ONE Stop: 12/27/19 07:01 Last Admin: 12/27/19 07:00 Dose: 6 ml Documented by: Morphine Sulfate (Morphine) 4 mg IVPUSH ONETIME ONE Stop: 12/26/19 12:53 Last Admin: 12/26/19 13:30 Dose: 4 mg Documented by: Non-Formulary Medication (Omeprazole [Omeprazole]) 20 mg PO BEDTIME INRU Ondansetron HCl (Zofran) 4 mg IVPUSH ONETIME ONE Stop: 12/26/19 12:53 Last Admin: 12/26/19 13:28 Dose: 4 mg Documented by: Piperacillin Sod/Tazobactam Sod (Zosyn) Confirm Administered Dose 3.375 gm .ROUTE .STK-MED ONE Stop: 12/26/19 20:49 Last Admin: 12/26/19 22:05 Dose: Not Given Documented by: Sumatriptan Succinate (Imitrex) 6 mg SUBCUT ONETIME ONE Stop: 12/27/19 08:16 Last Admin: 12/27/19 08:54 Dose: 6 mg Documented by: - Exam General: Reports: Alert, Oriented, Cooperative, No Acute Distress Lungs: Reports: Clear to Auscultation, Normal Respiratory Effort Cardiovascular: Reports: Regular Rate, Regular Rhythm GI/Abdominal Exam: Normal Bowel Sounds, Soft, Non-Tender, No Distention
[2019-12-29] MEDS: Pantoprazole 40 MG Vial IVPUSH SCH (10:16)
[2019-12-29 14:44] VITALS: BP 144/87; PULSE 89
== END 2019-12-29 11:05 | disposition home or self-care (01) | DRG 247 ==
LOC: FB.ED 12:41 → FB.MS 16:30
PROVIDERS: ADMIT Family Medicine; ATTEND Family Medicine
DX: K56.51 Intestinal adhesions [bands], with partial obstruction (principal); I10 Essential (primary) hypertension; T78.40XA Allergy, unspecified, initial encounter; G47.33 Obstructive sleep apnea (adult) (pediatric); G43.909 Migraine, unspecified, not intractable, without status migrainosus; K21.9 Gastro-esophageal reflux disease without esophagitis; E66.9 Obesity, unspecified; Z20.828 Contact with and (suspected) exposure to other viral communicable diseases; Z87.442 Personal history of urinary calculi; Z85.528 Personal history of other malignant neoplasm of kidney; Z79.899 Other long term (current) drug therapy; Z87.891 Personal history of nicotine dependence
CPT/HCPCS: 36415; 51701; 74176; 80048; 80053; 81001; 82150; 83690; 83735; 85025; 96361; 96365; 96375; 99285-25; A9270-GY; C9113; J1100; J1170; J1200; J1885; J2270; J2405; J2543; J3030; J7030; J7050; U0002

== ENCOUNTER 2020-01-03 15:27 | Emergency (ER) | payer BC, MEDICAID ==
[2020-01-03] MEDS ORDERED: Sodium Chloride 0.9% 10 ML Syringe FLUSH PRN (16:15)
[2020-01-03] MEDS ORDERED: Sodium Chloride 0.9% 1,000 ML IV SCH (16:15)
[2020-01-03 17:55] VITALS: PULSE 93
[2020-01-03] MEDS ORDERED: Acetaminophen 500 MG Tab PO ONE (18:09)
[2020-01-03] MEDS ORDERED: traMADol 50 MG Tab PO ONE (18:09)
[2020-01-03] MEDS ORDERED: metroNIDAZOLE 500 MG Tab PO STA (18:09)
--- NOTE | 2020-01-03 18:30 | EDM.PDOC ---
ED HPI GENERAL MEDICAL PROBLEM - General Chief Complaint: Abdominal Pain Stated Complaint: DIARRHEA Time Seen by Provider: 01/03/20 15:30 Source of Information: Reports: Patient History Limitations: Reports: No Limitations - History of Present Illness INITIAL COMMENTS - FREE TEXT/NARRATIVE: Patient presented to the ED because of diarrhea for 2 days which is mostly watery. He was admitted last week because of Nephrolithiasis, SBO, and possible peritonitis. He was given Zosyn for several days. He also c/o ear pain and sore throat. There is no associated fever,chills, nausea or vomiting. Lower abdomen Pain Score (Numeric/FACES): 4 R side of throat in to ear Pain Score (Numeric/FACES): 8 - Related Data Allergies Allergy/AdvReac Type Severity Reaction Status Date / Time No Known Allergies Allergy Verified 01/03/20 15:31 Home Meds: Home Meds Topiramate 75 mg PO BEDTIME 04/05/18 [History] amLODIPine Besylate [Amlodipine Besylate] 10 mg PO BEDTIME 04/05/18 [History] FLUoxetine HCl [Fluoxetine HCl] 20 mg PO BEDTIME 10/23/18 [History] Omeprazole 20 mg PO BEDTIME 12/21/18 [History] metroNIDAZOLE [Flagyl] 500 mg PO Q8H #30 tab 01/03/20 [Rx] traMADol [Ultram] 100 mg PO Q8H PRN #15 tab 01/03/20 [Rx] Past Medical History HEENT History: Reports: Other (See Below) Other HEENT History: hx eye ulcer in past Cardiovascular History: Reports: Hypertension Respiratory History: Reports: Other (See Below) Other Respiratory History: BROCHITIS Gastrointestinal History: Reports: Bowel Obstruction, GERD Other Gastrointestinal History: 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 No surgery done. Genitourinary History: Reports: Renal Calculus Other Genitourinary History: renal cell CA R kidney Musculoskeletal History: Reports: Back Pain, Chronic, Fracture, Other (See Below) Other Musculoskeletal History: hx fx L tib fib, L arm, R arm, ribs, compression fx to back, bilat wrist fx Neurological History: Reports: Migraines Psychiatric History: Reports: Depression Other Psychiatric History: treated w/prozac daily Hematologic History: Reports: Anesthesia Reaction, Blood Transfusion(s) Other Hematologic History: states coma X4 days s/p rt incisional hernia repair, had Pulmonary edema s/p. Oncologic (Cancer) History: Reports: Renal Other Oncologic History: Renal cell Carcinoma 3 yrs ago. - Infectious Disease History Infectious Disease History: Reports: Shingles - Past Surgical History HEENT Surgical History: Reports: Adenoidectomy, Tonsillectomy Cardiovascular Surgical History: Reports: None Respiratory Surgical History: Reports: None GI Surgical History: Reports: Appendectomy, Colonoscopy, EGD, Hernia, Abdominal Male Surgical History: Reports: Nephrectomy Other Male Surgeries/Procedures: partial R kidney nephrectomy Neurological Surgical History: Reports: None Musculoskeletal Surgical History: Reports: ORIF, Shoulder Surgery Other Musculoskeletal Surgeries/Procedures:: bilat elbow surg, 7 R shoulder surg, Oncologic Surgical History: Reports: Other (See Below) Other Oncologic Surgeries/Procedures: R partial nephrectomy Social & Family History - Family History Family Medical History: No Pertinent Family History - Tobacco Use Tobacco Use Status *Q: Former Tobacco User Years of Tobacco use: 20 Used Tobacco, but Quit: Yes Month/Year Tobacco Last Used: 2015 - Caffeine Use Caffeine Use: Reports: Soda Other Caffeine Use: Grain Management. Caffeine Use Comment: soda 1.5 liters daily. - Recreational Drug Use Recreational Drug Use: No - Living Situation & Occupation Living situation: Reports: Occupation: Employed (Works at a local [employer]) ED ROS GENERAL - Review of Systems Review Of Systems: See Below Constitutional: Reports: No Symptoms HEENT: Reports: Ear Pain, Throat Pain Respiratory: Reports: No Symptoms Cardiovascular: Reports: No Symptoms Endocrine: Reports: No Symptoms GI/Abdominal: Reports: Diarrhea : Reports: No Symptoms Musculoskeletal: Reports: No Symptoms Skin: Reports: No Symptoms Neurological: Reports: No Symptoms Psychiatric: Reports: No Symptoms Hematologic/Lymphatic: Reports: No Symptoms Immunologic: Reports: No Symptoms ED EXAM, GI/ABD - Physical Exam Exam: See Below Exam Limited By: No Limitations General Appearance: Alert, No Apparent Distress Ears: Normal External Exam Nose: Normal Inspection, Normal Mucosa, No Blood Throat/Mouth: Normal Inspection, Normal Lips, Normal Teeth, Other (exudates left pharynx) Head: Atraumatic Neck: Normal Inspection Respiratory/Chest: No Respiratory Distress, Lungs Clear, Normal Breath Sounds Cardiovascular: Normal Peripheral Pulses, Regular Rate, Rhythm, No Edema GI/Abdominal Exam: Normal Bowel Sounds, Soft, Non-Tender Back Exam: Normal Inspection, Full Range of Motion Extremities: Normal Inspection, Normal Range of Motion, Non-Tender Neurological: Alert, Oriented, CN II-XII Intact, Normal Cognition Psychiatric: Normal Affect, Normal Mood Skin Exam: Warm, Dry, Intact Course - Vital Signs Text/Narrative:: Labs results reviewed with patient NS 1 L bolus Tramadol 100 mg and Tylenol 1000 mg po x1 Flagyl 500 mg po x1 Cdif-negative Last Recorded V/S: Last Vital Signs Temp 36.7 C 01/03/20 15:27 Pulse 93 01/03/20 18:14 Resp 18 01/03/20 18:14 BP 145/97 H 01/03/20 18:14 Pulse Ox 95 01/03/20 18:14 - Orders/Labs/Meds Labs: Laboratory Tests 01/03/20 01/03/20 Range/Units 15:40 15:40 WBC 8.9 (3.2-10.1) x10-3/uL RBC 5.32 (3.90-5.90) x10(6)uL Hgb 14.8 (12.9-17.7) g/dL Hct 43.3 (38.3-50.1) % MCV 81.5 (80.8-98.7) fL MCH 27.8 (27.0-33.3) pg MCHC 34.1 (28.7-35.3) g/dL RDW 14.5 (12.4-15.0) % Plt Count 216 (117-477) x10(3)uL MPV 8.5 (6.7-11.0) fL Neut % (Auto) 74.7 H (40.3-71.8) % Lymph % (Auto) 16.9 (15.8-45.3) % Bradford % (Auto) 7.1 (5.5-15.2) % Eos % (Auto) 0.7 (0.1-6.8) % Baso % (Auto) 0.6 (0.3-3.8) % Neut # (Auto) 6.6 (1.7-6.9) x10-3/uL Lymph # (Auto) 1.5 (0.5-4.5) x10-3/uL Bradford # (Auto) 0.6 (0.0-1.2) x10-3/uL Eos # (Auto) 0.1 (0.0-0.6) x10-3/uL Baso # (Auto) 0.1 (0.0-0.3) x10-3/uL Sodium 140 (135-145) mmol/L Potassium 3.6 (3.5-5.3) mmol/L Chloride 103 (100-110) mmol/L Carbon Dioxide 26 (21-32) mmol/L BUN 13 (7-18) mg/dL Creatinine 1.4 H (0.70-1.30) mg/dL Est Cr Clr Drug Dosing 72.37 mL/min Estimated GFR (MDRD) 55 L (>60) BUN/Creatinine Ratio 9.3 (9-20) Glucose 90 (80-116) mg/dL Calcium 8.7 (8.6-10.2) mg/dL Meds: Medications Discontinued Medications Generic Name Dose Route Start Last Admin Trade Name Freq PRN Reason Stop Dose Admin Acetaminophen 1,000 mg 01/03/20 18:09 01/03/20 18:18 Tylenol Extra Strength PO 01/03/20 18:10 1,000 mg ONETIME ONE Administration Sodium Chloride 1,000 mls @ 999 mls/hr 01/03/20 16:15 01/03/20 17:20 Normal Saline IV 999 mls/hr ASDIRECTED NIRU Administration Metronidazole 500 mg 01/03/20 18:09 01/03/20 18:18 Flagyl PO 01/03/20 18:10 500 mg NOW STA Administration Sodium Chloride 10 ml 01/03/20 16:15 01/03/20 17:20 Saline Flush FLUSH 10 ml ASDIRECTED PRN Administration Keep Vein Open Tramadol HCl 100 mg 01/03/20 18:09 01/03/20 18:18 Ultram PO 01/03/20 18:10 100 mg ONETIME ONE Administration Departure - Departure Time of Disposition: 17:45 Disposition: Home, Self-Care 01 Condition: Good Clinical Impression: Gastroenteritis - Discharge Information Prescriptions: metroNIDAZOLE [Flagyl] 500 mg PO Q8H #30 tab traMADol [Ultram] 100 mg PO Q8H PRN #15 tab PRN Reason: Pain Instructions: Viral Gastroenteritis, Adult, Tramadol tablets, Pharyngitis, [id number], Metronidazole tablets or capsules Referrals: Srinivas Garzon MD [Primary Care Provider] - Forms: ED Department Discharge Additional Instructions: Please read discharge instructions on gastroenteritis and sore throat Increase Oral fluids Frequent hand washing Drink 2-3 Liters of water a day Flagyl 500 mg 3 times daily for 10 days Tramadol 100 mg with tylenol 100 mg every 8 hours as needed for pain We will call you when we have the Cdif result Follow up as needed Sepsis Event Note (ED) - Evaluation Sepsis Screening Result: No Definite Risk
[2020-01-03 18:58] VITALS: BP 145/97
== END 2020-01-03 18:28 | disposition home or self-care (01) ==
LOC: FB.ED 15:27
DX: K52.9 Noninfective gastroenteritis and colitis, unspecified (principal); I10 Essential (primary) hypertension; K21.9 Gastro-esophageal reflux disease without esophagitis; F32.9 Major depressive disorder, single episode, unspecified; Z87.891 Personal history of nicotine dependence; Z79.899 Other long term (current) drug therapy
CPT/HCPCS: 36415; 80048; 85025; 87230; 99284; A9270-GY; J7030

== ENCOUNTER 2020-01-26 18:25 | Emergency (ER) | payer BC, MEDICAID ==
[2020-01-26 19:11] VITALS: BP 142/95; PULSE 101
[2020-01-26] MEDS ORDERED: HYDROmorphone 2 MG/ML SDV IVPUSH ONE (19:25)
[2020-01-26] MEDS ORDERED: Ondansetron 4 MG/2 ML SDV IVPUSH ONE (19:25)
[2020-01-26] MEDS ORDERED: Sodium Chloride 0.9% 1,000 ML IV SCH (19:30)
--- NOTE | 2020-01-26 19:31 | EDM.PDOC ---
ED HPI GENERAL MEDICAL PROBLEM - General Chief Complaint: Abdominal Pain Stated Complaint: ABD PAIN Time Seen by Provider: 01/26/20 19:28 Source of Information: Reports: Patient History Limitations: Reports: No Limitations - History of Present Illness INITIAL COMMENTS - FREE TEXT/NARRATIVE: Colten Complains of abdominal pain and cramps x 3 days,along with nausea and diarrhea. This is recurrent over the last month,with an admission a month ago for SBO. He has had acute gastroenteritis as well. He has HTN that is stable. Has had multiple abdominal surgeries. Abdominal Pain Score (Numeric/FACES): 9 - Related Data Allergies Allergy/AdvReac Type Severity Reaction Status Date / Time No Known Allergies Allergy Verified 01/26/20 18:36 Home Meds: Home Meds Topiramate 75 mg PO BEDTIME 04/05/18 [History] amLODIPine Besylate [Amlodipine Besylate] 10 mg PO BEDTIME 04/05/18 [History] FLUoxetine HCl [Fluoxetine HCl] 20 mg PO BEDTIME 10/23/18 [History] Omeprazole 20 mg PO BEDTIME 12/21/18 [History] Dicyclomine [Bentyl] 20 mg PO QIDACANDBED PRN #20 tab 01/26/20 [Rx] Past Medical History HEENT History: Reports: Other (See Below) Other HEENT History: hx eye ulcer in past Cardiovascular History: Reports: Hypertension Respiratory History: Reports: Other (See Below) Other Respiratory History: BROCHITIS Gastrointestinal History: Reports: Bowel Obstruction, GERD Other Gastrointestinal History: 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 No surgery done. Genitourinary History: Reports: Renal Calculus Other Genitourinary History: renal cell CA R kidney Musculoskeletal History: Reports: Back Pain, Chronic, Fracture, Other (See Below) Other Musculoskeletal History: hx fx L tib fib, L arm, R arm, ribs, compression fx to back, bilat wrist fx Neurological History: Reports: Migraines Psychiatric History: Reports: Depression Other Psychiatric History: treated w/prozac daily Hematologic History: Reports: Anesthesia Reaction, Blood Transfusion(s) Other Hematologic History: states coma X4 days s/p rt incisional hernia repair, had Pulmonary edema s/p. Oncologic (Cancer) History: Reports: Renal Other Oncologic History: Renal cell Carcinoma 3 yrs ago. - Infectious Disease History Infectious Disease History: Reports: Shingles - Past Surgical History HEENT Surgical History: Reports: Adenoidectomy, Tonsillectomy Cardiovascular Surgical History: Reports: None Respiratory Surgical History: Reports: None GI Surgical History: Reports: Appendectomy, Colonoscopy, EGD, Hernia, Abdominal Male Surgical History: Reports: Nephrectomy Other Male Surgeries/Procedures: partial R kidney nephrectomy Neurological Surgical History: Reports: None Musculoskeletal Surgical History: Reports: ORIF, Shoulder Surgery Other Musculoskeletal Surgeries/Procedures:: bilat elbow surg, 7 R shoulder surg, Oncologic Surgical History: Reports: Other (See Below) Other Oncologic Surgeries/Procedures: R partial nephrectomy Social & Family History - Family History Family Medical History: No Pertinent Family History - Caffeine Use Caffeine Use: Reports: Soda Other Caffeine Use: mountain dew. Caffeine Use Comment: soda 1.5 liters daily. 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 ED EXAM, GI/ABD - Physical Exam Exam: See Below Exam Limited By: No Limitations General Appearance: Alert, WD/WN Eyes: Bilateral: Normal Appearance, EOMI Ears: Normal External Exam Nose: Normal Inspection Throat/Mouth: Normal Inspection Head: Atraumatic Respiratory/Chest: No Respiratory Distress Cardiovascular: Regular Rate, Rhythm GI/Abdominal Exam: Soft, No Distention, Tender. No: Guarding Course - Vital Signs Last Recorded V/S: Last Vital Signs Temp 98.1 F 01/26/20 18:25 Pulse 101 H 01/26/20 18:25 Resp 20 01/26/20 18:25 BP 142/95 H 01/26/20 18:25 Pulse Ox 100 01/26/20 18:25 - Orders/Labs/Meds Orders: Active Orders 24 hr Category Date Time Status Abdomen Pelvis wo Cont [CT] Stat Exams 01/26/20 19:25 Taken C DIFFICILE AG/TOXIN W/REFLEX [RM] Urgent Lab 01/26/20 19:25 Ordered CULTURE URINE [RM] Stat Lab 01/26/20 19:30 Received Sodium Chloride 0.9% [Normal Saline] 1,000 ml Med 01/26/20 19:30 Active IV ASDIRECTED Medication Orders Sodium Chloride (Normal Saline) 1,000 mls @ 150 mls/hr IV ASDIRECTED NIRU Last Admin: 01/26/20 19:38 Dose: 150 mls/hr Documented by: CELESTINE Labs: Laboratory Tests 01/26/20 01/26/20 01/26/20 Range/Units 19:15 19:15 19:25 WBC 9.8 (3.2-10.1) x10-3/uL RBC 5.61 (3.90-5.90) x10(6)uL Hgb 15.6 (12.9-17.7) g/dL Hct 45.3 (38.3-50.1) % MCV 80.8 (80.8-98.7) fL MCH 27.9 (27.0-33.3) pg MCHC 34.5 (28.7-35.3) g/dL RDW 14.7 (12.4-15.0) % Plt Count 217 (117-477) x10(3)uL MPV 8.7 (6.7-11.0) fL Neut % (Auto) 73.0 H (40.3-71.8) % Lymph % (Auto) 17.1 (15.8-45.3) % Bee % (Auto) 7.1 (5.5-15.2) % Eos % (Auto) 2.0 (0.1-6.8) % Baso % (Auto) 0.8 (0.3-3.8) % Neut # (Auto) 7.1 H (1.7-6.9) x10-3/uL Lymph # (Auto) 1.7 (0.5-4.5) x10-3/uL Bee # (Auto) 0.7 (0.0-1.2) x10-3/uL Eos # (Auto) 0.2 (0.0-0.6) x10-3/uL Baso # (Auto) 0.1 (0.0-0.3) x10-3/uL Sodium 141 (135-145) mmol/L Potassium 3.7 (3.5-5.3) mmol/L Chloride 104 (100-110) mmol/L Carbon Dioxide 22 (21-32) mmol/L BUN 13 (7-18) mg/dL Creatinine 1.6 H (0.70-1.30) mg/dL Est Cr Clr Drug Dosing 63.32 mL/min Estimated GFR (MDRD) 47 L (>60) BUN/Creatinine Ratio 8.1 L (9-20) Glucose 123 H (80-116) mg/dL Calcium 8.4 L (8.6-10.2) mg/dL Total Bilirubin 0.4 (0.1-1.3) mg/dL AST 15 D (5-25) IU/L ALT 24 D (12-36) U/L Alkaline Phosphatase 103 (56-112) IU/L Total Protein 7.8 (6.0-8.0) g/dL Albumin 3.9 (3.5-5.2) g/dL Globulin 3.9 g/dL Albumin/Globulin Ratio 1.0 Urine Color (YELLOW) Urine Appearance (CLEAR) Urine pH (5.0-6.5) Ur Specific [place] (1.010-1.025) Urine Protein (NEGATIVE) mg/dL Urine Glucose (UA) (NORMAL) mg/dL Urine Ketones (NEGATIVE) mg/dL Urine Occult Blood (NEGATIVE) Urine Nitrite (NEGATIVE) Urine Bilirubin (NEGATIVE) Urine Urobilinogen (NEGATIVE) mg/dL Ur Leukocyte Esterase (NEGATIVE) Urine RBC (0-5) Urine WBC (0-5) Ur Squamous Epith Cells (NS,R,O) Urine Bacteria (NS) SARS-CoV-2 RNA (GLYNN) Negative (NEGATIVE) 01/26/20 Range/Units 19:30 WBC (3.2-10.1) x10-3/uL RBC (3.90-5.90) x10(6)uL Hgb (12.9-17.7) g/dL Hct (38.3-50.1) % MCV (80.8-98.7) fL MCH (27.0-33.3) pg MCHC (28.7-35.3) g/dL RDW (12.4-15.0) % Plt Count (117-477) x10(3)uL MPV (6.7-11.0) fL Neut % (Auto) (40.3-71.8) % Lymph % (Auto) (15.8-45.3) % Bee % (Auto) (5.5-15.2) % Eos % (Auto) (0.1-6.8) % Baso % (Auto) (0.3-3.8) % Neut # (Auto) (1.7-6.9) x10-3/uL Lymph # (Auto) (0.5-4.5) x10-3/uL Bee # (Auto) (0.0-1.2) x10-3/uL Eos # (Auto) (0.0-0.6) x10-3/uL Baso # (Auto) (0.0-0.3) x10-3/uL Sodium (135-145) mmol/L Potassium (3.5-5.3) mmol/L Chloride (100-110) mmol/L Carbon Dioxide (21-32) mmol/L BUN (7-18) mg/dL Creatinine (0.70-1.30) mg/dL Est Cr Clr Drug Dosing mL/min Estimated GFR (MDRD) (>60) BUN/Creatinine Ratio (9-20) Glucose (80-116) mg/dL Calcium (8.6-10.2) mg/dL Total Bilirubin (0.1-1.3) mg/dL AST (5-25) IU/L ALT (12-36) U/L Alkaline Phosphatase (56-112) IU/L Total Protein (6.0-8.0) g/dL Albumin (3.5-5.2) g/dL Globulin g/dL Albumin/Globulin Ratio Urine Color Yellow (YELLOW) Urine Appearance Clear (CLEAR) Urine pH 5.0 (5.0-6.5) Ur Specific [place] 1.020 (1.010-1.025) Urine Protein Negative (NEGATIVE) mg/dL Urine Glucose (UA) Normal (NORMAL) mg/dL Urine Ketones Negative (NEGATIVE) mg/dL Urine Occult Blood Negative (NEGATIVE) Urine Nitrite Negative (NEGATIVE) Urine Bilirubin Negative (NEGATIVE) Urine Urobilinogen Normal (NEGATIVE) mg/dL Ur Leukocyte Esterase Small H (NEGATIVE) Urine RBC 5-10 H (0-5) Urine WBC 5-10 H (0-5) Ur Squamous Epith Cells Occasional (NS,R,O) Urine Bacteria Rare H (NS) SARS-CoV-2 RNA (GLYNN) (NEGATIVE) Meds: Medications Generic Name Dose Route Start Last Admin Trade Name Freq PRN Reason Stop Dose Admin Sodium Chloride 1,000 mls @ 150 mls/hr 01/26/20 19:30 01/26/20 19:38 Normal Saline IV 150 mls/hr ASDIRECTED NIRU Administration Discontinued Medications Generic Name Dose Route Start Last Admin Trade Name Freq PRN Reason Stop Dose Admin Hydromorphone HCl 2 mg 01/26/20 19:25 01/26/20 19:57 Dilaudid IVPUSH 01/26/20 19:26 2 mg ONETIME ONE Administration Ondansetron HCl 8 mg 01/26/20 19:25 01/26/20 19:39 Zofran IVPUSH 01/26/20 19:26 8 mg ONETIME ONE Administration Departure - Departure Time of Disposition: 20:30 Disposition: Home, Self-Care 01 Condition: Good Clinical Impression: Abdominal pain - Discharge Information Prescriptions: Dicyclomine [Bentyl] 20 mg PO QIDACANDBED PRN #20 tab PRN Reason: Cramping Instructions: Abdominal Pain, Adult, Diet for Irritable Bowel Syndrome Referrals: Srinivas Garzon MD [Primary Care Provider] - 01/30/20 Forms: ED Department Discharge Sepsis Event Note (ED) - Focused Exam Vital Signs: Vital Signs Temp Pulse Resp BP Pulse Ox 01/26/20 18:25 98.1 F 101 H 20 142/95 H 100 - Problem List & Annotations (1) Gastroenteritis SNOMED Code(s): 22314562 Code(s): K52.9 - NONINFECTIVE GASTROENTERITIS AND COLITIS, UNSPECIFIED Status: Acute Current Visit: No Annotation/Comment:: (2) IBS (irritable bowel syndrome) SNOMED Code(s): 14724574 Code(s): K58.9 - IRRITABLE BOWEL SYNDROME WITHOUT DIARRHEA Status: Acute Current Visit: Yes Qualifiers: Irritable bowel syndrome type: with diarrhea Qualified Code(s): K58.0 - Irritable bowel syndrome with diarrhea - Problem List Review Problem List Initiated/Reviewed/Updated: Yes - My Orders Last 24 Hours: My Active Orders 01/26/20 19:25 Abdomen Pelvis wo Cont [CT] Stat C DIFFICILE AG/TOXIN W/REFLEX [RM] Urgent 01/26/20 19:30 CULTURE URINE [RM] Stat Sodium Chloride 0.9% [Normal Saline] 1,000 ml IV ASDIRECTED - Assessment/Plan Last 24 Hours: My Active Orders 01/26/20 19:25 Abdomen Pelvis wo Cont [CT] Stat C DIFFICILE AG/TOXIN W/REFLEX [RM] Urgent 01/26/20 19:30 CULTURE URINE [RM] Stat Sodium Chloride 0.9% [Normal Saline] 1,000 ml IV ASDIRECTED Plan: Ct was negative.CBC normal. DC home after Fluids,IV Dilaudid. A trial of Bentyl. Follow up on Tuesday
== END 2020-01-26 20:50 | disposition home or self-care (01) ==
LOC: FB.ED 18:25
DX: R10.9 Unspecified abdominal pain (principal); I10 Essential (primary) hypertension; K21.9 Gastro-esophageal reflux disease without esophagitis; G43.909 Migraine, unspecified, not intractable, without status migrainosus; F32.9 Major depressive disorder, single episode, unspecified; Z79.899 Other long term (current) drug therapy; Z20.828 Contact with and (suspected) exposure to other viral communicable diseases
CPT/HCPCS: 36415; 74176; 80053; 81001; 85025; 87086; 87635; 96374; 96375; 99284; J1170; J2405; J7030; U0002

== ENCOUNTER 2020-03-06 07:19 | Emergency (ER) | payer BC, MEDICAID ==
--- NOTE | 2020-03-06 07:51 | EDM.PDOC ---
ED HPI GENERAL MEDICAL PROBLEM - General Stated Complaint: KIDNEY STONE Time Seen by Provider: 03/06/20 07:45 Source of Information: Reports: Patient History Limitations: Reports: No Limitations - History of Present Illness INITIAL COMMENTS - FREE TEXT/NARRATIVE: 44-year-old male with history of kidney stones who reports onset of left groin, left flank and left mid back pain approximately 10 PM last night when he was lying down for bed and has been waxing and waning during the night. He reports that he does have some pain at the tip of his penis when urinating as well. He reports the pain as a 10/10. It is sharp and aching type pain with no exacerbating or alleviating factors. He has had some nausea but no vomiting. No hematuria. No fevers or chills. No antecedent problems. He has been eating and drinking normally. He states that he actually saw a box car bracer yesterday in regard to his kidney function and kidney stones and was put on the medication which he has not filled yet. There are no other associated signs or symptoms. There are no other modifying factors. Onset: Other Duration: Getting Worse, Waxing/Waning (10 PM last night) Location: Reports: Abdomen (As above.) Quality: Reports: Ache, Sharp, Stabbing Severity: Severe Improves with: Reports: None Worsens with: Reports: None Context: Reports: Other Associated Symptoms: Reports: Nausea/Vomiting Treatments WARP DRESSER: Reports: Other (see below) (Nothing.) - Related Data Allergies Allergy/AdvReac Type Severity Reaction Status Date / Time No Known Allergies Allergy Verified 03/06/20 07:37 Home Meds: Home Meds Topiramate 75 mg PO BEDTIME 04/05/18 [History] amLODIPine Besylate [Amlodipine Besylate] 10 mg PO BEDTIME 04/05/18 [History] FLUoxetine HCl [Fluoxetine HCl] 20 mg PO BEDTIME 10/23/18 [History] Omeprazole 20 mg PO BEDTIME 12/21/18 [History] .Hydrochlorot 25 mg PO DAILY 03/06/20 [History] Acetaminophen/oxyCODONE [Percocet 325-5 MG] 1 - 2 tab PO Q6H PRN #8 tab 03/06/20 [Rx] Past Medical History HEENT History: Reports: Other (See Below) Other HEENT History: hx eye ulcer in past Cardiovascular History: Reports: Hypertension Gastrointestinal History: Reports: Bowel Obstruction, GERD Other Gastrointestinal History: 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 No surgery done. Genitourinary History: Reports: Renal Calculus Other Genitourinary History: renal cell CA R kidney Musculoskeletal History: Reports: Back Pain, Chronic, Fracture, Other (See Below) Other Musculoskeletal History: hx fx L tib fib, L arm, R arm, ribs, compression fx to back, bilat wrist fx Neurological History: Reports: Migraines Psychiatric History: Reports: Depression Other Psychiatric History: treated w/prozac daily Hematologic History: Reports: Anesthesia Reaction, Blood Transfusion(s) Other Hematologic History: states coma X4 days s/p rt incisional hernia repair, had Pulmonary edema s/p. Oncologic (Cancer) History: Reports: Renal Other Oncologic History: Renal cell Carcinoma 3 yrs ago. - Infectious Disease History Infectious Disease History: Reports: Shingles - Past Surgical History HEENT Surgical History: Reports: Adenoidectomy, Tonsillectomy GI Surgical History: Reports: Appendectomy, Colonoscopy, EGD, Hernia, Abdominal Male Surgical History: Reports: Nephrectomy Other Male Surgeries/Procedures: partial R kidney nephrectomy Neurological Surgical History: Reports: None Musculoskeletal Surgical History: Reports: ORIF, Shoulder Surgery Other Musculoskeletal Surgeries/Procedures:: bilat elbow surg, 7 R shoulder surg, Oncologic Surgical History: Reports: Other (See Below) Other Oncologic Surgeries/Procedures: R partial nephrectomy Social & Family History - Tobacco Use Tobacco Use Status *Q: Former Tobacco User (Quit smoking 5 years ago.) - Caffeine Use Caffeine Use: Reports: Soda Other Caffeine Use: mountain dew. Caffeine Use Comment: soda 1.5 liters daily. 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 Denies: Dysuria Musculoskeletal: Reports: Back Pain Skin: Reports: No Symptoms Neurological: Reports: No Symptoms Psychiatric: Reports: No Symptoms Hematologic/Lymphatic: Reports: No Symptoms Immunologic: Reports: No Symptoms ED EXAM, RENAL/ - Physical Exam Exam: See Below Exam Limited By: No Limitations General Appearance: Alert, WD/WN, Mild Distress, Other (Nontoxic appearing.) Eye Exam: Bilateral Eye: EOMI, Normal Inspection, PERRL Ears: Normal External Exam, Hearing Grossly Normal Nose: Normal Inspection, Normal Mucosa, No Blood Throat/Mouth: Normal Inspection, Normal Oropharynx, Normal Voice, No Airway Compromise Head: Atraumatic, Normocephalic Neck: Normal Inspection, Supple, Non-Tender, Full Range of Motion Respiratory/Chest: No Respiratory Distress, Lungs Clear, Normal Breath Sounds, No Accessory Muscle Use, Chest Non-Tender Cardiovascular: Normal Peripheral Pulses, Regular Rate, Rhythm, No Murmur GI/Abdominal: Normal Bowel Sounds, Soft, Non-Tender, No Organomegaly, No Distent ion, No Mass Back Exam: Normal Inspection, Full Range of Motion. No: CVA Tenderness (R), CVA Tenderness (L) Extremities: Normal Inspection, Normal Range of Motion, Non-Tender, No Pedal Edema, Normal Capillary Refill Neurological: Alert, Oriented, CN II-XII Intact, Normal Cognition, No Motor/Sensory Deficits Psychiatric: Normal Affect Skin Exam: Warm, Dry, Intact, Normal Color, No Rash Lymphatic: No Adenopathy Course - Vital Signs Last Recorded V/S: Last Vital Signs Temp 36.7 C 03/06/20 07:19 Pulse 68 03/06/20 08:55 Resp 16 03/06/20 08:55 BP 145/74 H 03/06/20 08:55 Pulse Ox 99 03/06/20 08:55 - Orders/Labs/Meds Orders: Active Orders 24 hr Category Date Time Status Abdomen Pelvis wo Cont [CT] Stat Exams 03/06/20 08:20 Taken STONE ANALYSIS Routine Lab 03/06/20 10:09 Ordered Sodium Chloride 0.9% [Normal Saline] 1,000 ml Med 03/06/20 08:00 Active IV ASDIRECTED Sodium Chloride 0.9% [Saline Flush] Med 03/06/20 07:52 Active 10 ml FLUSH ASDIRECTED PRN Peripheral IV Insertion Adult [OM.PC] Routine Oth 03/06/20 07:52 Ordered Medication Orders Sodium Chloride (Normal Saline) 1,000 mls @ 150 mls/hr IV ASDIRECTED NIRU Sodium Chloride (Saline Flush) 10 ml FLUSH ASDIRECTED PRN PRN Reason: Keep Vein Open Labs: Laboratory Tests 03/06/20 03/06/20 03/06/20 Range/Units 07:49 08:10 08:10 WBC 6.6 (3.2-10.1) x10-3/uL RBC 5.22 (3.90-5.90) x10(6)uL Hgb 14.4 (12.9-17.7) g/dL Hct 42.5 (38.3-50.1) % MCV 81.6 (80.8-98.7) fL MCH 27.5 (27.0-33.3) pg MCHC 33.7 (28.7-35.3) g/dL RDW 14.9 (12.4-15.0) % Plt Count 158 (117-477) x10(3)uL MPV 8.2 (6.7-11.0) fL Neut % (Auto) 69.4 (40.3-71.8) % Lymph % (Auto) 18.2 (15.8-45.3) % [place] % (Auto) 8.3 (5.5-15.2) % Eos % (Auto) 3.0 (0.1-6.8) % Baso % (Auto) 1.1 (0.3-3.8) % Neut # (Auto) 4.6 (1.7-6.9) x10-3/uL Lymph # (Auto) 1.2 (0.5-4.5) x10-3/uL [place] # (Auto) 0.6 (0.0-1.2) x10-3/uL Eos # (Auto) 0.2 (0.0-0.6) x10-3/uL Baso # (Auto) 0.1 (0.0-0.3) x10-3/uL Sodium 142 (135-145) mmol/L Potassium 3.7 (3.5-5.3) mmol/L Chloride 107 (100-110) mmol/L Carbon Dioxide 22 (21-32) mmol/L BUN 13 (7-18) mg/dL Creatinine 1.4 H (0.70-1.30) mg/dL Est Cr Clr Drug Dosing TNP Estimated GFR (MDRD) 55 L (>60) BUN/Creatinine Ratio 9.3 (9-20) Glucose 105 (80-116) mg/dL Calcium 7.8 L (8.6-10.2) mg/dL Urine Color Yellow (YELLOW) Urine Appearance Clear (CLEAR) Urine pH 6.0 (5.0-6.5) Ur Specific [place] 1.010 (1.010-1.025) Urine Protein Negative (NEGATIVE) mg/dL Urine Glucose (UA) Normal (NORMAL) mg/dL Urine Ketones Negative (NEGATIVE) mg/dL Urine Occult Blood Negative (NEGATIVE) Urine Nitrite Negative (NEGATIVE) Urine Bilirubin Negative (NEGATIVE) Urine Urobilinogen Normal (NEGATIVE) mg/dL Ur Leukocyte Esterase Negative (NEGATIVE) Urine WBC 0-5 (0-5) Ur Squamous Epith Cells Occasional (NS,R,O) Urine Bacteria Occasional H (NS) Meds: Medications Generic Name Dose Route Start Last Admin Trade Name Freq PRN Reason Stop Dose Admin Sodium Chloride 1,000 mls @ 150 mls/hr 03/06/20 08:00 Normal Saline IV ASDIRECTED NIRU Sodium Chloride 10 ml 03/06/20 07:52 Saline Flush FLUSH ASDIRECTED PRN Keep Vein Open Discontinued Medications Generic Name Dose Route Start Last Admin Trade Name Freq PRN Reason Stop Dose Admin Hydromorphone HCl 1 mg 03/06/20 07:53 03/06/20 08:03 Dilaudid IVPUSH 03/06/20 07:54 1 mg ONETIME ONE Administration Sodium Chloride 1,000 mls @ 999 mls/hr 03/06/20 07:53 03/06/20 07:50 Normal Saline IV 03/06/20 08:53 999 mls/hr .BOLUS ONE Administration Ondansetron HCl 4 mg 03/06/20 07:53 03/06/20 08:04 Zofran IVPUSH 03/06/20 07:54 4 mg ONETIME ONE Administration - Radiology Interpretation Free Text/Narrative:: CT scan of abdomen and pelvis without IV contrast showed tiny stone in the base of the urinary bladder that is likely a recently passed stone from the left ureter. There are bilateral renal stones present but no hydronephrosis. This is per the [facility] radiologist. - Re-Assessments/Exams Free Text/Narrative Re-Assessment/Exam: 03/06/20 09:45: The patient's pain is down to 5/10. He looks comfortable at this time. His blood work was essentially unremarkable. He did have a creatinine 1.4. Urinalysis showed no evidence of infection. There was a stone in the urine specimen that he provided. CT scan of his abdomen and pelvis showed another small stone in the urinary bladder and therefore he probably passed 2 stones. There is no residual hydronephrosis and the remainder the CT scan was reassuring. I will have the patient increase his fluid intake and I stressed this to be a lifelong habit for him to really keep himself very hydrated at all times to help prevent kidney stones in the future. I will also give him 2 days off, today and tomorrow, from work. I have given him a small prescription of Percocet 5/325 he can use for pain as needed. I did send the kidney stone for stone analysis. Departure - Departure Time of Disposition: 10:00 Disposition: Home, Self-Care 01 Condition: Good Clinical Impression: Renal colic on left side, Ureteral calculus, left - Discharge Information Prescriptions: Acetaminophen/oxyCODONE [Percocet 325-5 MG] 1 - 2 tab PO Q6H PRN #8 tab PRN Reason: Moderate to severe pain Instructions: Renal Colic, [id number], Kidney Stones, [id number] Referrals: Srinivas Garzon MD [Primary Care Provider] - Forms: ED Return to Work/School Form Additional Instructions: Your blood tests were reassuring. Your creatinine was 1.4. The CT scan of your abdomen and pelvis showed small stone in your bladder which most probably represented a recently passed stone. You most probably have passed 2 kidney stones on the left side today. The pain that you are having should get better over the next 1-2 days at most. You need to increase your fluid intake. No work until 03/08/2020. Medication as prescribed for pain (Percocet 5/325). Back to the emergency department for increasing pain, fever, unrelenting vomiting or any other concerning sign or symptom. Sepsis Event Note (ED) - Focused Exam Vital Signs: Vital Signs Temp Pulse Resp BP Pulse Ox 03/06/20 08:55 68 16 145/74 H 99 03/06/20 07:19 36.7 C 85 16 153/98 H 99 - My Orders Last 24 Hours: My Active Orders 03/06/20 07:52 Sodium Chloride 0.9% [Saline Flush] 10 ml FLUSH ASDIRECTED PRN Peripheral IV Insertion Adult [OM.PC] Routine 03/06/20 08:00 Sodium Chloride 0.9% [Normal Saline] 1,000 ml IV ASDIRECTED 03/06/20 08:20 Abdomen Pelvis wo Cont [CT] Stat 03/06/20 10:09 STONE ANALYSIS Routine - Assessment/Plan Last 24 Hours: My Active Orders 03/06/20 07:52 Sodium Chloride 0.9% [Saline Flush] 10 ml FLUSH ASDIRECTED PRN Peripheral IV Insertion Adult [OM.PC] Routine 03/06/20 08:00 Sodium Chloride 0.9% [Normal Saline] 1,000 ml IV ASDIRECTED 03/06/20 08:20 Abdomen Pelvis wo Cont [CT] Stat 03/06/20 10:09 STONE ANALYSIS Routine
[2020-03-06] MEDS ORDERED: Sodium Chloride 0.9% 10 ML Syringe FLUSH PRN (07:52)
[2020-03-06] MEDS ORDERED: HYDROmorphone 2 MG/ML SDV IVPUSH ONE (07:53)
[2020-03-06] MEDS ORDERED: Sodium Chloride 0.9% 1,000 ML IV ONE (07:53)
[2020-03-06] MEDS ORDERED: Ondansetron 4 MG/2 ML SDV IVPUSH ONE (07:53)
[2020-03-06] MEDS ORDERED: Sodium Chloride 0.9% 1,000 ML IV SCH (08:00)
[2020-03-06 08:56] VITALS: BP 145/74; PULSE 68
== END 2020-03-06 10:20 | disposition home or self-care (01) ==
LOC: FB.ED 07:19
DX: N20.2 Calculus of kidney with calculus of ureter (principal); I10 Essential (primary) hypertension; K21.9 Gastro-esophageal reflux disease without esophagitis; Z79.899 Other long term (current) drug therapy; Z87.891 Personal history of nicotine dependence
CPT/HCPCS: 36415; 74176; 80048; 81001; 82365; 85025; 96374; 96375; 99284; J1170; J2405; J7030

== ENCOUNTER 2020-03-25 17:36 | Emergency (ER) | payer BC, MEDICAID ==
[2020-03-25] MEDS ORDERED: Acetaminophen/oxyCODONE 325-5 MG Tab PO ONE (17:37)
[2020-03-25] MEDS ORDERED: Ondansetron 4 MG/2 ML SDV IVPUSH STA (17:48)
[2020-03-25] MEDS ORDERED: diphenhydrAMINE 50 MG/ML SDV IVPUSH STA (17:48)
[2020-03-25] MEDS ORDERED: Morphine 4 MG/ML VIAL IVPUSH STA (17:48)
[2020-03-25] MEDS ORDERED: Ketorolac 30 MG/ML SDV IVPUSH STA (17:48)
[2020-03-25] MEDS ORDERED: Tamsulosin 0.4 MG Cap.ER PO STA (17:48)
[2020-03-25] MEDS ORDERED: Sodium Chloride 0.9% 1,000 ML IV SCH (18:00)
[2020-03-25] MEDS ORDERED: Potassium Chloride 20 MEQ Tab.ER PO STA (18:41)
--- NOTE | 2020-03-25 18:47 | EDM.PDOC ---
ED HPI GENERAL MEDICAL PROBLEM - General Chief Complaint: Flank Pain Stated Complaint: Left flank pain Time Seen by Provider: 03/25/20 17:40 Source of Information: Reports: Patient History Limitations: Reports: No Limitations - History of Present Illness INITIAL COMMENTS - FREE TEXT/NARRATIVE: Patient presented to the ED because of left flank pain which started this morning. The pain is sharp, 8/10, radiating towards the left groin. There is associated nausea but no vomiting. No fever, chills noted. He has a history of multiple stones in both kidneys based on previous CT scan and he is under the care of both [facility]fferdam and Urologist in [place]. left side flank and groin Pain Score (Numeric/FACES): 10 - Related Data Allergies Allergy/AdvReac Type Severity Reaction Status Date / Time No Known Allergies Allergy Verified 03/06/20 07:37 Home Meds: Home Meds Topiramate 75 mg PO BEDTIME 04/05/18 [History] amLODIPine Besylate [Amlodipine Besylate] 10 mg PO BEDTIME 04/05/18 [History] FLUoxetine HCl [Fluoxetine HCl] 20 mg PO BEDTIME 10/23/18 [History] Omeprazole 20 mg PO BEDTIME 12/21/18 [History] .Hydrochlorot 25 mg PO DAILY 03/06/20 [History] Acetaminophen/oxyCODONE [Percocet 325-5 MG] 1 - 2 tab PO Q6H PRN #8 tab 03/06/20 [Rx] Acetaminophen/oxyCODONE [Percocet 325-5 MG] 1 each PO Q4H PRN #10 tab 03/25/20 [Rx] Ondansetron [Zofran ODT] 4 mg PO Q4H PRN #5 tab.dis 03/25/20 [Rx] Tamsulosin HCl [Flomax] 0.4 mg PO DAILY #10 cap.er.24h 03/25/20 [Rx] Past Medical History HEENT History: Reports: Other (See Below) Other HEENT History: hx eye ulcer in past Cardiovascular History: Reports: Hypertension Respiratory History: Reports: Other (See Below) Other Respiratory History: BROCHITIS Gastrointestinal History: Reports: Bowel Obstruction, GERD Other Gastrointestinal History: 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 No surgery done. Genitourinary History: Reports: Renal Calculus Other Genitourinary History: renal cell CA R kidney Musculoskeletal History: Reports: Back Pain, Chronic, Fracture, Other (See Below) Other Musculoskeletal History: hx fx L tib fib, L arm, R arm, ribs, compression fx to back, bilat wrist fx Neurological History: Reports: Migraines Psychiatric History: Reports: Depression Other Psychiatric History: treated w/prozac daily Hematologic History: Reports: Anesthesia Reaction, Blood Transfusion(s) Other Hematologic History: states coma X4 days s/p rt incisional hernia repair, had Pulmonary edema s/p. Oncologic (Cancer) History: Reports: Renal Other Oncologic History: Renal cell Carcinoma 3 yrs ago. - Infectious Disease History Infectious Disease History: Reports: Shingles - Past Surgical History HEENT Surgical History: Reports: Adenoidectomy, Tonsillectomy Cardiovascular Surgical History: Reports: None Respiratory Surgical History: Reports: None GI Surgical History: Reports: Appendectomy, Colonoscopy, EGD, Hernia, Abdominal Male Surgical History: Reports: Nephrectomy Other Male Surgeries/Procedures: partial R kidney nephrectomy Neurological Surgical History: Reports: None Musculoskeletal Surgical History: Reports: ORIF, Shoulder Surgery Other Musculoskeletal Surgeries/Procedures:: bilat elbow surg, 7 R shoulder surg, Oncologic Surgical History: Reports: Other (See Below) Other Oncologic Surgeries/Procedures: R partial nephrectomy Social & Family History - Family History Family Medical History: No Pertinent Family History - Tobacco Use Tobacco Use Status *Q: Former Tobacco User Used Tobacco, but Quit: Yes Month/Year Tobacco Last Used: 2015 - Caffeine Use Caffeine Use: Reports: Soda Other Caffeine Use: mountain dew. Caffeine Use Comment: soda 1.5 liters daily. - Living Situation & Occupation Living situation: Reports: Occupation: Employed (Works at a [employer]) ED ROS GENERAL - Review of Systems Review Of Systems: See Below Constitutional: Reports: No Symptoms HEENT: Reports: No Symptoms Respiratory: Reports: No Symptoms Cardiovascular: Reports: No Symptoms Endocrine: Reports: No Symptoms GI/Abdominal: Reports: Abdominal Pain, Nausea : Reports: No Symptoms Musculoskeletal: Reports: No Symptoms Skin: Reports: No Symptoms Neurological: Reports: No Symptoms Psychiatric: Reports: No Symptoms ED EXAM, RENAL/ - Physical Exam Exam: See Below Exam Limited By: No Limitations General Appearance: Alert, No Apparent Distress Eye Exam: Bilateral Eye: PERRL Ears: Normal External Exam, Normal Canal Nose: Normal Inspection, Normal Mucosa Throat/Mouth: Normal Inspection, Normal Lips Head: Atraumatic, Normocephalic Neck: Normal Inspection, Supple, Non-Tender Respiratory/Chest: No Respiratory Distress, Lungs Clear, Normal Breath Sounds Cardiovascular: Normal Peripheral Pulses, Regular Rate, Rhythm, No Edema, No Gallop, No JVD, No Murmur, No Rub GI/Abdominal: Normal Bowel Sounds, Soft, Non-Tender, No Organomegaly, No Distention, No Abnormal Bruit Back Exam: Normal Inspection, Full Range of Motion Extremities: Normal Inspection, Normal Range of Motion, Non-Tender, No Pedal Edema, Normal Capillary Refill Course - Vital Signs Text/Narrative:: Lab result was discussed with patient K-3.4 Klor con 40 meq po x1 NS 1 L bolus Zofran 4 mg IV Benadryl 50 mg IV Morphine 4 mg IV Toradol 30 mg IV Flomax 1 po Last Recorded V/S: Last Vital Signs Temp 37.2 C 03/25/20 17:36 Pulse 90 03/25/20 19:00 Resp 16 03/25/20 19:00 BP 152/88 H 03/25/20 19:00 Pulse Ox 100 03/25/20 19:00 - Orders/Labs/Meds Orders: Active Orders 24 hr Category Date Time Status Abdomen wo Cont [CT] Stat Exams 03/25/20 17:41 Stop Req Labs: Laboratory Tests 03/25/20 03/25/20 03/25/20 Range/Units 17:58 17:58 18:20 WBC 10.0 (3.2-10.1) x10-3/uL RBC 5.17 (3.90-5.90) x10(6)uL Hgb 14.4 (12.9-17.7) g/dL Hct 42.8 (38.3-50.1) % MCV 82.9 (80.8-98.7) fL MCH 27.8 (27.0-33.3) pg MCHC 33.5 (28.7-35.3) g/dL RDW 14.8 (12.4-15.0) % Plt Count 168 (117-477) x10(3)uL MPV 8.1 (6.7-11.0) fL Neut % (Auto) 75.7 H (40.3-71.8) % Lymph % (Auto) 15.4 L (15.8-45.3) % [place] % (Auto) 5.9 (5.5-15.2) % Eos % (Auto) 2.2 (0.1-6.8) % Baso % (Auto) 0.8 (0.3-3.8) % Neut # (Auto) 7.6 H (1.7-6.9) x10-3/uL Lymph # (Auto) 1.5 (0.5-4.5) x10-3/uL [place] # (Auto) 0.6 (0.0-1.2) x10-3/uL Eos # (Auto) 0.2 (0.0-0.6) x10-3/uL Baso # (Auto) 0.1 (0.0-0.3) x10-3/uL Sodium 139 (135-145) mmol/L Potassium 3.4 L (3.5-5.3) mmol/L Chloride 103 (100-110) mmol/L Carbon Dioxide 24 (21-32) mmol/L BUN 13 (7-18) mg/dL Creatinine 1.4 H (0.70-1.30) mg/dL Est Cr Clr Drug Dosing TNP Estimated GFR (MDRD) 55 L (>60) BUN/Creatinine Ratio 9.3 (9-20) Glucose 92 (80-116) mg/dL Calcium 8.6 (8.6-10.2) mg/dL Urine Color Yellow (YELLOW) Urine Appearance Clear (CLEAR) Urine pH 6.0 (5.0-6.5) Ur Specific [place] 1.010 (1.010-1.025) Urine Protein Negative (NEGATIVE) mg/dL Urine Glucose (UA) Normal (NORMAL) mg/dL Urine Ketones Negative (NEGATIVE) mg/dL Urine Occult Blood Negative (NEGATIVE) Urine Nitrite Negative (NEGATIVE) Urine Bilirubin Negative (NEGATIVE) Urine Urobilinogen Normal (NEGATIVE) mg/dL Ur Leukocyte Esterase Negative (NEGATIVE) Urine RBC Not seen (0-5) Urine WBC 0-5 (0-5) Ur Squamous Epith Cells Rare (NS,R,O) Urine Bacteria Rare H (NS) Meds: Medications Discontinued Medications Generic Name Dose Route Start Last Admin Trade Name Freq PRN Reason Stop Dose Admin Diphenhydramine HCl 50 mg 03/25/20 17:48 03/25/20 18:03 Benadryl IVPUSH 03/25/20 17:49 50 mg NOW STA Administration Sodium Chloride 1,000 mls @ 999 mls/hr 03/25/20 18:00 03/25/20 18:06 Normal Saline IV 999 mls/hr ASDIRECTED NIRU Administration Ketorolac Tromethamine 30 mg 03/25/20 17:48 03/25/20 18:01 Toradol IVPUSH 03/25/20 17:49 30 mg NOW STA Administration Morphine Sulfate 4 mg 03/25/20 17:48 03/25/20 18:01 Morphine IVPUSH 03/25/20 17:49 4 mg NOW STA Administration Ondansetron HCl 4 mg 03/25/20 17:48 03/25/20 18:00 Zofran IVPUSH 03/25/20 17:49 4 mg NOW STA Administration Potassium Chloride 40 meq 03/25/20 18:41 03/25/20 18:47 Klor-Con M20 PO 03/25/20 18:42 40 meq NOW STA Administration Tamsulosin HCl 0.4 mg 03/25/20 17:48 03/25/20 18:04 Flomax PO 03/25/20 17:49 0.4 mg NOW STA Administration Departure - Departure Time of Disposition: 18:45 Disposition: Home, Self-Care 01 Condition: Good Clinical Impression: Nephrolithiasis, Hypokalemia - Discharge Information Prescriptions: Tamsulosin HCl [Flomax] 0.4 mg PO DAILY #10 cap.er.24h Acetaminophen/oxyCODONE [Percocet 325-5 MG] 1 each PO Q4H PRN #10 tab PRN Reason: Pain Ondansetron [Zofran ODT] 4 mg PO Q4H PRN #5 tab.dis PRN Reason: Nausea Instructions: Renal Colic, [id number], Hypokalemia Referrals: Srinivas Garzon MD [Primary Care Provider] - Forms: ED Department Discharge Additional Instructions: Please read discharge instruction on low potassium and kidney stone Increase oral fluids Flomax 1 tablet daily Zofran ODT 4 mg abdi 4 hours as needed for nausea Percocet 1 tablet every 4-6 hours as needed for pain Follow up with your urologist if your pain is getting worse after 3-5 days Sepsis Event Note (ED) - Evaluation Sepsis Screening Result: No Definite Risk - My Orders Last 24 Hours: My Active Orders 03/25/20 17:41 Abdomen wo Cont [CT] Stat - Assessment/Plan Last 24 Hours: My Active Orders 03/25/20 17:41 Abdomen wo Cont [CT] Stat
[2020-03-25 19:01] VITALS: BP 152/88; PULSE 90
== END 2020-03-25 19:07 | disposition home or self-care (01) ==
LOC: FB.ED 17:36
DX: N20.0 Calculus of kidney (principal); E87.6 Hypokalemia; K21.9 Gastro-esophageal reflux disease without esophagitis; I10 Essential (primary) hypertension; Z79.899 Other long term (current) drug therapy; Z87.891 Personal history of nicotine dependence
CPT/HCPCS: 36415; 80048; 81001; 85025; 96374; 96375; 99284; A9270; J1200; J1885; J2270; J2405; J7030

== ENCOUNTER 2020-06-12 15:06 | Emergency (ER) | payer BC, MEDICAID ==
[2020-06-12] MEDS ORDERED: Ondansetron 4 MG/2 ML SDV IVPUSH ONE (15:25)
[2020-06-12] MEDS ORDERED: Ketorolac 30 MG/ML SDV IVPUSH ONE (15:26)
[2020-06-12] MEDS ORDERED: Lactated Ringers 1,000 ML IV ONE (15:27)
[2020-06-12] MEDS ORDERED: Sodium Chloride 0.9% 1,000 ML IV SCH (15:30)
[2020-06-12] MEDS ORDERED: Sodium Chloride 0.9% 10 ML Syringe FLUSH PRN (15:35)
--- NOTE | 2020-06-12 15:41 | EDM.PDOC ---
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 the time), kidney bled intraop and surgeon used his hand to stop bleeding resulting in an intra- abd hernia repaired later, "lot of scarring" pain all day, no relief, getting worse, took no meds worked at [employer], some N, had "dry heaves" 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 ate piece pizza at 8:30 altho not hungry, did not affect the pain no lunch little fluids no f/c/d L abdomen radiating into back, abdomen & groin Pain Score (Numeric/FACES): 9 - Related Data Allergies Allergy/AdvReac Type Severity Reaction Status Date / Time No Known Allergies Allergy Verified 03/06/20 07:37 Home Meds: Home Meds Topiramate 75 mg PO BEDTIME 04/05/18 [History] amLODIPine Besylate [Amlodipine Besylate] 10 mg PO BEDTIME 04/05/18 [History] FLUoxetine HCl [Fluoxetine HCl] 20 mg PO BEDTIME 10/23/18 [History] Omeprazole 20 mg PO BEDTIME 12/21/18 [History] .Hydrochlorot 25 mg PO DAILY 03/06/20 [History] Acetaminophen/oxyCODONE [Percocet 325-5 MG] 1 - 2 tab PO Q6H PRN #8 tab 03/06/20 [Rx] Acetaminophen/oxyCODONE [Percocet 325-5 MG] 1 each PO Q4H PRN #10 tab 03/25/20 [Rx] Ondansetron [Zofran ODT] 4 mg PO Q4H PRN #5 tab.dis 03/25/20 [Rx] Tamsulosin HCl [Flomax] 0.4 mg PO DAILY #10 cap.er.24h 03/25/20 [Rx] Dicyclomine HCl [Bentyl] 10 mg PO TID #21 capsule 06/12/20 [Rx] Gabapentin [Neurontin] 100 mg PO TID #21 capsule 06/12/20 [Rx] oxyCODONE HCl/Acetaminophen [Endocet 5-325 Tablet] 1 each PO Q3H PRN #15 tablet 06/12/20 [Rx] Past Medical History HEENT History: Reports: Other (See Below) Other HEENT History: hx eye ulcer in past Cardiovascular History: Reports: Hypertension Respiratory History: Reports: Other (See Below) Other Respiratory History: BROCHITIS Gastrointestinal History: Reports: Bowel Obstruction, GERD Other Gastrointestinal History: 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 No surgery done. Genitourinary History: Reports: Renal Calculus Other Genitourinary History: renal cell CA R kidney Musculoskeletal History: Reports: Back Pain, Chronic, Fracture, Other (See Below) Other Musculoskeletal History: hx fx L tib fib, L arm, R arm, ribs, compression fx to back, bilat wrist fx Neurological History: Reports: Migraines Psychiatric History: Reports: Depression Other Psychiatric History: treated w/prozac daily Hematologic History: Reports: Anesthesia Reaction, Blood Transfusion(s) Other Hematologic History: states coma X4 days s/p rt incisional hernia repair, had Pulmonary edema s/p. Oncologic (Cancer) History: Reports: Renal Other Oncologic History: Renal cell Carcinoma 3 yrs ago. - Infectious Disease History Infectious Disease History: Reports: Shingles - Past Surgical History HEENT Surgical History: Reports: Adenoidectomy, Tonsillectomy Cardiovascular Surgical History: Reports: None Respiratory Surgical History: Reports: None GI Surgical History: Reports: Appendectomy, Colonoscopy, EGD, Hernia, Abdominal Male Surgical History: Reports: Nephrectomy Other Male Surgeries/Procedures: partial R kidney nephrectomy Neurological Surgical History: Reports: None Musculoskeletal Surgical History: Reports: ORIF, Shoulder Surgery Other Musculoskeletal Surgeries/Procedures:: bilat elbow surg, 7 R shoulder s urg, Oncologic Surgical History: Reports: Other (See Below) Other Oncologic Surgeries/Procedures: R partial nephrectomy Social & Family History - Family History Family Medical History: No Pertinent Family History - Caffeine Use Caffeine Use: Reports: Soda Other Caffeine Use: mountain dew. Caffeine Use Comment: soda 1.5 liters daily. - Living Situation & Occupation Living situation: Reports: Occupation: Employed (Works at a local [employer]) ED ROS GENERAL - Review of Systems Review Of Systems: See Below Constitutional: Reports: No Symptoms HEENT: Reports: No Symptoms Respiratory: Reports: No Symptoms Cardiovascular: Reports: No Symptoms Endocrine: Reports: No Symptoms GI/Abdominal: Reports: Abdominal Pain, Nausea, Vomiting : Reports: No Symptoms Musculoskeletal: Reports: No Symptoms Skin: Reports: No Symptoms Neurological: Reports: No Symptoms Psychiatric: Reports: No Symptoms Hematologic/Lymphatic: Reports: No Symptoms Immunologic: Reports: No Symptoms ED EXAM, GI/ABD - Physical Exam Exam: See Below Exam Limited By: No Limitations General Appearance: Alert, WD/WN, Other (sitting on edge of bed, alert, moves easily, nontoxic, nonill) Nose: Normal Inspection Throat/Mouth: Normal Inspection Head: Atraumatic, Normocephalic Neck: Normal Inspection, Supple, Non-Tender Respiratory/Chest: No Respiratory Distress, Lungs Clear Cardiovascular: Regular Rate, Rhythm GI/Abdominal Exam: Other (scar in RLQ, 1-2+ tender at R mid-inguinal area, no CVAT b/l, flanks NT, NT elsewhere in abd including LLQ and L flank, nl BS x 4, ND) Extremities: Normal Inspection, Non-Tender, No Pedal Edema Neurological: Alert, Oriented, CN II-XII Intact, Normal Cognition, No Motor/Sensory Deficits Psychiatric: Normal Affect, Normal Mood Skin Exam: Warm, Dry, Intact, Normal Color, No Rash Lymphatic: No Adenopathy Course - Vital Signs Last Recorded V/S: Last Vital Signs Temp 36.5 C 06/12/20 15:22 Pulse 105 H 06/12/20 15:22 Resp 18 06/12/20 15:22 BP 150/99 H 06/12/20 15:22 Pulse Ox 98 06/12/20 15:22 - Orders/Labs/Meds Orders: Active Orders 24 hr Category Date Time Status Abdomen Pelvis wo Cont [CT] Stat Exams 06/12/20 15:22 Taken Sodium Chloride 0.9% [Normal Saline] 1,000 ml Med 06/12/20 15:30 Active IV ASDIRECTED Sodium Chloride 0.9% [Saline Flush] Med 06/12/20 15:35 Active 10 ml FLUSH ASDIRECTED PRN Medication Orders Sodium Chloride (Normal Saline) 1,000 mls @ 999 mls/hr IV ASDIRECTED NIRU Sodium Chloride (Sodium Chloride 0.9% 10 Ml Syringe) 10 ml FLUSH ASDIRECTED PRN PRN Reason: IV Use Last Admin: 06/12/20 15:35 Dose: 10 ml Documented by: LUPILLO Labs: Laboratory Tests 06/12/20 06/12/20 06/12/20 Range/Units 15:45 15:45 16:30 WBC 11.8 H (3.2-10.1) x10-3/uL RBC 5.60 (3.90-5.90) x10(6)uL Hgb 16.4 (12.9-17.7) g/dL Hct 47.4 (38.3-50.1) % MCV 84.5 (80.8-98.7) fL MCH 29.2 (27.0-33.3) pg MCHC 34.6 (28.7-35.3) g/dL RDW 14.7 (12.4-15.0) % Plt Count 179 (117-477) x10(3)uL MPV 8.6 (6.7-11.0) fL Neut % (Auto) 77.9 H (40.3-71.8) % Lymph % (Auto) 13.9 L (15.8-45.3) % [place] % (Auto) 6.6 (5.5-15.2) % Eos % (Auto) 1.0 (0.1-6.8) % Baso % (Auto) 0.6 (0.3-3.8) % Neut # (Auto) 9.2 H (1.7-6.9) x10-3/uL Lymph # (Auto) 1.6 (0.5-4.5) x10-3/uL [place] # (Auto) 0.8 (0.0-1.2) x10-3/uL Eos # (Auto) 0.1 (0.0-0.6) x10-3/uL Baso # (Auto) 0.1 (0.0-0.3) x10-3/uL Sodium 138 (135-145) mmol/L Potassium 4.0 (3.5-5.3) mmol/L Chloride 102 (100-110) mmol/L Carbon Dioxide 24 (21-32) mmol/L BUN 19 H (7-18) mg/dL Creatinine 1.9 H (0.70-1.30) mg/dL Est Cr Clr Drug Dosing TNP Estimated GFR (MDRD) 38 L (>60) BUN/Creatinine Ratio 10.0 (9-20) Glucose 122 H (80-116) mg/dL Calcium 8.5 L (8.6-10.2) mg/dL Total Bilirubin 0.5 (0.1-1.3) mg/dL AST 19 D (5-25) IU/L ALT 29 D (12-36) U/L Alkaline Phosphatase 86 (56-112) IU/L Total Protein 7.5 (6.0-8.0) g/dL Albumin 3.8 (3.5-5.2) g/dL Globulin 3.7 g/dL Albumin/Globulin Ratio 1.0 Urine Color Yellow (YELLOW) Urine Appearance Clear (CLEAR) Urine pH 5.0 (5.0-6.5) Ur Specific [place] 1.020 (1.010-1.025) Urine Protein Negative (NEGATIVE) mg/dL Urine Glucose (UA) Normal (NORMAL) mg/dL Urine Ketones Negative (NEGATIVE) mg/dL Urine Occult Blood Negative (NEGATIVE) Urine Nitrite Negative (NEGATIVE) Urine Bilirubin Negative (NEGATIVE) Urine Urobilinogen Normal (NEGATIVE) mg/dL Ur Leukocyte Esterase Negative (NEGATIVE) Urine RBC 0-5 (0-5) Urine WBC 0-5 (0-5) Ur Epithelial Cells Occasional Urine Bacteria Not seen (NS) Meds: Medications Generic Name Dose Route Start Last Admin Trade Name Freq PRN Reason Stop Dose Admin Sodium Chloride 1,000 mls @ 999 mls/hr 06/12/20 15:30 Normal Saline IV ASDIRECTED NIRU Sodium Chloride 10 ml 06/12/20 15:35 06/12/20 15:35 Sodium Chloride 0.9% 10 Ml Syringe FLUSH 10 ml ASDIRECTED PRN Administration IV Use Discontinued Medications Generic Name Dose Route Start Last Admin Trade Name Freq PRN Reason Stop Dose Admin Hydromorphone HCl 0.5 mg 06/12/20 15:42 06/12/20 16:43 Hydromorphone 2 Mg/Ml Sdv IVPUSH 06/12/20 15:43 0.5 mg ONETIME ONE Administration Lactated Ringer's 1,000 mls @ 999 mls/hr 06/12/20 15:27 06/12/20 15:40 Ringers, Lactated IV 06/12/20 16:27 999 mls/hr BOLUS ONE Administration Ketorolac Tromethamine 30 mg 06/12/20 15:26 06/12/20 15:37 Ketorolac 30 Mg/Ml Sdv IVPUSH 06/12/20 15:27 30 mg ONETIME ONE Administration Ondansetron HCl 4 mg 06/12/20 15:25 06/12/20 16:35 Ondansetron 4 Mg/2 Ml Sdv IVPUSH 06/12/20 15:26 4 mg ONETIME ONE Administration - Re-Assessments/Exams Free Text/Narrative Re-Assessment/Exam: 06/12/20 17:38 CT without obstuction of the ureter or bowel. On repeat exam pt had inc'd tender at LLQ in mid inguinal line to deeper palpation. mild increase WBC and glucose c/w pain partial response to Toradol 30 mg IV and Dilaudid 0.5 mg IV, then pain came back and pt was wincing, given Dilaudid 1 mg IV prior to d/c pt likely with pinched peritoneum from adhesions, ureteral stone less likely based on hx/PE/imaging/labs Departure - Departure Time of Disposition: 17:34 Disposition: Home, Self-Care 01 Condition: Good Clinical Impression: Peritoneal adhesions, Mild dehydration - Discharge Information *PRESCRIPTION DRUG MONITORING PROGRAM REVIEWED*: Yes *COPY OF PRESCRIPTION DRUG MONITORING REPORT IN PATIENT JAM: No Prescriptions: Dicyclomine HCl [Bentyl] 10 mg PO TID #21 capsule oxyCODONE HCl/Acetaminophen [Endocet 5-325 Tablet] 1 each PO Q3H PRN #15 tablet PRN Reason: Pain Gabapentin [Neurontin] 100 mg PO TID #21 capsule Instructions: Adhesions, Rehydration, Adult Additional Instructions: For spasm, take dicyclomine 10 mg 1 capsule 3 times a day for 2 days, longer if needed. For pinched nerve pain, take gabapentin 100 mg 1 capsule 3 times a day for 2 days, longer if needed. For pain, take ibuprofen 200 mg 3 tabs 3 times a day for 2 days. For pain, take oxycodone with acetaminophen 5/325 mg 1 tab every 3 hours as needed. No alcohol. For nausea, use the nausea pills that you have at home as needed. Avoid heavy or fatty foods today. Eat a softer diet in smaller quantities. Increase fluids. FSee your physician in 3-4 days for further recommendations. Call or return to Emergency Department if you are feeling worse. Sepsis Event Note (ED) - Focused Exam Vital Signs: Vital Signs Temp Pulse Resp BP Pulse Ox 06/12/20 15:22 36.5 C 105 H 18 150/99 H 98 - My Orders Last 24 Hours: My Active Orders 06/12/20 15:22 Abdomen Pelvis wo Cont [CT] Stat 06/12/20 15:30 Sodium Chloride 0.9% [Normal Saline] 1,000 ml IV ASDIRECTED 06/12/20 15:35 Sodium Chloride 0.9% [Saline Flush] 10 ml FLUSH ASDIRECTED PRN - Assessment/Plan Last 24 Hours: My Active Orders 06/12/20 15:22 Abdomen Pelvis wo Cont [CT] Stat 06/12/20 15:30 Sodium Chloride 0.9% [Normal Saline] 1,000 ml IV ASDIRECTED 06/12/20 15:35 Sodium Chloride 0.9% [Saline Flush] 10 ml FLUSH ASDIRECTED PRN
[2020-06-12] MEDS ORDERED: HYDROmorphone 2 MG/ML SDV IVPUSH ONE ×2 (15:42→17:26)
--- NOTE | 2020-06-12 17:23 | CT ---
INDICATION: Lower abdominal, left groin and left flank pain. Tender right lower quadrant. History of partial nephrectomy on the right for renal cell CA 3 years prior. History of renal calculi. CT ABDOMEN AND PELVIS WITHOUT CONTRAST: Spiral 2.5 mm axial sections were obtained through the abdomen and pelvis with sagittal and coronal reconstructions 06/12/20 and compared with 03/06/20. Total exam DLP was 1176.29 mGy-cm. The lower lung elise and pleural spaces visualized show no evidence of an active infiltrate or effusion. The heart did not appear enlarged. No pericardial effusion was seen. The liver, spleen, pancreas and adrenal glands appeared normal. Calcifications are noted in the gallbladder suggesting gravel within the gallbladder which could be confirmed by ultrasound as necessary. Evidence of previous surgery is noted at the lower pole of the right kidney. Renal calcinosis is noted with multiple tiny calcifications scattered in both kidneys. Renal cortical scarring is noted. No evidence of obstructive uropathy was seen. No pyelocaliectasis or ureterectasis was noted. No retroperitoneal mass was seen. Retroperitoneal lymphadenopathy is minimal and nonspecific, as previously. The appendix is absent, compatible with history of its removal. No evidence of bowel obstruction or free air was seen. The prostate was not grossly enlarged. Slight thickening of the wall of the urinary bladder is suggested, which could be on the basis of cystitis, but should be correlated clinically. Decreased disk space with grade 1 retrolisthesis is noted at L4-5, similar to the previous examination. There appears to be a minimal amount of fluid anterior to the rectosigmoid which was not present on the previous study. This raises question of an inflammatory process or other abnormality in the abdomen/pelvis. This finding should be correlated clinically. IMPRESSION: 1. Renal calcinosis. No obstructive uropathy. Renal cortical scarring. Postsurgical lower pole right kidney 2. Degenerative disk disease with retrolisthesis grade 1 @ L4-5. 3. Probable cholelithiasis - ultrasound would be confirmatory. 4. Small amount of free fluid is noted anterior to the rectosigmoid just above the rectum in the lower pelvis - etiology indeterminate. 5. Suggestion of mild thickening of the wall of the urinary bladder which could be on the basis of mild degree of cystitis and should be correlated clinically. 6. Postappendectomy. Report was called to Dr. Cunningham at 1619 hours. [facility]
[2020-06-12] MEDS ORDERED: Dicyclomine 10 MG Cap PO ONE (17:25)
[2020-06-12 20:09] VITALS: BP 139/90; PULSE 84
== END 2020-06-12 18:03 | disposition home or self-care (01) ==
LOC: FB.ED 15:06
DX: K66.0 Peritoneal adhesions (postprocedural) (postinfection) (principal); E86.0 Dehydration; I10 Essential (primary) hypertension; K21.9 Gastro-esophageal reflux disease without esophagitis; Z79.899 Other long term (current) drug therapy
CPT/HCPCS: 36415; 74176; 80053; 81001; 85025; 96374; 96375; 96376; 99284; A9270; J1170; J1885; J2405; J7120

== ENCOUNTER 2020-08-17 23:35 | Emergency (ER) | payer BC, MEDICAID ==
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
[2020-08-18] MEDS: Ketorolac 30 MG/ML SDV IM ONE (00:15)
[2020-08-18 01:34] VITALS: BP 128/84; PULSE 93
== END 2020-08-18 02:15 | disposition home or self-care (01) ==
LOC: FB.ED 23:35
DX: S93.401A Sprain of unspecified ligament of right ankle, initial encounter (principal); I10 Essential (primary) hypertension; K21.9 Gastro-esophageal reflux disease without esophagitis; E66.9 Obesity, unspecified; Z68.42 Body mass index [BMI] 45.0-49.9, adult; X50.1XXA Overexertion from prolonged static or awkward postures, initial encounter
CPT/HCPCS: 73610-RT; 96372; 99283-25; J1885

== ENCOUNTER 2020-10-06 09:28 | Emergency (ER) | payer BC, MEDICAID ==
[2020-10-06] MEDS ORDERED: Morphine 2 MG/ML SYRINGE IVPUSH STA ×2 (10:13→12:27)
[2020-10-06] MEDS ORDERED: Ketorolac 30 MG/ML SDV IVPUSH STA (10:13)
[2020-10-06] MEDS ORDERED: Sodium Chloride 0.9% 10 ML Syringe FLUSH PRN (10:13)
[2020-10-06] MEDS ORDERED: Sodium Chloride 0.9% 1,000 ML IV SCH (10:15)
[2020-10-06] MEDS ORDERED: Ondansetron 4 MG/2 ML SDV IVPUSH STA (10:15)
--- NOTE | 2020-10-06 12:30 | EDM.PDOC ---
ED HPI GENERAL MEDICAL PROBLEM - General Chief Complaint: Flank Pain Stated Complaint: PAIN IN LOWER BACK TO GROIN Time Seen by Provider: 10/06/20 09:50 Source of Information: Reports: Patient History Limitations: Reports: No Limitations - History of Present Illness INITIAL COMMENTS - FREE TEXT/NARRATIVE: Patient presented to the ED because of leb back pack pain and left flnak pain which started last night and got worse this morning. The pain is sharp, 10/10 radiating to the LLQ and left grpoin. There is nausea but no vomiting. There is no fever, chills, cough/cold symptoms. No urinary symptoms. He has a history of kidney stones which he spontaneously passed. L flank radiating into L lower abdomen Pain Score (Numeric/FACES): 10 - Related Data Allergies Allergy/AdvReac Type Severity Reaction Status Date / Time No Known Allergies Allergy Verified 10/06/20 09:50 Home Meds: Home Meds Topiramate 75 mg PO BEDTIME 04/05/18 [History] FLUoxetine HCl [Fluoxetine HCl] 20 mg PO BEDTIME 10/23/18 [History] Omeprazole 20 mg PO BEDTIME 12/21/18 [History] .Hydrochlorot 25 mg PO DAILY 03/06/20 [History] Ondansetron [Zofran ODT] 4 mg PO Q4H PRN #5 tab.dis 03/25/20 [Rx] Gabapentin [Neurontin] 100 mg PO TID #21 capsule 06/12/20 [Rx] Verapamil [Verapamil SR (24 Hr)] 180 mg PO BEDTIME 06/12/20 [History] Cholecalciferol (Vitamin D3) [Vitamin D3] 1,000 unit PO BEDTIME 10/06/20 [History] Magnesium Oxide [Magnesium] 500 mg PO BEDTIME 10/06/20 [History] Ondansetron [Zofran ODT] 4 mg PO Q4H PRN #5 tab.dis 10/06/20 [Rx] Potassium Citrate 10 meq PO BID 10/06/20 [History] oxyCODONE HCl/Acetaminophen [Oxycodone-Acetaminophen 5-325] 1 each PO Q4H #15 tablet 10/06/20 [Rx] oxyCODONE HCl/Acetaminophen [Percocet 2.5-325 mg Tablet] 1 each PO Q4H PRN #10 tablet 10/06/20 [Rx] Past Medical History HEENT History: Reports: Other (See Below) Other HEENT History: hx eye ulcer in past Cardiovascular History: Reports: Hypertension Respiratory History: Reports: Other (See Below) Other Respiratory History: BRONCHITIS Gastrointestinal History: Reports: Bowel Obstruction, GERD Other Gastrointestinal History: 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 No surgery done. Genitourinary History: Reports: Renal Calculus Other Genitourinary History: renal cell CA R kidney Musculoskeletal History: Reports: Back Pain, Chronic, Fracture, Other (See Below) Other Musculoskeletal History: hx fx L tib fib, L arm, R arm, ribs, compression fx to back, bilat wrist fx Neurological History: Reports: Migraines Psychiatric History: Reports: Depression Other Psychiatric History: treated w/prozac daily Endocrine/Metabolic History: Reports: Obesity/BMI 30+ Hematologic History: Reports: Anesthesia Reaction, Blood Transfusion(s) Other Hematologic History: states coma X4 days s/p rt incisional hernia repair, had Pulmonary edema s/p. Oncologic (Cancer) History: Reports: Renal Other Oncologic History: Renal cell Carcinoma 3 yrs ago. - Infectious Disease History Infectious Disease History: Reports: Shingles - Past Surgical History HEENT Surgical History: Reports: Adenoidectomy, Tonsillectomy Cardiovascular Surgical History: Reports: None Respiratory Surgical History: Reports: None GI Surgical History: Reports: Appendectomy, Colonoscopy, EGD, Hernia, Abdominal Male Surgical History: Reports: Nephrectomy Other Male Surgeries/Procedures: partial R kidney nephrectomy Neurological Surgical History: Reports: None Musculoskeletal Surgical History: Reports: ORIF, Shoulder Surgery Other Musculoskeletal Surgeries/Procedures:: bilat elbow surg, 7 R shoulder surg, Oncologic Surgical History: Reports: Other (See Below) Other Oncologic Surgeries/Procedures: R partial nephrectomy Social & Family History - Family History Family Medical History: No Pertinent Family History - Caffeine Use Caffeine Use: Reports: Soda Other Caffeine Use: mountain dew. 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) ED ROS GENERAL - Review of Systems Review Of Systems: See Below Constitutional: Reports: No Symptoms HEENT: Reports: No Symptoms Respiratory: Reports: No Symptoms Cardiovascular: Reports: No Symptoms Endocrine: Reports: No Symptoms GI/Abdominal: Reports: No Symptoms : Reports: Flank Pain Musculoskeletal: Reports: Back Pain Skin: Reports: No Symptoms Neurological: Reports: No Symptoms Psychiatric: Reports: No Symptoms Hematologic/Lymphatic: Reports: No Symptoms ED EXAM, GI/ABD - Physical Exam Exam: See Below Exam Limited By: No Limitations General Appearance: Alert, No Apparent Distress Ears: Normal External Exam, Normal Canal Nose: Normal Inspection, Normal Mucosa, No Blood Throat/Mouth: Normal Inspection, Normal Lips, Normal Teeth Head: Atraumatic, Normocephalic Neck: Normal Inspection, Supple, Non-Tender, Full Range of Motion Respiratory/Chest: No Respiratory Distress, Lungs Clear, Normal Breath Sounds, No Accessory Muscle Use, Chest Non-Tender Cardiovascular: Normal Peripheral Pulses, Regular Rate, Rhythm, No Edema, No Gallop, No JVD, No Murmur, No Rub GI/Abdominal Exam: Normal Bowel Sounds, Soft, Other (Left CVAT) Back Exam: Normal Inspection, Muscle Spasm, Vertebral Tenderness Extremities: Normal Inspection Neurological: Alert, Oriented, CN II-XII Intact, Normal Cognition, Normal Gait Psychiatric: Normal Affect Course - Vital Signs Text/Narrative:: Lab/CT abd-pelvis result was reviewed and discussed with patient NS 1 L bolus Zofran 4 mg IV x1 Toradol 30 mg IV x1 Morphine 2 mg IV x2 doses Fentanyl 50 mcg IV x1 Last Recorded V/S: Last Vital Signs Temp 36.9 C 10/06/20 09:45 Pulse 87 10/06/20 09:45 Resp 18 10/06/20 09:45 BP 142/94 H 10/06/20 09:45 Pulse Ox 98 10/06/20 09:45 - Orders/Labs/Meds Orders: Active Orders 24 hr Category Date Time Status Saline Lock Insert [OM.PC] Routine Oth 10/06/20 10:13 Ordered Labs: Laboratory Tests 10/06/20 10/06/20 10/06/20 Range/Units 10:15 10:15 10:38 WBC 8.3 (3.2-10.1) x10-3/uL RBC 4.67 (3.90-5.90) x10(6)uL Hgb 13.5 (12.9-17.7) g/dL Hct 38.8 (38.3-50.1) % MCV 83.0 (80.8-98.7) fL MCH 28.9 (27.0-33.3) pg MCHC 34.8 (28.7-35.3) g/dL RDW 14.1 (12.4-15.0) % Plt Count 184 (117-477) x10(3)uL MPV 7.8 (6.7-11.0) fL Neut % (Auto) 74.1 H (40.3-71.8) % Lymph % (Auto) 16.7 (15.8-45.3) % [place] % (Auto) 6.7 (5.5-15.2) % Eos % (Auto) 1.9 (0.1-6.8) % Baso % (Auto) 0.6 (0.3-3.8) % Neut # (Auto) 6.1 (1.7-6.9) x10-3/uL Lymph # (Auto) 1.4 (0.5-4.5) x10-3/uL [place] # (Auto) 0.6 (0.0-1.2) x10-3/uL Eos # (Auto) 0.2 (0.0-0.6) x10-3/uL Baso # (Auto) 0.1 (0.0-0.3) x10-3/uL Sodium 143 (135-145) mmol/L Potassium 4.6 (3.5-5.3) mmol/L Chloride 108 D (100-110) mmol/L Carbon Dioxide 25 (21-32) mmol/L BUN 20 H (7-18) mg/dL Creatinine 1.7 H (0.70-1.30) mg/dL Est Cr Clr Drug Dosing TNP Estimated GFR (MDRD) 44 L (>60) BUN/Creatinine Ratio 11.8 (9-20) Glucose 91 (80-116) mg/dL Calcium 8.3 L (8.6-10.2) mg/dL Urine Color Yellow (YELLOW) Urine Appearance Clear (CLEAR) Urine pH 6.0 (5.0-6.5) Ur Specific [place] 1.000 L (1.010-1.025) Urine Protein Negative (NEGATIVE) mg/dL Urine Glucose (UA) Normal (NORMAL) mg/dL Urine Ketones Negative (NEGATIVE) mg/dL Urine Occult Blood Negative (NEGATIVE) Urine Nitrite Negative (NEGATIVE) Urine Bilirubin Negative (NEGATIVE) Urine Urobilinogen Normal (NEGATIVE) mg/dL Ur Leukocyte Esterase Negative (NEGATIVE) Urine WBC 0-5 (0-5) Ur Squamous Epith Cells Occasional (NS,R,O) Urine Bacteria Occasional H (NS) Meds: Medications Discontinued Medications Generic Name Dose Route Start Last Admin Trade Name Freq PRN Reason Stop Dose Admin Fentanyl 50 mcg 10/06/20 13:27 10/06/20 13:43 Fentanyl 100 Mcg/2 Ml Sdv IVPUSH 10/06/20 13:28 50 mcg NOW STA Administration Sodium Chloride 1,000 mls @ 999 mls/hr 10/06/20 10:15 10/06/20 11:00 Normal Saline IV 999 mls/hr ASDIRECTED NIRU Administration Ketorolac Tromethamine 30 mg 10/06/20 10:13 10/06/20 20:35 Ketorolac 30 Mg/Ml Sdv IVPUSH 10/06/20 10:14 30 mg NOW STA Administration Morphine Sulfate 2 mg 10/06/20 10:13 10/06/20 11:05 Morphine 2 Mg/Ml Syringe IVPUSH 10/06/20 10:14 2 mg NOW STA Administration Morphine Sulfate 2 mg 10/06/20 12:27 10/06/20 12:36 Morphine 2 Mg/Ml Syringe IVPUSH 10/06/20 12:28 2 mg NOW STA Administration Ondansetron HCl 4 mg 10/06/20 10:15 10/06/20 11:00 Ondansetron 4 Mg/2 Ml Sdv IVPUSH 10/06/20 10:16 4 mg NOW STA Administration Sodium Chloride 10 ml 10/06/20 10:13 10/06/20 11:00 Sodium Chloride 0.9% 10 Ml Syringe FLUSH 10 ml ASDIRECTED PRN Administration Keep Vein Open Departure - Departure Time of Disposition: 12:30 Disposition: Home, Self-Care 01 Condition: Good Clinical Impression: Chronic nephrocalcinosis, Nephrolithiasis, CKD (chronic kidney disease) - Discharge Information Prescriptions: oxyCODONE HCl/Acetaminophen [Oxycodone-Acetaminophen 5-325] 1 each PO Q4H #15 tablet oxyCODONE HCl/Acetaminophen [Percocet 2.5-325 mg Tablet] 1 each PO Q4H PRN #10 tablet PRN Reason: Pain Ondansetron [Zofran ODT] 4 mg PO Q4H PRN #5 tab.dis PRN Reason: Nausea Instructions: Renal Colic, [id number], Kidney Stones, [id number] Referrals: Srinivas Garzon MD [Primary Care Provider] - Forms: ED Department Discharge Additional Instructions: Please read discharge instructions on Nephrocalcinosis and Kidney stones Drink 2-4 liters of water daily, avoid pop Percocet 5 mg, 1-2 tablets every 4-6 hours as needed for pain Follow up his week - My Orders Last 24 Hours: My Active Orders 10/06/20 10:13 Saline Lock Insert [OM.PC] Routine - Assessment/Plan Last 24 Hours: My Active Orders 10/06/20 10:13 Saline Lock Insert [OM.PC] Routine
[2020-10-06] MEDS ORDERED: fentaNYL 100 MCG/2 ML SDV IVPUSH STA (13:27)
--- NOTE | 2020-10-06 13:39 | CT ---
INDICATION: Left flank pain, history of kidney stone. CT ABDOMEN AND PELVIS WITHOUT CONTRAST [id number]: Spiral 3.5 mm axial sections were obtained through the abdomen and pelvis without contrast - renal calculus protocol, with sagittal and coronal reconstructions 10/06/20 and compared with 06/12/20. Total exam DLP was 1259.41 mGy-cm. The lower lung elise and pleural spaces visualized appeared normal. The heart was normal in size. No pericardial effusion was seen. There appear to be some minimal calculi in the gallbladder, which could be confirmed by ultrasound as necessary. The adrenal glands and pancreas were unremarkable. The spleen appears similar in size to the previous study and appears mildly enlarged at approximately 15 cm maximum diameter, etiology indeterminate. Renal cortical scarring is suggested with numerous tiny calculi in the kidneys - renal calcinosis. Clips are noted at the lower pole of the right kidney compatible with partial nephrectomy history. No definite obstructive uropathy was seen. The possibility of pyelonephritis cannot be excluded, especially without IV contrast. Retroperitoneal lymphadenopathy is mild and nonspecific. The appendix is absent compatible with history of its removal. No evidence of free air or bowel obstruction was identified. The prostate is somewhat prominent. The urinary bladder was normal in appearance. There appears to be a hydrocele in the right scrotum. No definite mass lesions, organomegaly, or free fluid collections were noted in the abdomen or pelvis. IMPRESSION: 1. Renal cortical scarring and renal calcinosis without definite obstructive uropathy at this time. Cannot exclude pyelonephritis. 2. Splenomegaly similar to previous examination. 3. Cholelithiasis. 4. Post partial resection lower pole right kidney for renal CA. 5. Post appendectomy. 6. Mild prominence of the prostate. 7. Small amount of fluid anterior to the rectosigmoid on the previous examination is no longer visualized. Report was called to Dr. Gautam at 1218 hours, 10/06/20. [facility]
[2020-10-06 20:24] VITALS: BP 142/94; PULSE 87
== END 2020-10-06 14:10 | disposition home or self-care (01) ==
LOC: FB.ED 09:28
DX: N20.0 Calculus of kidney (principal); I12.9 Hypertensive chronic kidney disease with stage 1 through stage 4 chronic kidney disease, or unspecified chronic kidney disease; N18.9 Chronic kidney disease, unspecified; K21.9 Gastro-esophageal reflux disease without esophagitis; E66.9 Obesity, unspecified; Z68.31 Body mass index [BMI] 31.0-31.9, adult; Z79.899 Other long term (current) drug therapy
CPT/HCPCS: 36415; 74176; 80048; 81001; 85025; 96374; 96375; 96376; 99284; J1885; J2270; J2405; J3010; J7030

== ENCOUNTER 2020-12-28 16:56 | Emergency (ER) | payer BC, MEDICAID ==
[2020-12-28 17:12] VITALS: BP 174/108; PULSE 96
[2020-12-28] MEDS ORDERED: Ciprofloxacin 0.3% Ophth Soln 5 ML Bottle EYEBOTH SCH (17:30)
--- NOTE | 2020-12-28 17:38 | EDM.PDOC ---
ED HPI GENERAL MEDICAL PROBLEM - General Chief Complaint: Eye Problems Stated Complaint: BOTH EYES HURTING,RIGHT WORSE Time Seen by Provider: 12/28/20 17:10 Source of Information: Reports: Patient - History of Present Illness INITIAL COMMENTS - FREE TEXT/NARRATIVE: 45-year-old gentleman came to the emergency room for evaluation of bilateral eye pain, redness, discharge at the behest of his . He states that he wears contact lenses and put in a new set of contact lenses a few days ago and has been experiencing burning, discharge, and change in vision with photophobia. He remove that new set of contact lenses and rinsed his eyes with contact lens/eye machine rug cleaner. He states he has had some relief. Continues to have mild photophobia but does not have pain with extraocular muscle movements. Denies all other review of systems. - Related Data Allergies Allergy/AdvReac Type Severity Reaction Status Date / Time No Known Allergies Allergy Verified 10/06/20 09:50 Home Meds: Home Meds Topiramate 75 mg PO BEDTIME 04/05/18 [History] FLUoxetine HCl [Fluoxetine HCl] 20 mg PO BEDTIME 10/23/18 [History] Omeprazole 20 mg PO BEDTIME 12/21/18 [History] .Hydrochlorot 25 mg PO DAILY 03/06/20 [History] Ondansetron [Zofran ODT] 4 mg PO Q4H PRN #5 tab.dis 03/25/20 [Rx] Gabapentin [Neurontin] 100 mg PO TID #21 capsule 06/12/20 [Rx] Verapamil [Verapamil SR (24 Hr)] 180 mg PO BEDTIME 06/12/20 [History] Cholecalciferol (Vitamin D3) [Vitamin D3] 1,000 unit PO BEDTIME 10/06/20 [History] Magnesium Oxide [Magnesium] 500 mg PO BEDTIME 10/06/20 [History] Ondansetron [Zofran ODT] 4 mg PO Q4H PRN #5 tab.dis 10/06/20 [Rx] Potassium Citrate 10 meq PO BID 10/06/20 [History] oxyCODONE HCl/Acetaminophen [Oxycodone-Acetaminophen 5-325] 1 each PO Q4H #15 tablet 10/06/20 [Rx] oxyCODONE HCl/Acetaminophen [Percocet 2.5-325 mg Tablet] 1 each PO Q4H PRN #10 tablet 10/06/20 [Rx] Past Medical History HEENT History: Reports: Other (See Below) Other HEENT History: hx eye ulcer in past Cardiovascular History: Reports: Hypertension Respiratory History: Reports: Other (See Below) Other Respiratory History: BRONCHITIS Gastrointestinal History: Reports: Bowel Obstruction, GERD Other Gastrointestinal History: states has chronic bowel obstruction d/t scar tissue in abd. in hosp. No surgery done. Genitourinary History: Reports: Renal Calculus Other Genitourinary History: renal cell CA R kidney Musculoskeletal History: Reports: Back Pain, Chronic, Fracture, Other (See Below) Other Musculoskeletal History: hx fx L tib fib, L arm, R arm, ribs, compression fx to back, bilat wrist fx Neurological History: Reports: Migraines Psychiatric History: Reports: Depression Other Psychiatric History: treated w/prozac daily Endocrine/Metabolic History: Reports: Obesity/BMI 30+ Hematologic History: Reports: Anesthesia Reaction, Blood Transfusion(s) Other Hematologic History: states coma X4 days s/p rt incisional hernia repair, had Pulmonary edema s/p. Oncologic (Cancer) History: Reports: Renal Other Oncologic History: Renal cell Carcinoma 3 yrs ago. - Infectious Disease History Infectious Disease History: Reports: Shingles - Past Surgical History HEENT Surgical History: Reports: Adenoidectomy, Tonsillectomy Cardiovascular Surgical History: Reports: None Respiratory Surgical History: Reports: None GI Surgical History: Reports: Appendectomy, Colonoscopy, EGD, Hernia, Abdominal Male Surgical History: Reports: Nephrectomy Other Male Surgeries/Procedures: partial R kidney nephrectomy Neurological Surgical History: Reports: None Musculoskeletal Surgical History: Reports: ORIF, Shoulder Surgery Other Musculoskeletal Surgeries/Procedures:: bilat elbow surg, 7 R shoulder surg, Oncologic Surgical History: Reports: Other (See Below) Other Oncologic Surgeries/Procedures: R partial nephrectomy Social & Family History - Family History Family Medical History: No Pertinent Family History - Tobacco Use Tobacco Use Status *Q: Unknown Ever Used Tobacco - Caffeine Use Caffeine Use: Reports: Soda Other Caffeine Use: mountain dew. Caffeine Use Comment: 2 liters of pop/day - Living Situation & Occupation Living situation: Reports: Occupation: Employed (Works at a local [employer]) ED ROS GENERAL - Review of Systems Review Of Systems: See Below Constitutional: Reports: No Symptoms HEENT: Reports: Eye Discharge, Eye Pain Respiratory: Reports: No Symptoms Cardiovascular: Reports: No Symptoms Endocrine: Reports: No Symptoms GI/Abdominal: Reports: No Symptoms : Reports: No Symptoms Musculoskeletal: Reports: No Symptoms Skin: Reports: No Symptoms Neurological: Reports: No Symptoms Psychiatric: Reports: No Symptoms Hematologic/Lymphatic: Reports: No Symptoms Immunologic: Reports: No Symptoms ED EXAM GENERAL W FULL EYE - Physical Exam Exam: See Below Text/Narrative:: Visual inspection of the bilateral eyes shows mild scleral erythema with mild clear discharge and extraocular muscles are intact Exam Limited By: No Limitations General Appearance: Alert, WD/WN, No Apparent Distress Throat/Mouth: Normal Inspection Head: Atraumatic, Normocephalic Neck: Normal Inspection Respiratory/Chest: No Respiratory Distress, Lungs Clear Cardiovascular: Regular Rate, Rhythm GI/Abdominal: Normal Bowel Sounds, Soft, Non-Tender Back Exam: Normal Inspection Extremities: Normal Inspection Neurological: Alert, Oriented, CN II-XII Intact, Normal Cognition Psychiatric: Normal Affect, Normal Mood Skin Exam: Warm, Dry Course - Vital Signs Text/Narrative:: As stated in the HPI patient complains of eye pain, discharge, photophobia but does not have any significant change in pain with extraocular movements. That patient is hypertensive at this visit. He is on appropriate antihypertensive medications. He has significant chronic kidney disease and has been working to control his hypertension with his primary care physician. Last Recorded V/S: Last Vital Signs Temp 36.6 C 12/28/20 17:10 Pulse 96 12/28/20 17:10 Resp 16 12/28/20 17:10 BP 174/108 H 12/28/20 17:10 Pulse Ox 97 12/28/20 17:10 - Orders/Labs/Meds Orders: Active Orders 24 hr Category Date Time Status Ciprofloxacin [Ciloxan 0.3% Ophth Soln] Med 12/28/20 17:30 Ordered See Dose Instructions EYEBOTH Q4H Departure - Departure Time of Disposition: 17:43 Disposition: Home, Self-Care 01 Condition: Good Clinical Impression: Bacterial conjunctivitis of both eyes - Discharge Information *PRESCRIPTION DRUG MONITORING PROGRAM REVIEWED*: Not Applicable *COPY OF PRESCRIPTION DRUG MONITORING REPORT IN PATIENT JAM: Not Applicable Instructions: Bacterial Conjunctivitis, Adult, [id number] Referrals: Srinivas Garzon MD [Primary Care Provider] - Additional Instructions: I strongly encouraged the patient to follow-up with optometry and/or ophthalmology tomorrow and to refrain from wearing contact lenses until 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 Patient given ciprofloxacin ophthalmic drops instructed to place 1 drop in each eye every 4 hours. Patient instructed to alternate Tylenol and ibuprofen for pain control. Patient instructed to follow-up with his primary care physician for comorbidities including his chronic kidney disease and hypertension. Sepsis Event Note (ED) - Evaluation Sepsis Screening Result: No Definite Risk - Focused Exam Vital Signs: Vital Signs Temp Pulse Resp BP Pulse Ox 12/28/20 17:10 36.6 C 96 16 174/108 H 97 - My Orders Last 24 Hours: My Active Orders 12/28/20 17:30 Ciprofloxacin [Ciloxan 0.3% Ophth Soln] See Dose Instructions EYEBOTH Q4H - Assessment/Plan Last 24 Hours: My Active Orders 12/28/20 17:30 Ciprofloxacin [Ciloxan 0.3% Ophth Soln] See Dose Instructions EYEBOTH Q4H
== END 2020-12-28 17:57 | disposition home or self-care (01) ==
LOC: FB.ED 16:56
DX: H10.9 Unspecified conjunctivitis (principal); B96.89 Other specified bacterial agents as the cause of diseases classified elsewhere; K21.9 Gastro-esophageal reflux disease without esophagitis; I12.9 Hypertensive chronic kidney disease with stage 1 through stage 4 chronic kidney disease, or unspecified chronic kidney disease; N18.9 Chronic kidney disease, unspecified; E66.9 Obesity, unspecified; Z79.899 Other long term (current) drug therapy; Z68.31 Body mass index [BMI] 31.0-31.9, adult
CPT/HCPCS: 99283; A9270-GY

== ENCOUNTER 2021-01-24 22:11 | Emergency (ER) | payer BC, MEDICAID ==
--- NOTE | 2021-01-24 22:25 | EDM.PDOC ---
ED HPI GENERAL MEDICAL PROBLEM - General Stated Complaint: SOB Time Seen by Provider: 01/24/21 22:22 Source of Information: Reports: Patient History Limitations: Reports: No Limitations - History of Present Illness INITIAL COMMENTS - FREE TEXT/NARRATIVE: 45-year-old male who states that he has been "sick times the past 3 weeks" he reports that he has had a cough and some nasal congestion and sore throat. He states that initially he felt that it was just a cold and then his symptoms seem to get worse and over the past week he has been seen 3 times prior to today and he felt that his symptoms have gotten worse with each day. Primarily, he is complaining of a cough and some right sided rattling in his chest and some pain with cough. He has had some phlegm production. He does feel short of breath with activity and with the cough. His last evaluation, he was told that he had RSV and he was placed on prednisone 20 mg a day for 7 days and was also given an albuterol inhaler. He was given Tessalon Perles as well. He states that these really didn't nothing for his symptoms and his breathing does seem to be worse with activity and he is really getting no rest. No vomiting. No diarrhea. He had Covid about 9 weeks ago and he has tested twice at home over the past few days with home Covid tests and they were negative on both occasions. He has persisted with fevers. The pain in his chest is a sharp pain that is worse with cough and he would rated as a 7/10 when he coughs or sneezes and a 2/10 otherwise. He states that he feels miserable and he was not able to sleep tonight and that prompted him to come in for evaluation as well as the feeling of shortness of breath with any activity. There are no other associated signs or symptoms. There are no other modifying factors. Onset: Other (3 weeks ago) Duration: Getting Worse Location: Reports: Chest, Generalized Quality: Reports: Sharp (Sharp pain in his chest and aching pain else worse.) Improves with: Reports: Rest Worsens with: Reports: Other (Cough. Activity.) Context: Reports: Other (As above.) Associated Symptoms: Reports: No Other Symptoms (Except as above.) Treatments SERVICE MEMBER: Reports: Other Medication(s) (Current medications) Right Upper Chest Pain Score (Numeric/FACES): 7 - Related Data Allergies Allergy/AdvReac Type Severity Reaction Status Date / Time No Known Allergies Allergy Verified 10/06/20 09:50 Home Meds: Home Meds Topiramate 75 mg PO BEDTIME 04/05/18 [History] FLUoxetine HCl [Fluoxetine HCl] 20 mg PO BEDTIME 10/23/18 [History] Omeprazole 20 mg PO BEDTIME 12/21/18 [History] Gabapentin [Neurontin] 100 mg PO TID #21 capsule 06/12/20 [Rx] Verapamil [Verapamil SR (24 Hr)] 180 mg PO BEDTIME 06/12/20 [History] Cholecalciferol (Vitamin D3) [Vitamin D3] 1,000 unit PO BEDTIME 10/06/20 [History] Magnesium Oxide [Magnesium] 500 mg PO BEDTIME 10/06/20 [History] Potassium Citrate 10 meq PO BID 10/06/20 [History] Albuterol Sulfate [Albuterol Sulfate Hfa] 2 puff INH ASDIRECTED PRN 01/24/21 [History] Benzonatate [Tessalon Perles] 200 mg PO TID PRN 01/24/21 [History] Metoprolol Succinate 25 mg PO BEDTIME 01/24/21 [History] Rizatriptan Benzoate [Rizatriptan] 5 mg PO BEDTIME 01/24/21 [History] amLODIPine Besylate [Amlodipine Besylate] 10 mg PO DAILY 01/24/21 [History] predniSONE [Prednisone] 20 mg PO DAILY 01/24/21 [History] ursodioL [Ursodiol] 300 mg PO TID 01/24/21 [History] Acetaminophen/HYDROcodone [HYDROcodone-Acetaminophen 5-325 MG *] 1 tab PO Q6H PRN #10 each 01/25/21 [Rx] Albuterol [Proventil Neb Soln] 2.5 mg NEB Q4H PRN #1 box 01/25/21 [Rx] Azithromycin [Zithromax] 500 mg PO DAILY #4 tab 01/25/21 [Rx] predniSONE [Prednisone] 60 mg PO DAILY 5 Days #15 tablet 01/25/21 [Rx] Past Medical History HEENT History: Reports: Other (See Below) Other HEENT History: hx eye ulcer in past Cardiovascular History: Reports: Hypertension Respiratory History: Reports: Other (See Below) Other Respiratory History: BRONCHITIS Gastrointestinal History: Reports: Bowel Obstruction, GERD Other Gastrointestinal History: states has chronic bowel obstruction d/t scar tissue in abd. in hosp. No surgery done. Genitourinary History: Reports: Renal Calculus Other Genitourinary History: renal cell CA R kidney Musculoskeletal History: Reports: Back Pain, Chronic, Fracture, Other (See Below) Other Musculoskeletal History: hx fx L tib fib, L arm, R arm, ribs, compression fx to back, bilat wrist fx Neurological History: Reports: Migraines Psychiatric History: Reports: Depression Other Psychiatric History: treated w/prozac daily Endocrine/Metabolic History: Reports: Obesity/BMI 30+ Hematologic History: Reports: Anesthesia Reaction, Blood Transfusion(s) Other Hematologic History: states coma X4 days s/p rt incisional hernia repair, had Pulmonary edema s/p. Oncologic (Cancer) History: Reports: Renal Other Oncologic History: Renal cell Carcinoma 3 yrs ago. - Infectious Disease History Infectious Disease History: Reports: Shingles - Past Surgical History HEENT Surgical History: Reports: Adenoidectomy, Tonsillectomy GI Surgical History: Reports: Appendectomy, Colonoscopy, EGD, Hernia, Abdominal Male Surgical History: Reports: Nephrectomy Other Male Surgeries/Procedures: partial R kidney nephrectomy Musculoskeletal Surgical History: Reports: ORIF, Shoulder Surgery Other Musculoskeletal Surgeries/Procedures:: bilat elbow surg, 7 R shoulder surg, Oncologic Surgical History: Reports: Other (See Below) Other Oncologic Surgeries/Procedures: R partial nephrectomy Social & Family History - Family History Family Medical History: No Pertinent Family History - Tobacco Use Tobacco Use Status *Q: Unknown Ever Used Tobacco (Nonsmoker) - Caffeine Use Caffeine Use: Reports: Soda Other Caffeine Use: mountain dew. 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 Denies: Eye Pain, Throat Swelling Respiratory: Reports: Shortness of Breath, Cough, Sputum Cardiovascular: Reports: Chest Pain, Dyspnea on Exertion, Lightheadedness Endocrine: Reports: Fatigue GI/Abdominal: Denies: Abdominal Pain, Nausea, Vomiting : Denies: Dysuria, Flank Pain Musculoskeletal: Reports: Back Pain. Denies: Leg Pain Skin: Denies: Diaphoresis, Rash Neurological: Denies: Confusion Psychiatric: Reports: Anxiety Hematologic/Lymphatic: Denies: Easy Bleeding, Easy Bruising ED EXAM, GENERAL - Physical Exam Exam: See Below Exam Limited By: No Limitations General Appearance: Alert, WD/WN, Moderate Distress (Hacking cough and appears to be in discomfort associated with it.) Eye Exam: Bilateral Eye: EOMI, Normal Inspection (Sclera are anicteric) Ears: Normal External Exam, Hearing Grossly Normal Ear Exam: Bilateral Ear: Auricle Normal Nose: No Blood, Nasal Drainage Throat/Mouth: Normal Oropharynx, Normal Voice, No Airway Compromise Head: Atraumatic, Normocephalic Neck: Normal Inspection, Non-Tender, Limited Range of Motion Respiratory/Chest: Lungs Clear, Normal Breath Sounds, No Accessory Muscle Use Cardiovascular: No Edema, No JVD, Tachycardia. No: No Murmur, Systolic Murmur Peripheral Pulses: 2+: Radial (L), Radial (R) GI/Abdominal: Normal Bowel Sounds, Soft, Non-Tender Back Exam: Normal Inspection Extremities: Normal Inspection, Normal Range of Motion, Non-Tender, No Pedal Edema, Normal Capillary Refill Neurological: Alert, Oriented, CN II-XII Intact, Normal Cognition, No Motor/Sensory Deficits Psychiatric: Normal Affect, Normal Mood Skin Exam: Warm, Dry, Intact, Normal Color, No Rash Course - Vital Signs Last Recorded V/S: Last Vital Signs Temp 37.0 C 01/24/21 22:38 Pulse 98 01/25/21 00:35 Resp 20 01/25/21 00:35 BP 142/85 H 01/25/21 00:35 Pulse Ox 98 01/25/21 00:35 - Orders/Labs/Meds Orders: Active Orders 24 hr Category Date Time Status Chest 2V [CR] Stat Exams 01/24/21 22:42 Taken Meds: Medications Discontinued Medications Generic Name Dose Route Start Last Admin Trade Name Freq PRN Reason Stop Dose Admin Albuterol/Ipratropium 3 ml 01/24/21 22:41 01/24/21 22:45 Albuterol/Ipratropium 3.0-0.5 Mg/3 Ml Neb Soln NEB 01/24/21 22:42 3 ml ONETIME ONE Administration Azithromycin 500 mg 01/25/21 00:15 Azithromycin 500 Mg Tab PO 01/25/21 00:16 ONETIME ONE Ketorolac Tromethamine 30 mg 01/24/21 22:41 01/24/21 22:45 Ketorolac 30 Mg/Ml Sdv IM 01/24/21 22:42 30 mg ONETIME ONE Administration Prednisone 60 mg 01/24/21 22:41 01/24/21 22:45 Prednisone 20 Mg Tab PO 01/24/21 22:42 60 mg ONETIME ONE Administration - Radiology Interpretation Free Text/Narrative:: Chest x-ray AP and lateral shows no acute disease per my read. I was able to get the official reading from the evaluation his previous chest x-ray last week and did show possible minimal patchy bronchopneumonia in the left lower lung I don't see anything of that on this chest x-ray. There is nothing in the right upper chest where he his having the pain. - Re-Assessments/Exams Free Text/Narrative Re-Assessment/Exam: 01/25/21 00:10: The patient is breathing easier after the nebulizer treatment. He was actually lying on the stretcher almost flat and was having almost no coughing. He was resting at this point. His chest x-ray was negative. I will place the patient on Zithromax for 5 day course with 500 mg daily for 5 days. I will also place the patient on prednisone 60 mg a day for the next 5 days. I will give him a prescription for albuterol Nebules that he continues with the nebulizer machine that he hasn't his house. I will also give a prescription of hydrocodone 5/325 the can use for the pain in his chest and also to help suppress his cough. He appears to be stable for discharge at this point. Precautions and reasons for return to the emergency department were discussed with the patient while he was in the emergency Department a redo down and the patient's discharge instructions. Departure - Departure Time of Disposition: 00:15 Disposition: Home, Self-Care 01 Condition: Good (Improved) Clinical Impression: Bronchitis Reactive airway disease Qualifiers: Asthma severity: moderate Asthma persistence: persistent Asthma complication type: uncomplicated Qualified Code(s): J45.40 - Moderate persistent asthma, uncomplicated - Discharge Information Prescriptions: Acetaminophen/HYDROcodone [HYDROcodone-Acetaminophen 5-325 MG *] 1 tab PO Q6H PRN #10 each PRN Reason: Cough or sharp pain. predniSONE [Prednisone] 60 mg PO DAILY 5 Days #15 tablet Albuterol [Proventil Neb Soln] 2.5 mg NEB Q4H PRN #1 box PRN Reason: Cough or shortness of breath Azithromycin [Zithromax] 500 mg PO DAILY #4 tab Instructions: How to Use a Nebulizer, Adult, Acute Bronchitis, Adult Referrals: Srinivas Garzon MD [Primary Care Provider] - Forms: ED Department Discharge Additional Instructions: Your chest x-ray showed no definite pneumonia. You did seem to be improved after the nebulizer treatment. You appear to have a bronchitis with reactive airway disease. I am placing you on an antibiotic (Zithromax) and I have also given you a higher dose of prednisone that you will need to take for the next 5 days. You should use tube spacer that we gave you with the albuterol inhaler so that it is more effective. Use the nebulizer that you have at home needed for cough or shortness of breath. Use the hydrocodone for sharp pain and to help suppress your cough as needed. Increase your fluid intake. Back to the emergency department for worse breathing, unrelenting vomiting, worsening pain, severe weakness or any other concerning signs or symptoms. Sepsis Event Note (ED) - Focused Exam Vital Signs: Vital Signs Temp Pulse Resp BP Pulse Ox 01/25/21 00:35 98 20 142/85 H 98 01/24/21 23:17 146/99 H 01/24/21 22:45 114 H 01/24/21 22:38 37.0 C 114 H 20 97 - My Orders Last 24 Hours: My Active Orders 01/24/21 22:42 Chest 2V [CR] Stat - Assessment/Plan Last 24 Hours: My Active Orders 01/24/21 22:42 Chest 2V [CR] Stat
[2021-01-24] MEDS ORDERED: predniSONE 20 MG Tab PO ONE (22:41)
[2021-01-24] MEDS ORDERED: Ketorolac 30 MG/ML SDV IM ONE (22:41)
[2021-01-24] MEDS ORDERED: Albuterol/Ipratropium 3.0-0.5 MG/3 ML Neb Soln NEB ONE (22:41)
[2021-01-25] MEDS ORDERED: Azithromycin 500 MG Tab PO ONE (00:15)
[2021-01-25 00:59] VITALS: BP 142/85; PULSE 98
--- NOTE | 2021-01-26 12:23 | CR ---
INDICATION: Cough, fever, shortness of breath. CHEST, TWO VIEWS: PA and lateral views of the chest, 01/24/21, were compared with 09/24/18, and revealed the heart to be normal in size and shape. The aorta is slightly tortuous. Stimulator is noted overlying the right chest with lead extending into the area of the neck. A definite active infiltrate or effusion was not identified. IMPRESSION: No acute process. MTDD
== END 2021-01-25 00:40 | disposition home or self-care (01) ==
LOC: FB.ED 22:11
DX: J40 Bronchitis, not specified as acute or chronic (principal); I10 Essential (primary) hypertension; K21.9 Gastro-esophageal reflux disease without esophagitis; E66.9 Obesity, unspecified; Z68.30 Body mass index [BMI] 30.0-30.9, adult; Z79.899 Other long term (current) drug therapy
CPT/HCPCS: 71046; 94640; 96372; 99283; J1885; J7512; J7620-GY

== ENCOUNTER 2021-01-31 20:48 | Emergency (ER) | payer BC, MEDICAID ==
[2021-01-31] MEDS ORDERED: HYDROmorphone 2 MG/ML SDV IM ONE (21:13)
[2021-01-31] MEDS ORDERED: Ondansetron 4 MG/2 ML SDV IM ONE (21:13)
--- NOTE | 2021-01-31 21:17 | EDM.PDOC ---
ED HPI GENERAL MEDICAL PROBLEM - General Chief Complaint: Abdominal Pain Stated Complaint: gall bladder Time Seen by Provider: 01/31/21 21:14 Source of Information: Reports: Patient History Limitations: Reports: No Limitations - History of Present Illness INITIAL COMMENTS - FREE TEXT/NARRATIVE: Colten is a 45 yo male with ruq pain since yesterday. Associated with nausea. Radiates to the back. Was seen on 01/19 where an US showed some sludge in the gallbladder. He took Ursodiol with no relief. - Related Data Allergies Allergy/AdvReac Type Severity Reaction Status Date / Time No Known Allergies Allergy Verified 10/06/20 09:50 Home Meds: Home Meds Topiramate 75 mg PO BEDTIME 04/05/18 [History] FLUoxetine HCl [Fluoxetine HCl] 20 mg PO BEDTIME 10/23/18 [History] Omeprazole 20 mg PO BEDTIME 12/21/18 [History] Gabapentin [Neurontin] 100 mg PO TID #21 capsule 06/12/20 [Rx] Verapamil [Verapamil SR (24 Hr)] 180 mg PO BEDTIME 06/12/20 [History] Cholecalciferol (Vitamin D3) [Vitamin D3] 1,000 unit PO BEDTIME 10/06/20 [History] Magnesium Oxide [Magnesium] 500 mg PO BEDTIME 10/06/20 [History] Potassium Citrate 10 meq PO BID 10/06/20 [History] Albuterol Sulfate [Albuterol Sulfate Hfa] 2 puff INH ASDIRECTED PRN 01/24/21 [History] Benzonatate [Tessalon Perles] 200 mg PO TID PRN 01/24/21 [History] Metoprolol Succinate 25 mg PO BEDTIME 01/24/21 [History] Rizatriptan Benzoate [Rizatriptan] 5 mg PO BEDTIME 01/24/21 [History] amLODIPine Besylate [Amlodipine Besylate] 10 mg PO DAILY 01/24/21 [History] predniSONE [Prednisone] 20 mg PO DAILY 01/24/21 [History] ursodioL [Ursodiol] 300 mg PO TID 01/24/21 [History] Acetaminophen/HYDROcodone [HYDROcodone-Acetaminophen 5-325 MG *] 1 tab PO Q6H PRN #10 each 01/25/21 [Rx] Albuterol [Proventil Neb Soln] 2.5 mg NEB Q4H PRN #1 box 01/25/21 [Rx] Azithromycin [Zithromax] 500 mg PO DAILY #4 tab 01/25/21 [Rx] predniSONE [Prednisone] 60 mg PO DAILY 5 Days #15 tablet 01/25/21 [Rx] Past Medical History HEENT History: Reports: Other (See Below) Other HEENT History: hx eye ulcer in past Cardiovascular History: Reports: Hypertension Respiratory History: Reports: Other (See Below) Other Respiratory History: BRONCHITIS Gastrointestinal History: Reports: Bowel Obstruction, GERD Other Gastrointestinal History: states has chronic bowel obstruction d/t scar tissue in abd. in hosp. No surgery done. Genitourinary History: Reports: Renal Calculus Other Genitourinary History: renal cell CA R kidney Musculoskeletal History: Reports: Back Pain, Chronic, Fracture, Other (See Below) Other Musculoskeletal History: hx fx L tib fib, L arm, R arm, ribs, compression fx to back, bilat wrist fx Neurological History: Reports: Migraines Psychiatric History: Reports: Depression Other Psychiatric History: treated w/prozac daily Endocrine/Metabolic History: Reports: Obesity/BMI 30+ Hematologic History: Reports: Anesthesia Reaction, Blood Transfusion(s) Other Hematologic History: states coma X4 days s/p rt incisional hernia repair, had Pulmonary edema s/p. Oncologic (Cancer) History: Reports: Renal Other Oncologic History: Renal cell Carcinoma 3 yrs ago. - Infectious Disease History Infectious Disease History: Reports: Chicken Pox, Measles, Novel Coronavirus, Shingles - Past Surgical History HEENT Surgical History: Reports: Adenoidectomy, Tonsillectomy Cardiovascular Surgical History: Reports: None Respiratory Surgical History: Reports: None GI Surgical History: Reports: Appendectomy, Colonoscopy, EGD, Hernia, Abdominal Male Surgical History: Reports: Nephrectomy Other Male Surgeries/Procedures: partial R kidney nephrectomy Neurological Surgical History: Reports: None Musculoskeletal Surgical History: Reports: ORIF, Shoulder Surgery Other Musculoskeletal Surgeries/Procedures:: bilat elbow surg, 7 R shoulder surg, Oncologic Surgical History: Reports: Other (See Below) Other Oncologic Surgeries/Procedures: R partial nephrectomy Dermatological Surgical History: Reports: Other (See Below) Social & Family History - Family History Family Medical History: No Pertinent Family History - Caffeine Use Caffeine Use: Reports: Soda Other Caffeine Use: mountain dew. Caffeine Use Comment: 2 liters of pop/day - Living Situation & Occupation Living situation: Reports: Occupation: Employed (Works at a local [employer]) ED ROS GENERAL - Review of Systems Review Of Systems: Comprehensive ROS is negative, except as noted in HPI. ED EXAM, GI/ABD - Physical Exam Exam: See Below Exam Limited By: No Limitations General Appearance: Alert, No Apparent Distress Head: Atraumatic, Normocephalic GI/Abdominal Exam: Normal Bowel Sounds, Soft, Non-Tender, No Organomegaly, No Distention, No Abnormal Bruit, No Mass, Pelvis Stable Course - Vital Signs Last Recorded V/S: Last Vital Signs Temp 97 F 01/31/21 21:00 Pulse 75 01/31/21 21:00 Resp 18 01/31/21 21:00 BP 187/119 H 01/31/21 21:00 Pulse Ox 97 01/31/21 21:00 - Orders/Labs/Meds Orders: Active Orders 24 hr Category Date Time Status HYDROmorphone [Dilaudid] Med 01/31/21 21:13 Once 2 mg IM ONETIME ONE Ondansetron [Zofran] Med 01/31/21 21:13 Once 4 mg IM ONETIME ONE Departure - Departure Time of Disposition: 21:16 Disposition: Home, Self-Care 01 Condition: Good Clinical Impression: RUQ abdominal pain - Discharge Information Sepsis Event Note (ED) - Evaluation Sepsis Screening Result: No Definite Risk - Focused Exam Vital Signs: Vital Signs Temp Pulse Resp BP Pulse Ox 01/31/21 21:00 97 F 75 18 187/119 H 97 - Problem List & Annotations (1) RUQ abdominal pain SNOMED Code(s): 190909706 Code(s): R10.11 - RIGHT UPPER QUADRANT PAIN Status: Acute - Problem List Review Problem List Initiated/Reviewed/Updated: Yes - My Orders Last 24 Hours: My Active Orders 01/31/21 21:13 HYDROmorphone [Dilaudid] 2 mg IM ONETIME ONE Ondansetron [Zofran] 4 mg IM ONETIME ONE - Assessment/Plan Last 24 Hours: My Active Orders 01/31/21 21:13 HYDROmorphone [Dilaudid] 2 mg IM ONETIME ONE Ondansetron [Zofran] 4 mg IM ONETIME ONE Plan: He is awaiting a surgical consult at [facility]. I have him Dilaudid and Bria. [place] home
[2021-01-31 23:06] VITALS: BP 156/103; PULSE 76
== END 2021-01-31 21:55 | disposition home or self-care (01) ==
LOC: FB.ED 20:48
DX: R10.11 Right upper quadrant pain (principal); I10 Essential (primary) hypertension; E66.9 Obesity, unspecified; Z79.899 Other long term (current) drug therapy; Z90.49 Acquired absence of other specified parts of digestive tract
CPT/HCPCS: 96372; 99283; J1170; J2405

== ENCOUNTER 2021-02-15 14:22 | Emergency (ER) | payer BC, MEDICAID ==
[2021-02-15] MEDS ORDERED: Acetaminophen/HYDROcodone 325-5 MG Tab PO ONE (14:23)
[2021-02-15] MEDS ORDERED: Acetaminophen/HYDROcodone 325-7.5 MG Tab PO PRN (14:53)
[2021-02-15] MEDS ORDERED: Codeine/guaiFENesin 10-100 MG/5 ML Syrup 5 ML Cup PO ONE (14:54)
--- NOTE | 2021-02-15 14:59 | EDM.PDOC ---
ED HPI GENERAL MEDICAL PROBLEM - General Chief Complaint: Abdominal Pain Stated Complaint: GALLBLADDER ISSUES Time Seen by Provider: 02/15/21 14:30 Source of Information: Reports: Patient - History of Present Illness INITIAL COMMENTS - FREE TEXT/NARRATIVE: 45-year-old gentleman with known cholangitis with gallbladder sludge treated appropriately and surgery scheduled for 5 days from now came to the emergency department due to severe right upper quadrant pain. He has a history of overdosing on Profen with partial right renal nephrectomy. He did take 1200 mg of ibuprofen today due to pain. Patient states that this does feel like his gallbladder pain that he has had in the past he just came in because he cannot take it anymore. He has not had fever, chills, nausea, vomiting, change in bowel or bladder habits, chest pain, shortness of breath. He does have a chronic cough. The cough has been present for more than 2 months. He has been seen by his primary care providers in the past. He tested negative for Covid and influenza several days ago. Right Abdomen Pain Score (Numeric/FACES): 10 - Related Data Allergies Allergy/AdvReac Type Severity Reaction Status Date / Time No Known Allergies Allergy Verified 02/15/21 15:14 Home Meds: Home Meds Topiramate 75 mg PO BEDTIME 04/05/18 [History] FLUoxetine HCl [Fluoxetine HCl] 20 mg PO BEDTIME 10/23/18 [History] Omeprazole 20 mg PO BEDTIME 12/21/18 [History] Verapamil [Verapamil SR (24 Hr)] 180 mg PO BEDTIME 06/12/20 [History] Cholecalciferol (Vitamin D3) [Vitamin D3] 1,000 unit PO BEDTIME 10/06/20 [History] Magnesium Oxide [Magnesium] 500 mg PO BEDTIME 10/06/20 [History] Potassium Citrate 10 meq PO BID 10/06/20 [History] Metoprolol Succinate 25 mg PO BEDTIME 01/24/21 [History] Rizatriptan Benzoate [Rizatriptan] 5 mg PO BEDTIME 01/24/21 [History] amLODIPine Besylate [Amlodipine Besylate] 10 mg PO DAILY 01/24/21 [History] ursodioL [Ursodiol] 300 mg PO TID 01/24/21 [History] Past Medical History HEENT History: Reports: Other (See Below) Other HEENT History: History of eye ulcer. Cardiovascular History: Reports: Hypertension Respiratory History: Reports: Other (See Below) Other Respiratory History: Bronchitis. Gastrointestinal History: Reports: Bowel Obstruction, GERD Other Gastrointestinal History: States chronic bowel obstruction related to scar tissue in abd. Genitourinary History: Reports: Renal Calculus Other Genitourinary History: Renal cell CA right kidney. Musculoskeletal History: Reports: Back Pain, Chronic, Fracture, Other (See Below) Other Musculoskeletal History: Fracture left tib/fib. Fractures left and right arms. Compression fracture of back. Neurological History: Reports: Migraines Psychiatric History: Reports: Depression Other Psychiatric History: treated w/prozac daily Endocrine/Metabolic History: Reports: Obesity/BMI 30+ Hematologic History: Reports: Anesthesia Reaction, Blood Transfusion(s) Other Hematologic History: States coma x4 days after hernia repair. Pulmonary edema post-op. Oncologic (Cancer) History: Reports: Renal Other Oncologic History: Renal cell carcinoma. - Infectious Disease History Infectious Disease History: Reports: Chicken Pox, Measles, Novel Coronavirus, Shingles - Past Surgical History HEENT Surgical History: Reports: Adenoidectomy, Tonsillectomy Cardiovascular Surgical History: Reports: None Respiratory Surgical History: Reports: None GI Surgical History: Reports: Appendectomy, Colonoscopy, EGD, Hernia, Abdominal Male Surgical History: Reports: Nephrectomy Other Male Surgeries/Procedures: partial R kidney nephrectomy Neurological Surgical History: Reports: None Musculoskeletal Surgical History: Reports: ORIF, Shoulder Surgery Other Musculoskeletal Surgeries/Procedures:: bilat elbow surg, 7 R shoulder surg, Oncologic Surgical History: Reports: Other (See Below) Other Oncologic Surgeries/Procedures: R partial nephrectomy Dermatological Surgical History: Reports: Other (See Below) Social & Family History - Family History Family Medical History: No Pertinent Family History - Caffeine Use Caffeine Use: Reports: Soda Other Caffeine Use: mountain dew. 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) ED ROS GENERAL - Review of Systems Review Of Systems: See Below Constitutional: Reports: No Symptoms HEENT: Reports: No Symptoms Respiratory: Reports: No Symptoms Cardiovascular: Reports: No Symptoms Endocrine: Reports: No Symptoms GI/Abdominal: Reports: Abdominal Pain : Reports: Flank Pain Musculoskeletal: Reports: Back Pain Skin: Reports: No Symptoms Neurological: Reports: No Symptoms Psychiatric: Reports: No Symptoms Hematologic/Lymphatic: Reports: No Symptoms Immunologic: Reports: No Symptoms ED EXAM, GI/ABD - Physical Exam Exam: See Below Exam Limited By: No Limitations General Appearance: Alert, Mild Distress Eyes: Bilateral: EOMI Head: Atraumatic, Normocephalic Neck: Normal Inspection Respiratory/Chest: No Respiratory Distress, Lungs Clear Cardiovascular: Regular Rate, Rhythm GI/Abdominal Exam: Normal Bowel Sounds, Non-Tender Back Exam: Normal Inspection, CVA Tenderness (R). No: CVA Tenderness (L) Extremities: Normal Inspection Neurological: Alert, Oriented, Normal Cognition, Normal Gait Psychiatric: Anxious Skin Exam: Warm, Dry Course - Vital Signs Text/Narrative:: Review of lab work shows grossly normal renal function for patient's history with no leukocytosis. Patient urinalysis does have a few bacteria although his urinalysis was not a perfect clean-catch there is concern for urinary tract infection. Given the patient's symptoms and history of cholangitis there is some concern for cholecystitis. He does have surgery scheduled for this Tuesday. Patient was given Treadwell 7.5/325 with only very mild relief of pain. Patient was also given guaifenesin/codeine with good relief of his cough. Patient states he has some of this cough syrup at home but does not like to use it. Patient will be given 1 g ceftriaxone IM and sent home with hydrocodone for continued pain relief. Last Recorded V/S: Last Vital Signs Temp 36.2 C 02/15/21 14:22 Pulse 80 02/15/21 14:22 Resp 20 02/15/21 14:22 BP 131/87 02/15/21 14:22 Pulse Ox 97 02/15/21 14:22 - Orders/Labs/Meds Orders: Active Orders 24 hr Category Date Time Status Acetaminophen/HYDROcodone [Treadwell 325-7.5 MG] Med 02/15/21 14:53 Active 1 tab PO Q6H PRN Medication Orders Hydrocodone Bitart/Acetaminophen (Acetaminophen/Hydrocodone 325-7.5 Mg Tab) 1 tab PO Q6H PRN PRN Reason: Pain (severe 7-10) Last Admin: 02/15/21 15:00 Dose: 1 tab Documented by: LIZETT Labs: Laboratory Tests 02/15/21 02/15/21 02/15/21 Range/Units 15:00 15:05 15:05 WBC 8.2 (3.2-10.1) x10-3/uL RBC 5.27 (3.90-5.90) x10(6)uL Hgb 14.8 (12.9-17.7) g/dL Hct 44.2 (38.3-50.1) % MCV 83.8 (80.8-98.7) fL MCH 28.0 (27.0-33.3) pg MCHC 33.5 (28.7-35.3) g/dL RDW 14.8 (12.4-15.0) % Plt Count 197 (117-477) x10(3)uL MPV 7.8 (6.7-11.0) fL Neut % (Auto) 64.8 (40.3-71.8) % Lymph % (Auto) 21.5 (15.8-45.3) % [place] % (Auto) 8.5 (5.5-15.2) % Eos % (Auto) 3.8 (0.1-6.8) % Baso % (Auto) 1.4 (0.3-3.8) % Neut # (Auto) 5.3 (1.7-6.9) x10-3/uL Lymph # (Auto) 1.8 (0.5-4.5) x10-3/uL [facility] # (Auto) 0.7 (0.0-1.2) x10-3/uL Eos # (Auto) 0.3 (0.0-0.6) x10-3/uL Baso # (Auto) 0.1 (0.0-0.3) x10-3/uL Sodium 142 (135-145) mmol/L Potassium 4.1 (3.5-5.3) mmol/L Chloride 104 (100-110) mmol/L Carbon Dioxide 31 (21-32) mmol/L BUN 20 H (7-18) mg/dL Creatinine 1.6 H (0.70-1.30) mg/dL Est Cr Clr Drug Dosing 62.65 mL/min Estimated GFR (MDRD) 47 L (>60) BUN/Creatinine Ratio 12.5 (9-20) Glucose 82 (80-116) mg/dL Calcium 8.8 (8.6-10.2) mg/dL Total Bilirubin 0.6 (0.1-1.3) mg/dL AST 20 D (5-25) IU/L ALT 29 D (12-36) U/L Alkaline Phosphatase 88 (56-112) IU/L Total Protein 7.5 (6.0-8.0) g/dL Albumin 3.8 (3.5-5.2) g/dL Globulin 3.7 g/dL Albumin/Globulin Ratio 1.0 Urine Color Yellow (YELLOW) Urine Appearance Clear (CLEAR) Urine pH 5.0 (5.0-6.5) Ur Specific [place] 1.020 (1.010-1.025) Urine Protein Negative (NEGATIVE) mg/dL Urine Glucose (UA) Normal (NORMAL) mg/dL Urine Ketones Negative (NEGATIVE) mg/dL Urine Occult Blood Negative (NEGATIVE) Urine Nitrite Negative (NEGATIVE) Urine Bilirubin Negative (NEGATIVE) Urine Urobilinogen 1 H (NEGATIVE) mg/dL Ur Leukocyte Esterase Negative (NEGATIVE) Urine WBC 0-5 (0-5) Ur Squamous Epith Cells Occasional (NS,R,O) Urine Bacteria Few H (NS) Meds: Medications Generic Name Dose Route Start Last Admin Trade Name Freq PRN Reason Stop Dose Admin Hydrocodone Bitart/Acetaminophen 1 tab 02/15/21 14:53 02/15/21 15:00 Acetaminophen/Hydrocodone 325-7.5 Mg Tab PO 1 tab Q6H PRN Administration Pain (severe 7-10) Discontinued Medications Generic Name Dose Route Start Last Admin Trade Name Freq PRN Reason Stop Dose Admin Guaifenesin/Codeine Phosphate 5 ml 02/15/21 14:54 02/15/21 15:00 Codeine/Guaifenesin 10-100 Mg/5 Ml Syrup 5 Ml Cup PO 02/15/21 14:55 5 ml ONETIME ONE Administration Departure - Departure Time of Disposition: 16:29 Disposition: Home, Self-Care 01 Condition: Good Clinical Impression: Urinary tract infection, Cholangitis - Discharge Information *PRESCRIPTION DRUG MONITORING PROGRAM REVIEWED*: Not Applicable *COPY OF PRESCRIPTION DRUG MONITORING REPORT IN PATIENT JAM: Not Applicable Instructions: Abdominal Pain, Adult, [id number], Pain Medicine Instructions, [id number], Cholangitis, Urinary Tract Infection, Adult, [id number] Referrals: Srinivas Garzon MD [Primary Care Provider] - Forms: ED Department Discharge Additional Instructions: Patient given 1 g ceftriaxone IM due to suspicion for both cholangitis and urinary tract infection. Patient had some pain relief with Treadwell in the emergency department. Patient will be sent home with Treadwell 5/325 and instructed to take Tylenol scheduled and not to overdose on Tylenol or NSAIDs. Patient should follow-up with his primary care physician in the next day or 2 if he has continued need for pain medication. Sepsis Event Note (ED) - Evaluation Sepsis Screening Result: No Definite Risk - Focused Exam Vital Signs: Vital Signs Temp Pulse Resp BP Pulse Ox 02/15/21 14:22 36.2 C 80 20 131/87 97 - My Orders Last 24 Hours: My Active Orders 02/15/21 14:53 Acetaminophen/HYDROcodone [Treadwell 325-7.5 MG] 1 tab PO Q6H PRN - Assessment/Plan Last 24 Hours: My Active Orders 02/15/21 14:53 Acetaminophen/HYDROcodone [Treadwell 325-7.5 MG] 1 tab PO Q6H PRN
[2021-02-15] MEDS ORDERED: cefTRIAXone 1 GM Vial IM ONE (16:25)
[2021-02-15 17:07] VITALS: BP 127/89; PULSE 64
== END 2021-02-15 17:02 | disposition home or self-care (01) ==
LOC: FB.ED 14:22
DX: K83.09 Other cholangitis (principal); N39.0 Urinary tract infection, site not specified; I10 Essential (primary) hypertension; K21.9 Gastro-esophageal reflux disease without esophagitis; E66.9 Obesity, unspecified; Z68.33 Body mass index [BMI] 33.0-33.9, adult; Z86.16 Personal history of COVID-19; Z79.899 Other long term (current) drug therapy
CPT/HCPCS: 36415; 80053; 81001; 85025; 96372; 99284; A9270-GY; J0696

== ENCOUNTER 2021-03-29 09:18 | Emergency (ER) | payer BC, MEDICAID ==
[2021-03-29] MEDS ORDERED: Albuterol/Ipratropium 3.0-0.5 MG/3 ML Neb Soln NEB ONE (10:28)
[2021-03-29] MEDS ORDERED: predniSONE 20 MG Tab PO STA (10:29)
[2021-03-29 11:55] VITALS: BP 170/104; PULSE 82
== END 2021-03-29 11:45 | disposition home or self-care (01) ==
LOC: FB.ED 09:18
DX: U09.9 Post COVID-19 condition, unspecified (principal); I10 Essential (primary) hypertension; K21.9 Gastro-esophageal reflux disease without esophagitis; E66.9 Obesity, unspecified; Z68.33 Body mass index [BMI] 33.0-33.9, adult; Z87.891 Personal history of nicotine dependence; Z79.899 Other long term (current) drug therapy
CPT/HCPCS: 36415; 71045; 80053; 83605; 85025; 85379; 87040; 94640; 99285; J7512; J7620-GY

== ENCOUNTER 2021-05-30 20:33 | Emergency (ER) | payer BC, MEDICAID ==
[2021-05-30] MEDS ORDERED: traMADol 50 MG Tab PO ONE (20:34)
[2021-05-31 02:04] VITALS: BP 159/98; PULSE 65
== END 2021-05-30 22:28 | disposition home or self-care (01) ==
LOC: FB.ED 20:33
DX: M25.572 Pain in left ankle and joints of left foot (principal); I10 Essential (primary) hypertension; K21.9 Gastro-esophageal reflux disease without esophagitis; E66.9 Obesity, unspecified; Z68.33 Body mass index [BMI] 33.0-33.9, adult; Z79.899 Other long term (current) drug therapy
CPT/HCPCS: 99282; 99283; A9270-GY

== ENCOUNTER 2021-06-09 09:44 | Observation (INO) | payer BC, MEDICAID ==
[2021-06-09] MEDS ORDERED: Sodium Chloride 0.9% 1,000 ML IV ONE (10:11)
[2021-06-09] MEDS ORDERED: Ondansetron 4 MG/2 ML SDV IVPUSH ONE ×2 (10:11→14:19)
[2021-06-09] MEDS ORDERED: Morphine 2 MG/ML SYRINGE IVPUSH ONE ×3 (10:11→12:19)
[2021-06-09] MEDS ORDERED: Ketorolac 30 MG/ML SDV IVPUSH ONE (10:20)
[2021-06-09] MEDS ORDERED: Morphine 4 MG/ML VIAL IVPUSH ONE (13:42)
[2021-06-09] MEDS ORDERED: HYDROmorphone 2 MG/ML SDV IVPUSH PRN (13:57)
[2021-06-09] MEDS ORDERED: Acetaminophen 325 MG Tab PO SCH ×2 (14:00→16:00)
[2021-06-09] MEDS ORDERED: Ketorolac 30 MG/ML SDV IM SCH (14:15)
[2021-06-09] MEDS: Ondansetron 4 MG/2 ML SDV IVPUSH PRN ×2 (14:21→20:20)
[2021-06-09] MEDS ORDERED: Albuterol/Ipratropium 3.0-0.5 MG/3 ML Neb Soln INH PRN (15:11)
[2021-06-09] MEDS: Ketorolac 30 MG/ML SDV IVPUSH SCH ×2 (15:37→21:45)
[2021-06-09] MEDS ORDERED: diphenhydrAMINE 25 MG Cap PO PRN (16:06)
[2021-06-09] MEDS: Morphine 4 MG/ML VIAL IVPUSH PRN ×2 (18:37→22:49)
[2021-06-09] MEDS: Sodium Chloride 0.9% 10 ML Syringe FLUSH PRN ×3 (18:37→20:20)
[2021-06-09] MEDS: Verapamil 180 MG Tab.ER PO SCH (21:09)
[2021-06-09] MEDS: amLODIPine 10 MG Tab PO SCH (21:11)
[2021-06-09] MEDS: Potassium Citrate 10 MEQ Tab.ER PO SCH (21:11)
[2021-06-09] MEDS: FLUoxetine 20 MG Cap PO SCH (21:12)
[2021-06-09] MEDS: Metoprolol Succinate 100 MG Tab.ER PO SCH (21:12)
[2021-06-09] MEDS: Pantoprazole 40 MG Tab.CR PO SCH (21:12)
[2021-06-09] MEDS: Acetaminophen 325 MG Tab PO SCH (21:43)
[2021-06-09] MEDS: Sodium Chloride 0.9% 1,000 ML IV SCH (21:51)
[2021-06-10] MEDS: Morphine 4 MG/ML VIAL IVPUSH PRN ×5 (01:55→21:41)
[2021-06-10] MEDS: Ketorolac 30 MG/ML SDV IVPUSH SCH ×4 (04:04→21:10)
[2021-06-10] MEDS: Acetaminophen 325 MG Tab PO SCH ×4 (04:04→21:09)
[2021-06-10] MEDS: Sodium Chloride 0.9% 1,000 ML IV SCH ×3 (05:57→22:19)
[2021-06-10] MEDS: Potassium Citrate 10 MEQ Tab.ER PO SCH ×2 (08:19→21:08)
[2021-06-10] MEDS: Ondansetron 4 MG/2 ML SDV IVPUSH PRN ×3 (08:49→21:10)
[2021-06-10] MEDS: Sodium Chloride 0.9% 10 ML Syringe FLUSH PRN (10:54)
[2021-06-10] MEDS: FLUoxetine 20 MG Cap PO SCH (21:08)
[2021-06-10] MEDS: amLODIPine 10 MG Tab PO SCH (21:08)
[2021-06-10] MEDS: Pantoprazole 40 MG Tab.CR PO SCH (21:08)
[2021-06-10] MEDS: Verapamil 180 MG Tab.ER PO SCH (21:08)
[2021-06-10] MEDS: Metoprolol Succinate 100 MG Tab.ER PO SCH (21:08)
[2021-06-11] MEDS: Ketorolac 30 MG/ML SDV IVPUSH SCH (03:57)
[2021-06-11] MEDS: Acetaminophen 325 MG Tab PO SCH ×2 (04:09→10:12)
[2021-06-11] MEDS: Sodium Chloride 0.9% 1,000 ML IV SCH (06:20)
[2021-06-11] MEDS: Potassium Citrate 10 MEQ Tab.ER PO SCH (08:03)
[2021-06-11] MEDS ORDERED: Ondansetron 4 MG Tab.DIS PO PRN (08:24)
[2021-06-11] MEDS ORDERED: Ibuprofen 200 MG Tab PO SCH (10:00)
[2021-06-11 16:42] VITALS: BP 135/90; PULSE 77
== END 2021-06-11 16:35 | disposition home or self-care (01) ==
LOC: FB.ED 09:44 → FB.MS 13:40
PROVIDERS: ADMIT Family Medicine; ATTEND Family Medicine
DX: K56.609 Unspecified intestinal obstruction, unspecified as to partial versus complete obstruction (principal); K21.00 Gastro-esophageal reflux disease with esophagitis, without bleeding; I12.9 Hypertensive chronic kidney disease with stage 1 through stage 4 chronic kidney disease, or unspecified chronic kidney disease; G43.009 Migraine without aura, not intractable, without status migrainosus; G47.30 Sleep apnea, unspecified; E66.9 Obesity, unspecified; N18.2 Chronic kidney disease, stage 2 (mild); Z68.33 Body mass index [BMI] 33.0-33.9, adult; Z90.5 Acquired absence of kidney; Z90.49 Acquired absence of other specified parts of digestive tract; Z98.890 Other specified postprocedural states; Z20.822 Contact with and (suspected) exposure to COVID-19; Z79.899 Other long term (current) drug therapy
CPT/HCPCS: 36410; 36415; 74019; 74176; 80048; 80053; 81001; 83690; 85025; 86140; 96374; 96375; 96376; 99217; 99219; 99225; 99285-25; A9270-GY; G0378; J1885; J2270; J2405; J3490; J7030; Q0162; U0002

== ENCOUNTER 2021-07-31 13:22 | Emergency (ER) | payer BC, MEDICAID ==
[2021-07-31] MEDS ORDERED: Sodium Chloride 0.9% 10 ML Syringe FLUSH PRN (13:44)
[2021-07-31] MEDS ORDERED: Ketorolac 30 MG/ML SDV IVPUSH ONE (13:46)
[2021-07-31] MEDS ORDERED: Morphine 4 MG/ML VIAL IVPUSH STA (13:46)
[2021-07-31] MEDS ORDERED: Ondansetron 4 MG/2 ML SDV IVPUSH STA (13:50)
[2021-07-31] MEDS ORDERED: Sodium Chloride 0.9% 1,000 ML IV SCH (14:00)
[2021-07-31] MEDS ORDERED: Ondansetron 4 MG/2 ML SDV IVPUSH SCH (14:00)
[2021-07-31 14:16] LABS: ESTIMATED GFR 57 mL/min (>60)
[2021-07-31 15:33] VITALS: BP 158/72; PULSE 84
== END 2021-07-31 15:25 | disposition home or self-care (01) ==
LOC: FB.ED 13:22
DX: K52.9 Noninfective gastroenteritis and colitis, unspecified (principal); I10 Essential (primary) hypertension; K21.9 Gastro-esophageal reflux disease without esophagitis; E66.9 Obesity, unspecified; Z79.899 Other long term (current) drug therapy
CPT/HCPCS: 36415; 74176; 80053; 81001; 82150; 83690; 85025; 96361; 96374; 96375; 99284; J2270; J2405; J3490; J7030

== ENCOUNTER 2021-08-02 13:11 | Emergency (ER) | payer BC, MEDICAID ==
[2021-08-02 13:30] VITALS: PULSE 74
[2021-08-02] MEDS ORDERED: Ondansetron 4 MG Tab.DIS PO ONE (13:52)
[2021-08-02] MEDS ORDERED: Acetaminophen/HYDROcodone 325-7.5 MG Tab PO STA (13:52)
[2021-08-02 14:19] LABS: ESTIMATED GFR 62 mL/min (>60)
[2021-08-02 15:35] VITALS: BP 168/82
== END 2021-08-02 14:48 | disposition home or self-care (01) ==
LOC: FB.ED 13:11
DX: K66.0 Peritoneal adhesions (postprocedural) (postinfection) (principal); R11.0 Nausea; I10 Essential (primary) hypertension; K21.9 Gastro-esophageal reflux disease without esophagitis; E66.9 Obesity, unspecified; Z90.49 Acquired absence of other specified parts of digestive tract; Z68.34 Body mass index [BMI] 34.0-34.9, adult
CPT/HCPCS: 36415; 80053; 85025; 99284; A9270; Q0162

== ENCOUNTER 2021-08-02 20:16 | Inpatient (IN) | payer BC, MEDICAID ==
[2021-08-02] MEDS ORDERED: Iopamidol 755 MG/ML 150 ML Bottle IV ONE (20:38)
[2021-08-02 21:01] LABS: ESTIMATED GFR 57 mL/min (>60)
[2021-08-02] MEDS ORDERED: Lactated Ringers 1,000 ML IV ONE (21:10)
[2021-08-02] MEDS ORDERED: Ondansetron 4 MG/2 ML SDV IVPUSH ONE (21:14)
[2021-08-02] MEDS ORDERED: HYDROmorphone 2 MG/ML SDV IVPUSH ONE (21:15)
[2021-08-02] MEDS: Sodium Chloride 0.9% 10 ML Syringe FLUSH PRN ×3 (21:45→23:58)
[2021-08-02] MEDS ORDERED: hydrALAZINE 20 MG/ML SDV IVPUSH PRN (22:45)
[2021-08-02] MEDS ORDERED: Enoxaparin 40 MG/0.4 ML Syringe SUBCUT SCH (22:45)
[2021-08-02] MEDS: Lactated Ringers 1,000 ML IV SCH (23:26)
[2021-08-02] MEDS: HYDROmorphone 2 MG/ML SDV IVPUSH PRN (23:43)
[2021-08-02] MEDS: Ondansetron 4 MG/2 ML SDV IVPUSH SCH (23:46)
[2021-08-02] MEDS: Pantoprazole 40 MG Vial IVPUSH SCH (23:52)
[2021-08-03] MEDS: diphenhydrAMINE 50 MG/ML SDV IVPUSH PRN ×2 (00:37→06:40)
[2021-08-03] MEDS: Sodium Chloride 0.9% 10 ML Syringe FLUSH PRN ×4 (00:38→02:45)
[2021-08-03] MEDS: Ondansetron 4 MG/2 ML SDV IVPUSH SCH ×2 (02:40→06:41)
[2021-08-03] MEDS: HYDROmorphone 2 MG/ML SDV IVPUSH PRN ×4 (02:44→14:37)
[2021-08-03] MEDS: Lactated Ringers 1,000 ML IV SCH ×2 (05:55→12:58)
[2021-08-03 06:54] LABS: ESTIMATED GFR 62 mL/min (>60)
[2021-08-03] MEDS ORDERED: Ondansetron 4 MG/2 ML SDV IVPUSH PRN (09:00)
[2021-08-03] MEDS: Pantoprazole 40 MG Vial IVPUSH SCH (12:03)
[2021-08-03] MEDS ORDERED: hydrALAZINE 20 MG/ML SDV IVPUSH SCH (14:00)
[2021-08-03 18:33] VITALS: BP 153/94; PULSE 105
[2021-08-03] MEDS ORDERED: Enoxaparin 40 MG/0.4 ML Syringe SUBCUT SCH (21:00)
== END 2021-08-03 18:30 | DRG 247 ==
LOC: FB.ED 20:16 → FB.MS 22:27
PROVIDERS: ADMIT Student in an Organized Health Care Education/Training Program; ATTEND Family Medicine
PROC: 0D9670Z Drainage of Stomach with Drainage Device, Via Natural or Artificial Opening (ICD-10-PCS; principal; 2021-08-02)
DX: K56.609 Unspecified intestinal obstruction, unspecified as to partial versus complete obstruction (principal); N18.2 Chronic kidney disease, stage 2 (mild); I12.9 Hypertensive chronic kidney disease with stage 1 through stage 4 chronic kidney disease, or unspecified chronic kidney disease; E66.9 Obesity, unspecified; K21.00 Gastro-esophageal reflux disease with esophagitis, without bleeding; E83.59 Other disorders of calcium metabolism; N29 Other disorders of kidney and ureter in diseases classified elsewhere; R33.9 Retention of urine, unspecified; T40.605A Adverse effect of unspecified narcotics, initial encounter; G47.30 Sleep apnea, unspecified; K21.9 Gastro-esophageal reflux disease without esophagitis; G89.29 Other chronic pain; M54.9 Dorsalgia, unspecified; Z20.822 Contact with and (suspected) exposure to COVID-19; G43.909 Migraine, unspecified, not intractable, without status migrainosus; Z94.9 Transplanted organ and tissue status, unspecified; Z87.19 Personal history of other diseases of the digestive system; Z98.890 Other specified postprocedural states; Z85.528 Personal history of other malignant neoplasm of kidney; Z86.16 Personal history of COVID-19; Z87.01 Personal history of pneumonia (recurrent); Z87.440 Personal history of urinary (tract) infections; Z86.19 Personal history of other infectious and parasitic diseases; Z90.49 Acquired absence of other specified parts of digestive tract; Z90.5 Acquired absence of kidney; Z68.33 Body mass index [BMI] 33.0-33.9, adult
CPT/HCPCS: 36415; 43752; 71045; 74177; 80048; 80053; 85025; 96361; 96374; 96375; 99222; 99238; 99284; 99285-25; C9113; J0360; J1170; J1200; J1650; J2405; J3490; J7120; Q9967; U0002

== ENCOUNTER 2021-12-15 11:33 | Emergency (ER) | payer BC, MEDICAID ==
[2021-12-15 11:51] VITALS: BP 162/104; PULSE 88
[2021-12-15] MEDS ORDERED: Sodium Chloride 0.9% 1,000 ML IV ONE (11:51)
[2021-12-15] MEDS ORDERED: Acetaminophen 500 MG Tab PO ONE (11:57)
[2021-12-15] MEDS ORDERED: Morphine 2 MG/ML SYRINGE IVPUSH ONE (12:05)
[2021-12-15 12:29] LABS: ESTIMATED GFR 62 mL/min (>60)
[2021-12-15] MEDS ORDERED: Morphine 4 MG/ML VIAL IVPUSH ONE (14:20)
[2021-12-15] MEDS ORDERED: Albuterol/Ipratropium 3.0-0.5 MG/3 ML Neb Soln NEB ONE (14:21)
[2021-12-15] MEDS ORDERED: Magnesium Sulfate/Water 2 GM in Premix Bag 1 BAG IV ONE (14:25)
[2021-12-15] MEDS ORDERED: Ketorolac 30 MG/ML SDV IVPUSH ONE (14:27)
[2021-12-15] MEDS ORDERED: Metoclopramide 10 MG/2 ML SDV IVPUSH ONE (14:27)
[2021-12-15] MEDS ORDERED: Dexamethasone 4 MG/ML 5 ML MDV IVPUSH ONE (14:28)
[2021-12-15] MEDS ORDERED: Iopamidol 755 Mg/ML 100 ML Bottle IV SCH (15:15)
== END 2021-12-15 17:35 | disposition home or self-care (01) ==
LOC: FB.ED 11:33
DX: U07.1 COVID-19 (principal); J98.4 Other disorders of lung; E83.42 Hypomagnesemia; I10 Essential (primary) hypertension; E66.9 Obesity, unspecified; Z68.34 Body mass index [BMI] 34.0-34.9, adult; Z79.899 Other long term (current) drug therapy; Z90.49 Acquired absence of other specified parts of digestive tract; Z86.16 Personal history of COVID-19
CPT/HCPCS: 36415; 71275; 80053; 81001; 83735; 84484; 85025; 85379; 86140; 93005; 94640; 96361; 96365; 96375; 96376; 99285-25; A9270-GY; J1100; J1885; J2270; J2765; J3475; J7030; J7620; Q9967

== ENCOUNTER 2022-01-31 14:59 | Emergency (ER) | payer BC, MEDICAID ==
[2022-01-31] MEDS ORDERED: Lidocaine 1% 20 ML MDV INFILT ONE (15:00)
[2022-01-31] MEDS ORDERED: Ketorolac 30 MG/ML SDV IM ONE (15:13)
[2022-01-31] MEDS ORDERED: Diphtheria,Pertussis(Acell),Tetanus Vaccine 0.5 ML Syringe IM ONE (15:46)
[2022-01-31 16:21] VITALS: BP 152/98; PULSE 83
== END 2022-01-31 16:15 | disposition home or self-care (01) ==
LOC: FB.ED 14:59
DX: S61.210A Laceration without foreign body of right index finger without damage to nail, initial encounter (principal); I10 Essential (primary) hypertension; K21.9 Gastro-esophageal reflux disease without esophagitis; E66.9 Obesity, unspecified; Z68.34 Body mass index [BMI] 34.0-34.9, adult; Z23 Encounter for immunization; Z79.899 Other long term (current) drug therapy; W26.8XXA Contact with other sharp object(s), not elsewhere classified, initial encounter
CPT/HCPCS: 12002; 90471; 90715; 96372; 99282; J1885

== ENCOUNTER 2022-02-12 16:09 | Emergency (ER) | payer BC, MEDICAID ==
[2022-02-12 16:33] VITALS: BP 157/107; PULSE 80
== END 2022-02-12 18:00 | disposition home or self-care (01) ==
LOC: FB.ED 16:09
DX: S76.912A Strain of unspecified muscles, fascia and tendons at thigh level, left thigh, initial encounter (principal); I10 Essential (primary) hypertension; K21.9 Gastro-esophageal reflux disease without esophagitis; E66.9 Obesity, unspecified; Z79.899 Other long term (current) drug therapy; Z87.891 Personal history of nicotine dependence; Z86.16 Personal history of COVID-19; Z68.34 Body mass index [BMI] 34.0-34.9, adult; Y99.0 Civilian activity done for income or pay
CPT/HCPCS: 36415; 73552-LT; 85379; 99283

== ENCOUNTER 2022-03-17 17:31 | Emergency (ER) | payer BC, MEDICAID ==
[2022-03-17] MEDS ORDERED: Ketorolac 30 MG/ML SDV IVPUSH ONE (18:39)
[2022-03-17] MEDS ORDERED: Morphine 4 MG/ML VIAL IVPUSH ONE (18:39)
[2022-03-17] MEDS ORDERED: Ondansetron 4 MG/2 ML SDV IVPUSH ONE (18:39)
[2022-03-17] MEDS ORDERED: Sodium Chloride 0.9% 1,000 ML IV SCH (18:45)
[2022-03-17 19:10] LABS: ESTIMATED GFR 53 mL/min (>60)
[2022-03-17] MEDS ORDERED: HYDROmorphone 2 MG/ML SDV IVPUSH ONE (20:19)
[2022-03-17 21:51] VITALS: BP 118/84; PULSE 74
== END 2022-03-17 21:00 | disposition home or self-care (01) ==
LOC: FB.ED 17:31
DX: N17.9 Acute kidney failure, unspecified (principal); R11.2 Nausea with vomiting, unspecified; R19.7 Diarrhea, unspecified; I10 Essential (primary) hypertension; K21.9 Gastro-esophageal reflux disease without esophagitis; E66.9 Obesity, unspecified; Z68.33 Body mass index [BMI] 33.0-33.9, adult; Z79.899 Other long term (current) drug therapy; Z86.16 Personal history of COVID-19; Z20.822 Contact with and (suspected) exposure to COVID-19
CPT/HCPCS: 36415; 80053; 83690; 83735; 85025; 86140; 96361; 96374; 96375; 99284-25; J1170; J1885; J2270; J2405; J7030; U0002

== ENCOUNTER 2022-04-30 11:49 | Emergency (ER) | payer BC, MEDICAID ==
[2022-04-30] MEDS ORDERED: SUMAtriptan 6 MG/0.5 ML SDV SUBCUT ONE (12:15)
[2022-04-30] MEDS ORDERED: Ketorolac 30 MG/ML SDV IM STA (12:15)
[2022-04-30] MEDS ORDERED: Ondansetron 4 MG Tab.DIS PO STA (12:15)
[2022-04-30 14:20] VITALS: BP 135/90; PULSE 59
== END 2022-04-30 14:09 | disposition home or self-care (01) ==
LOC: FB.ED 11:49
DX: S29.011A Strain of muscle and tendon of front wall of thorax, initial encounter (principal); S20.211A Contusion of right front wall of thorax, initial encounter; G43.009 Migraine without aura, not intractable, without status migrainosus; I10 Essential (primary) hypertension; K21.9 Gastro-esophageal reflux disease without esophagitis; E66.9 Obesity, unspecified; Z79.899 Other long term (current) drug therapy; W00.0XXA Fall on same level due to ice and snow, initial encounter
CPT/HCPCS: 71101-LT; 96372; 99283; J1885; J3030; Q0162

== ENCOUNTER 2022-06-22 09:48 | Emergency (ER) | payer BC, MEDICAID ==
[2022-06-22 10:12] VITALS: BP 134/88; PULSE 71
[2022-06-22] MEDS ORDERED: Sodium Chloride 0.9% 10 ML Syringe FLUSH PRN (10:22)
[2022-06-22] MEDS: Sodium Chloride 0.9% 1,000 ML IV ONE (10:44)
[2022-06-22] MEDS: diphenhydrAMINE 50 MG/ML SDV IVPUSH ONE (10:46)
[2022-06-22] MEDS: Ketorolac 30 MG/ML SDV IVPUSH ONE (10:46)
[2022-06-22] MEDS: Prochlorperazine 10 MG/2 ML SDV IVPUSH ONE (10:47)
[2022-06-22] MEDS: Dexamethasone 4 MG/ML SDV IVPUSH ONE (10:48)
[2022-06-22 12:50] LABS: BASOPHILS PERCENT AUTO 0.6 % (0.3-3.8); EOSINOPHILS ABSOLUTE AUTO 0.1 x10-3/uL (0.0-0.6); EOSINOPHILS PERCENT AUTO 1.4 % (0.1-6.8); HEMATOCRIT 41.4 % (38.3-50.1); HEMOGLOBIN 14.5 g/dL (12.9-17.7); LYMPHOCYTES ABSOLUTE AUTO 0.9 x10-3/uL (0.5-4.5); LYMPHOCYTES PERCENT AUTO 11.3 % (15.8-45.3); MEAN CORPUSCULAR HEMOGLOBIN 28.3 pg (27.0-33.3); MEAN CORPUSCULAR HGB CONC 34.9 g/dL (28.7-35.3); MEAN PLATELET VOLUME 8.1 fL (6.7-11.0); MONOCYTES ABSOLUTE AUTO 0.3 x10-3/uL (0.0-1.2); MONOCYTES PERCENT AUTO 3.1 % (5.5-15.2); NEUTROPHILS ABSOLUTE AUTO 6.7 x10-3/uL (1.7-6.9); NEUTROPHILS PERCENT AUTO 83.6 % (40.3-71.8); PLATELET COUNT,PLT 173 x10(3)uL (117-477); RED BLOOD CELL COUNT 5.12 x10(6)uL (3.90-5.90); RED CELL DISTRIBUTION WIDTH 15.5 % (12.4-15.0); WHITE BLOOD CELL COUNT,WBC 8.1 x10-3/uL (3.2-10.1)
[2022-06-22 13:02] LABS: BLOOD UREA NITROGEN,BUN 17 mg/dL (7-18); BUN/CREATININE RATIO 12.1 (9-20); CALCIUM 8.4 mg/dL (8.6-10.2); CARBON DIOXIDE,CO2 28 mmol/L (21-32); CHLORIDE,CL 106 mmol/L (100-110); CREATININE 1.4 mg/dL (0.70-1.30); EST CRCL DRUG DOSING (CG) 70.83 mL/min; ESTIMATED GFR 62 mL/min (>60); GLUCOSE RANDOM 140 mg/dL (80-116); POTASSIUM,K 3.8 mmol/L (3.5-5.3); SODIUM,NA 141 mmol/L (135-145)
[2022-06-22 13:08] LABS: A/G RATIO 1.1; ALANINE AMINOTRANSFERASE,ALT 36 U/L (12-36); ALBUMIN 3.5 g/dL (3.5-5.2); ALKALINE PHOSPHATASE 102 IU/L (56-112); ASPARTATE AMNIOTRANSFERASE,AST 25 IU/L (5-25); BILIRUBIN TOTAL 0.7 mg/dL (0.1-1.3); MAGNESIUM 1.8 mg/dL (1.8-2.5); PROTEIN TOTAL,TP 6.8 g/dL (6.0-8.0)
[2022-06-22 13:35] LABS: SEDIMENTATION RATE MANUAL 5 mm/hr (0-15)
== END 2022-06-22 14:15 | disposition home or self-care (01) ==
LOC: FB.ED 09:48
DX: G43.009 Migraine without aura, not intractable, without status migrainosus (principal); I10 Essential (primary) hypertension; K21.9 Gastro-esophageal reflux disease without esophagitis; E66.9 Obesity, unspecified; Z68.35 Body mass index [BMI] 35.0-35.9, adult; Z79.899 Other long term (current) drug therapy; Z86.16 Personal history of COVID-19
CPT/HCPCS: 36415; 70450; 80053; 83735; 85025; 85651; 86140; 96361; 96374; 96375; 99284; J0780; J1100; J1200; J1885; J7030

== ENCOUNTER 2022-07-14 15:45 | Emergency (ER) | payer BC, MEDICAID ==
[2022-07-14 16:01] VITALS: BP 145/95; PULSE 80
== END 2022-07-14 16:30 | disposition home or self-care (01) ==
LOC: FB.ED 15:45
DX: S63.501A Unspecified sprain of right wrist, initial encounter (principal); I10 Essential (primary) hypertension; K21.9 Gastro-esophageal reflux disease without esophagitis; E66.9 Obesity, unspecified; Z68.35 Body mass index [BMI] 35.0-35.9, adult; Z86.16 Personal history of COVID-19; Z79.899 Other long term (current) drug therapy
CPT/HCPCS: 99283

== ENCOUNTER 2023-02-23 16:22 | Emergency (ER) | payer BC, MEDICAID ==
[2023-02-23] MEDS ORDERED: Acetaminophen/oxyCODONE 325-5 MG Tab PO ONE (16:23)
[2023-02-23] MEDS ORDERED: Sodium Chloride 0.9% 10 ML Syringe FLUSH PRN (16:53)
[2023-02-23] MEDS ORDERED: Naloxone 0.4 MG/ML SDV IVPUSH PRN (16:55)
[2023-02-23] MEDS ORDERED: Sodium Chloride 0.9% 1,000 ML IV SCH (17:00)
[2023-02-23 17:13] LABS: BASOPHILS ABSOLUTE AUTO 0.1 x10-3/uL (0.0-0.3); BASOPHILS PERCENT AUTO 1.1 % (0.3-3.8); EOSINOPHILS ABSOLUTE AUTO 0.1 x10-3/uL (0.0-0.6); EOSINOPHILS PERCENT AUTO 1.5 % (0.1-6.8); HEMOGLOBIN 15.5 g/dL (12.9-17.7); LYMPHOCYTES ABSOLUTE AUTO 1.8 x10-3/uL (0.5-4.5); LYMPHOCYTES PERCENT AUTO 19.7 % (15.8-45.3); MEAN CORPUSCULAR HEMOGLOBIN 28.8 pg (27.0-33.3); MEAN CORPUSCULAR HGB CONC 35.2 g/dL (28.7-35.3); MEAN CORPUSCULAR VOLUME 81.8 fL (80.8-98.7); MONOCYTES ABSOLUTE AUTO 0.7 x10-3/uL (0.0-1.2); MONOCYTES PERCENT AUTO 7.6 % (5.5-15.2); NEUTROPHILS ABSOLUTE AUTO 6.5 x10-3/uL (1.7-6.9); NEUTROPHILS PERCENT AUTO 70.1 % (40.3-71.8); PLATELET COUNT,PLT 181 x10(3)uL (117-477); RED BLOOD CELL COUNT 5.38 x10(6)uL (3.90-5.90); RED CELL DISTRIBUTION WIDTH 14.9 % (12.4-15.0); WHITE BLOOD CELL COUNT,WBC 9.2 x10-3/uL (3.2-10.1)
[2023-02-23 17:15] LABS: BLOOD UREA NITROGEN,BUN 17 mg/dL (7-18); BUN/CREATININE RATIO 12.1 (9-20); CALCIUM 8.7 mg/dL (8.6-10.2); CARBON DIOXIDE,CO2 31 mmol/L (21-32); CHLORIDE,CL 104 mmol/L (100-110); CREATININE 1.4 mg/dL (0.70-1.30); ESTIMATED GFR 62 mL/min (>60); GLUCOSE RANDOM 96 mg/dL (80-116); POTASSIUM,K 3.7 mmol/L (3.5-5.3); SODIUM,NA 140 mmol/L (135-145)
[2023-02-23] MEDS: Ondansetron 4 MG/2 ML SDV IVPUSH ONE ×2 (17:29→18:25)
[2023-02-23] MEDS: Ketorolac 30 MG/ML SDV IVPUSH ONE ×2 (17:29→18:25)
[2023-02-23] MEDS: HYDROmorphone 2 MG/ML SDV IVPUSH STA ×2 (17:30→18:26)
[2023-02-23 18:10] LABS: BILIRUBIN,URINE NEGATIVE (NEGATIVE); GLUCOSE,URINE NORMAL (NORMAL); KETONES,URINE NEGATIVE (NEGATIVE); LEUKOCYTE ESTERASE,URINE NEGATIVE (NEGATIVE); NITRITE,URINE NEGATIVE (NEGATIVE); OCCULT BLOOD,URINE NEGATIVE (NEGATIVE); PROTEIN,URINE NEGATIVE (NEGATIVE); UROBILINOGEN,URINE NORMAL (NEGATIVE)
[2023-02-23 18:11] LABS: APPEARANCE,URINE CLEAR (CLEAR); BACTERIA,URINE FEW (NS); COLOR,URINE YELLOW (YELLOW); RBC,URINE 0-5 (0-5); SQUAMOUS EPITHELIAL CELLS,UR FEW (NS,R,O); WBC,URINE 0-5 (0-5)
[2023-02-23] MEDS ORDERED: Ciprofloxacin 500 MG Tab PO ONE (19:08)
[2023-02-23] MEDS ORDERED: metroNIDAZOLE 500 MG Tab PO ONE (19:08)
[2023-02-23 19:49] VITALS: BP 163/107
[2023-02-23 20:42] VITALS: PULSE 80
== END 2023-02-23 19:30 | disposition home or self-care (01) ==
LOC: FB.ED 16:22
DX: K52.9 Noninfective gastroenteritis and colitis, unspecified (principal); N20.0 Calculus of kidney; K21.9 Gastro-esophageal reflux disease without esophagitis; I10 Essential (primary) hypertension; E66.9 Obesity, unspecified; Z68.34 Body mass index [BMI] 34.0-34.9, adult; Z79.899 Other long term (current) drug therapy; Z90.49 Acquired absence of other specified parts of digestive tract; Z86.16 Personal history of COVID-19
CPT/HCPCS: 36415; 74176; 80048; 81001; 85025; 96361; 96374; 96375; 99284; 99284-25; A9270-GY; J1170; J1885; J2405; J7030

== ENCOUNTER 2023-03-06 20:22 | Emergency (ER) | payer MEDICAID ==
[2023-03-06] MEDS ORDERED: Ondansetron 4 MG Tab.DIS PO ONE (20:23)
[2023-03-06] MEDS ORDERED: Acetaminophen/HYDROcodone 325-5 MG Tab PO ONE (20:23)
[2023-03-06] MEDS ORDERED: Sodium Chloride 0.9% 10 ML Syringe FLUSH PRN (20:59)
[2023-03-06 21:15] LABS: BASOPHILS ABSOLUTE AUTO 0.1 x10-3/uL (0.0-0.3); BASOPHILS PERCENT AUTO 1.2 % (0.3-3.8); EOSINOPHILS ABSOLUTE AUTO 0.2 x10-3/uL (0.0-0.6); HEMATOCRIT 44.5 % (38.3-50.1); HEMOGLOBIN 15.7 g/dL (12.9-17.7); LYMPHOCYTES ABSOLUTE AUTO 2.1 x10-3/uL (0.5-4.5); LYMPHOCYTES PERCENT AUTO 22.3 % (15.8-45.3); MEAN CORPUSCULAR HEMOGLOBIN 28.9 pg (27.0-33.3); MEAN CORPUSCULAR HGB CONC 35.3 g/dL (28.7-35.3); MEAN CORPUSCULAR VOLUME 81.9 fL (80.8-98.7); MEAN PLATELET VOLUME 7.8 fL (6.7-11.0); MONOCYTES ABSOLUTE AUTO 0.5 x10-3/uL (0.0-1.2); MONOCYTES PERCENT AUTO 5.3 % (5.5-15.2); NEUTROPHILS ABSOLUTE AUTO 6.4 x10-3/uL (1.7-6.9); NEUTROPHILS PERCENT AUTO 69.2 % (40.3-71.8); PLATELET COUNT,PLT 211 x10(3)uL (117-477); RED BLOOD CELL COUNT 5.44 x10(6)uL (3.90-5.90); RED CELL DISTRIBUTION WIDTH 15.1 % (12.4-15.0); WHITE BLOOD CELL COUNT,WBC 9.3 x10-3/uL (3.2-10.1)
[2023-03-06 21:18] LABS: BLOOD UREA NITROGEN,BUN 16 mg/dL (7-18); BUN/CREATININE RATIO 10.7 (9-20); CALCIUM 8.4 mg/dL (8.6-10.2); CARBON DIOXIDE,CO2 24 mmol/L (21-32); CHLORIDE,CL 104 mmol/L (100-110); CREATININE 1.5 mg/dL (0.70-1.30); ESTIMATED GFR 57 mL/min (>60); GLUCOSE RANDOM 148 mg/dL (80-116); POTASSIUM,K 3.9 mmol/L (3.5-5.3); SODIUM,NA 137 mmol/L (135-145)
[2023-03-06 21:21] LABS: C-REACTIVE PROTEIN 0.55 mg/dL (<0.50)
[2023-03-06] MEDS ORDERED: Sodium Chloride 0.9% 1,000 ML IV ONE (21:21)
[2023-03-06] MEDS ORDERED: Ondansetron 4 MG/2 ML SDV IVPUSH ONE (21:21)
[2023-03-06] MEDS ORDERED: HYDROmorphone 2 MG/ML SDV IVPUSH ONE (21:21)
[2023-03-06] MEDS ORDERED: Naloxone 0.4 MG/ML SDV IVPUSH PRN (21:21)
[2023-03-06 21:24] LABS: ALANINE AMINOTRANSFERASE,ALT 39 U/L (12-36); ALBUMIN 3.5 g/dL (3.5-5.2); ALKALINE PHOSPHATASE 96 IU/L (56-112); ASPARTATE AMNIOTRANSFERASE,AST 16 IU/L (5-25); BILIRUBIN TOTAL 0.4 mg/dL (0.1-1.3); MAGNESIUM 1.9 mg/dL (1.8-2.5); PROTEIN TOTAL,TP 6.9 g/dL (6.0-8.0)
[2023-03-06 21:56] LABS: APPEARANCE,URINE CLEAR (CLEAR); BACTERIA,URINE FEW (NS); BILIRUBIN,URINE NEGATIVE (NEGATIVE); COLOR,URINE YELLOW (YELLOW); GLUCOSE,URINE NORMAL (NORMAL); KETONES,URINE NEGATIVE (NEGATIVE); LEUKOCYTE ESTERASE,URINE NEGATIVE (NEGATIVE); MUCUS,URINE FEW (NS); NITRITE,URINE NEGATIVE (NEGATIVE); OCCULT BLOOD,URINE NEGATIVE (NEGATIVE); PROTEIN,URINE NEGATIVE (NEGATIVE); RBC,URINE 0-5 (0-5); SQUAMOUS EPITHELIAL CELLS,UR RARE (NS,R,O); UROBILINOGEN,URINE NORMAL (NEGATIVE); WBC,URINE 0-5 (0-5)
[2023-03-06] MEDS ORDERED: Metoclopramide 10 MG/2 ML SDV IVPUSH ONE (22:17)
[2023-03-06 22:42] VITALS: BP 157/103; PULSE 72
[2023-03-06] MEDS ORDERED: Dicyclomine 10 MG Cap PO ONE (22:44)
== END 2023-03-06 23:02 | disposition home or self-care (01) ==
LOC: FB.ED 20:22
DX: A08.4 Viral intestinal infection, unspecified (principal); E86.0 Dehydration; I10 Essential (primary) hypertension; K21.9 Gastro-esophageal reflux disease without esophagitis; E66.9 Obesity, unspecified; Z86.16 Personal history of COVID-19; Z79.899 Other long term (current) drug therapy
CPT/HCPCS: 36415; 74176; 80053; 81001; 83605; 83690; 83735; 85025; 86140; 96361; 96374; 96375; 99284; 99284-25; A9270-GY; J1170; J2405; J2765; J7030; Q0162

== ENCOUNTER 2023-04-02 18:11 | Emergency (ER) | payer MEDICAID ==
[2023-04-02] MEDS: cefTRIAXone 1 GM Vial IM ONE (18:49)
[2023-04-02 19:10] VITALS: BP 150/94; PULSE 77
== END 2023-04-02 19:00 | disposition home or self-care (01) ==
LOC: FB.ED 18:11
DX: L03.032 Cellulitis of left toe (principal); L03.031 Cellulitis of right toe; I10 Essential (primary) hypertension; K21.9 Gastro-esophageal reflux disease without esophagitis; E66.9 Obesity, unspecified; Z79.899 Other long term (current) drug therapy; Z86.16 Personal history of COVID-19; Z86.19 Personal history of other infectious and parasitic diseases; Z90.49 Acquired absence of other specified parts of digestive tract; Z68.35 Body mass index [BMI] 35.0-35.9, adult
CPT/HCPCS: 96372; 99283; J0696

== ENCOUNTER 2023-05-19 16:42 | Emergency (ER) | payer BC, MEDICAID ==
[2023-05-19] MEDS ORDERED: Sodium Chloride 0.9% 10 ML Syringe FLUSH PRN (17:08)
[2023-05-19] MEDS: Cyclobenzaprine 10 MG Tab PO ONE (17:50)
[2023-05-19] MEDS: Acetaminophen/oxyCODONE 325-5 MG Tab PO STA (17:50)
[2023-05-19] MEDS: Ketorolac 30 MG/ML SDV IM ONE (17:52)
[2023-05-19 19:20] VITALS: BP 149/91; PULSE 98
== END 2023-05-19 19:10 | disposition home or self-care (01) ==
LOC: FB.ED 16:42
DX: S29.012A Strain of muscle and tendon of back wall of thorax, initial encounter (principal); M51.34 Other intervertebral disc degeneration, thoracic region; I10 Essential (primary) hypertension; K21.9 Gastro-esophageal reflux disease without esophagitis; Z86.16 Personal history of COVID-19; Z90.49 Acquired absence of other specified parts of digestive tract; Z79.51 Long term (current) use of inhaled steroids; Z79.899 Other long term (current) drug therapy; X58.XXXA Exposure to other specified factors, initial encounter
CPT/HCPCS: 71045; 72072; 96372; 99283; 99284; A9270-GY; J1885

== ENCOUNTER 2023-05-25 07:02 | Day surgery (SDC) | payer BC, MEDICAID ==
[~2023-05-25 07:02] MED LIST: Sodium Chloride 0.9% 10 ML Syringe FLUSH PRN
[2023-05-25] MEDS ORDERED: Propofol 200 MG/20 ML SDV IV ONE (07:03)
[2023-05-25] MEDS ORDERED: Ketamine 500 mg/10 ML MDV IV ONE (07:03)
[2023-05-25] MEDS ORDERED: Midazolam 1 MG/ML 2 ML SDV IV ONE (07:03)
[2023-05-25 08:07] VITALS: BP 124/90; PULSE 64
[2023-05-25] MEDS: Lactated Ringers 1,000 ML IV SCH (08:13)
[2023-05-25] MEDS: Simethicone Drops 40 MG/0.6 ML 30 ML Bottle PO ONE (08:31)
== END 2023-05-25 09:48 | disposition home or self-care (01) ==
LOC: FB.SDS 07:02
PROVIDERS: ATTEND Surgery
DX: K52.9 Noninfective gastroenteritis and colitis, unspecified (principal); K64.4 Residual hemorrhoidal skin tags; I10 Essential (primary) hypertension; K21.9 Gastro-esophageal reflux disease without esophagitis; Z87.891 Personal history of nicotine dependence; Z79.899 Other long term (current) drug therapy
CPT/HCPCS: 00811; 45380; 88305; A9270; J2250; J2704; J3490; J7120

== ENCOUNTER 2023-08-09 02:22 | Emergency (ER) | payer MEDICAID ==
[2023-08-09] MEDS ORDERED: Ondansetron 4 MG Tab.DIS PO ONE (02:23)
[2023-08-09] MEDS ORDERED: Naloxone 0.4 MG/ML SDV IVPUSH PRN (03:12)
[2023-08-09] MEDS: Sodium Chloride 0.9% 1,000 ML IV SCH (03:21)
[2023-08-09] MEDS: Morphine 4 MG/ML VIAL IVPUSH ONE ×2 (03:23→05:06)
[2023-08-09] MEDS: Ondansetron 4 MG/2 ML SDV IVPUSH ONE (03:26)
[2023-08-09 03:32] LABS: BASOPHILS ABSOLUTE AUTO 0.1 x10-3/uL (0.0-0.3); BASOPHILS PERCENT AUTO 0.5 % (0.3-3.8); EOSINOPHILS ABSOLUTE AUTO 0.2 x10-3/uL (0.0-0.6); EOSINOPHILS PERCENT AUTO 1.6 % (0.1-6.8); HEMATOCRIT 40.2 % (38.3-50.1); LYMPHOCYTES ABSOLUTE AUTO 1.2 x10-3/uL (0.5-4.5); LYMPHOCYTES PERCENT AUTO 12.4 % (15.8-45.3); MEAN CORPUSCULAR VOLUME 85.7 fL (80.8-98.7); MEAN PLATELET VOLUME 8.5 fL (6.7-11.0); MONOCYTES ABSOLUTE AUTO 0.6 x10-3/uL (0.0-1.2); MONOCYTES PERCENT AUTO 6.2 % (5.5-15.2); NEUTROPHILS ABSOLUTE AUTO 7.4 x10-3/uL (1.7-6.9); NEUTROPHILS PERCENT AUTO 79.3 % (40.3-71.8); PLATELET COUNT,PLT 158 x10(3)uL (117-477); RED BLOOD CELL COUNT 4.68 x10(6)uL (3.90-5.90); RED CELL DISTRIBUTION WIDTH 15.6 % (12.4-15.0); WHITE BLOOD CELL COUNT,WBC 9.3 x10-3/uL (3.2-10.1)
[2023-08-09 03:33] LABS: BLOOD UREA NITROGEN,BUN 18 mg/dL (7-18); BUN/CREATININE RATIO 11.3 (9-20); CALCIUM 8.4 mg/dL (8.6-10.2); CARBON DIOXIDE,CO2 27 mmol/L (21-32); CHLORIDE,CL 106 mmol/L (100-110); CREATININE 1.6 mg/dL (0.70-1.30); ESTIMATED GFR 52 mL/min (>60); GLUCOSE RANDOM 135 mg/dL (80-116); POTASSIUM,K 3.5 mmol/L (3.5-5.3); SODIUM,NA 143 mmol/L (135-145)
[2023-08-09 03:37] LABS: BILIRUBIN,URINE NEGATIVE (NEGATIVE); GLUCOSE,URINE NORMAL (NORMAL); KETONES,URINE NEGATIVE (NEGATIVE); LEUKOCYTE ESTERASE,URINE NEGATIVE (NEGATIVE); NITRITE,URINE NEGATIVE (NEGATIVE); OCCULT BLOOD,URINE NEGATIVE (NEGATIVE); PROTEIN,URINE NEGATIVE (NEGATIVE); UROBILINOGEN,URINE NORMAL (NEGATIVE)
[2023-08-09 03:38] LABS: APPEARANCE,URINE CLEAR (CLEAR); COLOR,URINE YELLOW (YELLOW)
[2023-08-09 03:39] LABS: ALANINE AMINOTRANSFERASE,ALT 32 U/L (12-36); ALBUMIN 3.5 g/dL (3.5-5.2); ALKALINE PHOSPHATASE 104 IU/L (56-112); AMYLASE 78 U/L (25-115); ASPARTATE AMNIOTRANSFERASE,AST 16 IU/L (5-25); BILIRUBIN TOTAL 1.2 mg/dL (0.1-1.3); PROTEIN TOTAL,TP 6.9 g/dL (6.0-8.0)
[2023-08-09] MEDS: Iopamidol 755 Mg/ML 100 ML Bottle IV SCH (04:32)
[2023-08-09] MEDS: Sodium Chloride 0.9% 10 ML Syringe FLUSH PRN (05:06)
[2023-08-09] MEDS: Prochlorperazine 10 MG in Sodium Chloride 0.9% 50 ML IV ONE (05:22)
[2023-08-09 05:27] VITALS: PULSE 75
[2023-08-09] MEDS: Ketorolac 30 MG/ML SDV IVPUSH ONE (06:03)
[2023-08-09 06:14] VITALS: BP 144/104
== END 2023-08-09 06:13 | disposition home or self-care (01) ==
LOC: FB.ED 02:22
DX: K52.9 Noninfective gastroenteritis and colitis, unspecified (principal); I10 Essential (primary) hypertension; E66.9 Obesity, unspecified; Z86.16 Personal history of COVID-19; Z79.899 Other long term (current) drug therapy; Z68.34 Body mass index [BMI] 34.0-34.9, adult
CPT/HCPCS: 36415; 74177; 80053; 81003; 82150; 83690; 85025; 96361; 96365; 96375; 96376; 99284; J0780; J1885; J2270; J2405; J3490; J7030; Q0162; Q9967

== ENCOUNTER 2023-09-03 12:12 | Emergency (ER) | payer MEDICAID ==
[2023-09-03] MEDS ORDERED: Acetaminophen/HYDROcodone 325-5 MG Tab PO ONE (12:13)
[2023-09-03] MEDS: Acetaminophen/HYDROcodone 325-7.5 MG Tab PO ONE (14:00)
[2023-09-03] MEDS: predniSONE 20 MG Tab PO ONE (16:33)
[2023-09-03 19:53] VITALS: BP 132/88; PULSE 66
== END 2023-09-03 16:35 | disposition home or self-care (01) ==
LOC: FB.ED 12:12
DX: M79.672 Pain in left foot (principal); M70.872 Other soft tissue disorders related to use, overuse and pressure, left ankle and foot; I10 Essential (primary) hypertension; K21.9 Gastro-esophageal reflux disease without esophagitis; E66.9 Obesity, unspecified; Z86.16 Personal history of COVID-19; Z90.49 Acquired absence of other specified parts of digestive tract; Z79.899 Other long term (current) drug therapy
CPT/HCPCS: 73630; 99283; A9270; J7512

== ENCOUNTER 2023-11-06 18:30 | Emergency (ER) | payer BC, MEDICAID ==
[2023-11-06 18:57] VITALS: BP 148/89; PULSE 68
[2023-11-06] MEDS: Ketorolac 30 MG/ML SDV IM ONE (19:27)
[2023-11-06] MEDS: Cyclobenzaprine 10 MG Tab PO ONE (19:28)
[2023-11-06] MEDS: Acetaminophen/oxyCODONE 325-5 MG Tab PO STA (19:28)
== END 2023-11-06 20:02 | disposition home or self-care (01) ==
LOC: FB.ED 18:30
DX: M51.36 Other intervertebral disc degeneration, lumbar region (principal); I10 Essential (primary) hypertension; E66.9 Obesity, unspecified; Z86.16 Personal history of COVID-19; Z90.49 Acquired absence of other specified parts of digestive tract; Z79.899 Other long term (current) drug therapy
CPT/HCPCS: 96372; 99283; A9270; J1885

== ENCOUNTER 2023-11-26 20:58 | Emergency (ER) | payer BC, MEDICAID ==
[2023-11-26 21:08] VITALS: BP 177/104; PULSE 76
[2023-11-26 21:29] LABS: BILIRUBIN,URINE NEGATIVE (NEGATIVE); GLUCOSE,URINE NORMAL (NORMAL); KETONES,URINE NEGATIVE (NEGATIVE); LEUKOCYTE ESTERASE,URINE NEGATIVE (NEGATIVE); NITRITE,URINE NEGATIVE (NEGATIVE); OCCULT BLOOD,URINE NEGATIVE (NEGATIVE); PROTEIN,URINE NEGATIVE (NEGATIVE); UROBILINOGEN,URINE NORMAL (NEGATIVE)
[2023-11-26 21:33] LABS: BASOPHILS ABSOLUTE AUTO 0.1 x10-3/uL (0.0-0.3); BASOPHILS PERCENT AUTO 1.4 % (0.3-3.8); EOSINOPHILS ABSOLUTE AUTO 0.2 x10-3/uL (0.0-0.6); EOSINOPHILS PERCENT AUTO 1.9 % (0.1-6.8); HEMATOCRIT 41.9 % (38.3-50.1); HEMOGLOBIN 14.6 g/dL (12.9-17.7); LYMPHOCYTES ABSOLUTE AUTO 1.9 x10-3/uL (0.5-4.5); MEAN CORPUSCULAR HEMOGLOBIN 30.3 pg (27.0-33.3); MEAN CORPUSCULAR HGB CONC 34.9 g/dL (28.7-35.3); MEAN CORPUSCULAR VOLUME 86.9 fL (80.8-98.7); MEAN PLATELET VOLUME 8.1 fL (6.7-11.0); MONOCYTES ABSOLUTE AUTO 0.6 x10-3/uL (0.0-1.2); MONOCYTES PERCENT AUTO 6.6 % (5.5-15.2); NEUTROPHILS ABSOLUTE AUTO 6.3 x10-3/uL (1.7-6.9); NEUTROPHILS PERCENT AUTO 69.1 % (40.3-71.8); PLATELET COUNT,PLT 174 x10(3)uL (117-477); RED BLOOD CELL COUNT 4.82 x10(6)uL (3.90-5.90); RED CELL DISTRIBUTION WIDTH 14.8 % (12.4-15.0); WHITE BLOOD CELL COUNT,WBC 9.1 x10-3/uL (3.2-10.1)
[2023-11-26 21:37] LABS: BLOOD UREA NITROGEN,BUN 16 mg/dL (7-18); CALCIUM 8.6 mg/dL (8.6-10.2); CARBON DIOXIDE,CO2 31 mmol/L (21-32); CHLORIDE,CL 104 mmol/L (100-110); CREATININE 1.6 mg/dL (0.70-1.30); EST CRCL DRUG DOSING (CG) 60.63 mL/min; ESTIMATED GFR 52 mL/min (>60); GLUCOSE RANDOM 108 mg/dL (80-116); POTASSIUM,K 3.6 mmol/L (3.5-5.3); SODIUM,NA 141 mmol/L (135-145)
[2023-11-26 21:39] LABS: APPEARANCE,URINE CLEAR (CLEAR); COLOR,URINE YELLOW (YELLOW)
[2023-11-26] MEDS: hydrOXYzine HCl 50 MG/ML SDV IM ONE (21:57)
[2023-11-26] MEDS: HYDROmorphone 2 MG/ML SDV IM ONE (21:58)
== END 2023-11-26 22:04 | disposition home or self-care (01) ==
LOC: FB.ED 20:58
DX: R10.9 Unspecified abdominal pain (principal); I10 Essential (primary) hypertension; K21.9 Gastro-esophageal reflux disease without esophagitis; E66.9 Obesity, unspecified; Z86.16 Personal history of COVID-19; Z79.899 Other long term (current) drug therapy; Z85.528 Personal history of other malignant neoplasm of kidney
CPT/HCPCS: 36415; 80048; 81003; 85025; 96372; 99283; 99284; J1171; J3410

== ENCOUNTER 2024-03-12 04:16 | Emergency (ER) | payer BC, MEDICAID ==
[2024-03-12] MEDS: Sodium Chloride 0.9% 10 ML Syringe FLUSH PRN (05:00)
[2024-03-12] MEDS: Sodium Chloride 0.9% 1,000 ML IV ONE (05:03)
[2024-03-12] MEDS: Ondansetron 4 MG/2 ML SDV IVPUSH ONE ×2 (05:06→06:27)
[2024-03-12] MEDS: HYDROmorphone 2 MG/ML SDV IVPUSH ONE (05:07)
[2024-03-12 05:10] LABS: BASOPHILS ABSOLUTE AUTO 0.1 x10-3/uL (0.0-0.3); BASOPHILS PERCENT AUTO 0.9 % (0.3-3.8); EOSINOPHILS ABSOLUTE AUTO 0.1 x10-3/uL (0.0-0.6); EOSINOPHILS PERCENT AUTO 1.2 % (0.1-6.8); HEMOGLOBIN 15.3 g/dL (12.9-17.7); LYMPHOCYTES ABSOLUTE AUTO 1.3 x10-3/uL (0.5-4.5); LYMPHOCYTES PERCENT AUTO 15.8 % (15.8-45.3); MEAN CORPUSCULAR HEMOGLOBIN 29.8 pg (27.0-33.3); MEAN CORPUSCULAR HGB CONC 35.7 g/dL (28.7-35.3); MEAN CORPUSCULAR VOLUME 83.6 fL (80.8-98.7); MEAN PLATELET VOLUME 8.5 fL (6.7-11.0); MONOCYTES ABSOLUTE AUTO 0.6 x10-3/uL (0.0-1.2); MONOCYTES PERCENT AUTO 6.9 % (5.5-15.2); NEUTROPHILS ABSOLUTE AUTO 6.4 x10-3/uL (1.7-6.9); NEUTROPHILS PERCENT AUTO 75.2 % (40.3-71.8); PLATELET COUNT,PLT 162 x10(3)uL (117-477); RED BLOOD CELL COUNT 5.14 x10(6)uL (3.90-5.90); RED CELL DISTRIBUTION WIDTH 14.4 % (12.4-15.0); WHITE BLOOD CELL COUNT,WBC 8.5 x10-3/uL (3.2-10.1)
[2024-03-12 05:11] LABS: BLOOD UREA NITROGEN,BUN 14 mg/dL (7-18); BUN/CREATININE RATIO 9.3 (9-20); CALCIUM 8.5 mg/dL (8.6-10.2); CARBON DIOXIDE,CO2 26 mmol/L (21-32); CHLORIDE,CL 105 mmol/L (100-110); CREATININE 1.5 mg/dL (0.70-1.30); EST CRCL DRUG DOSING (CG) 64.67 mL/min; ESTIMATED GFR 56 mL/min (>60); GLUCOSE RANDOM 148 mg/dL (80-116); POTASSIUM,K 3.2 mmol/L (3.5-5.3); SODIUM,NA 142 mmol/L (135-145)
[2024-03-12 05:13] LABS: C-REACTIVE PROTEIN 0.88 mg/dL (<0.50)
[2024-03-12 05:16] LABS: ALANINE AMINOTRANSFERASE,ALT 24 U/L (12-36); ALBUMIN 3.5 g/dL (3.5-5.2); ALKALINE PHOSPHATASE 115 IU/L (56-112); ASPARTATE AMNIOTRANSFERASE,AST 13 IU/L (5-25); BILIRUBIN TOTAL 0.6 mg/dL (0.1-1.3); PROTEIN TOTAL,TP 6.9 g/dL (6.0-8.0)
[2024-03-12] MEDS: Iopamidol 755 Mg/ML 100 ML Bottle IV SCH (05:51)
[2024-03-12 05:54] LABS: INR 0.91 (1.00-1.24); PROTHROMBIN TIME 9.6 sec (9.0-11.1); PTT,PARTIAL THROMBOPLSTIN TIME 26.5 SECONDS (24.4-33.2)
[2024-03-12] MEDS: Lactated Ringers 1,000 ML IV ONE (06:27)
[2024-03-12 06:50] VITALS: BP 151/99; PULSE 73
[2024-03-12] MEDS: HYDROmorphone 2 MG/ML SDV IVPUSH PRN (07:24)
== END 2024-03-12 08:29 | disposition home or self-care (01) ==
LOC: FB.ED 04:16
DX: R10.30 Lower abdominal pain, unspecified (principal); I10 Essential (primary) hypertension; K21.9 Gastro-esophageal reflux disease without esophagitis; E66.9 Obesity, unspecified; Z68.33 Body mass index [BMI] 33.0-33.9, adult; Z87.891 Personal history of nicotine dependence; Z86.16 Personal history of COVID-19; Z90.49 Acquired absence of other specified parts of digestive tract
CPT/HCPCS: 36415; 74177; 80053; 83605; 83690; 85025; 85610; 85730; 86140; 96361; 96374; 96375; 96376; 99284-25; J1171; J2405; J7030; J7120; Q9967

== ENCOUNTER 2024-08-06 14:31 | Emergency (ER) | payer BC ==
[2024-08-06 15:04] LABS: APPEARANCE,URINE CLEAR (CLEAR); BILIRUBIN,URINE SMALL (NEGATIVE); COLOR,URINE YELLOW (YELLOW); GLUCOSE,URINE NORMAL (NORMAL); KETONES,URINE NEGATIVE (NEGATIVE); LEUKOCYTE ESTERASE,URINE NEGATIVE (NEGATIVE); NITRITE,URINE NEGATIVE (NEGATIVE); OCCULT BLOOD,URINE NEGATIVE (NEGATIVE); PROTEIN,URINE TRACE mg/dL (NEGATIVE); UROBILINOGEN,URINE 1 mg/dL (NEGATIVE)
[2024-08-06 15:10] LABS: BACTERIA,URINE FEW (NS); FINE GRANULAR CASTS,URINE OCCASIONAL (NS); MUCUS,URINE MODERATE (NS); RBC,URINE 0-5 (0-5); SQUAMOUS EPITHELIAL CELLS,UR RARE (NS,R,O); WBC,URINE 0-5 (0-5)
[2024-08-06] MEDS ORDERED: Naloxone 0.4 MG/ML SDV IVPUSH PRN (15:20)
[2024-08-06] MEDS ORDERED: Sodium Chloride 0.9% 10 ML Syringe FLUSH PRN (15:20)
[2024-08-06] MEDS: Ondansetron 4 MG/2 ML SDV IVPUSH ONE (15:30)
[2024-08-06] MEDS: Sodium Chloride 0.9% 1,000 ML IV ONE (15:30)
[2024-08-06] MEDS: HYDROmorphone 2 MG/ML SDV IVPUSH ONE (15:31)
[2024-08-06 15:34] LABS: BASOPHILS ABSOLUTE AUTO 0.1 x10-3/uL (0.0-0.3); EOSINOPHILS ABSOLUTE AUTO 0.1 x10-3/uL (0.0-0.6); EOSINOPHILS PERCENT AUTO 0.9 % (0.1-6.8); HEMATOCRIT 40.4 % (38.3-50.1); HEMOGLOBIN 14.6 g/dL (12.9-17.7); LYMPHOCYTES ABSOLUTE AUTO 1.7 x10-3/uL (0.5-4.5); LYMPHOCYTES PERCENT AUTO 17.1 % (15.8-45.3); MEAN CORPUSCULAR HGB CONC 36.1 g/dL (28.7-35.3); MEAN CORPUSCULAR VOLUME 80.3 fL (80.8-98.7); MEAN PLATELET VOLUME 8.4 fL (6.7-11.0); MONOCYTES ABSOLUTE AUTO 0.6 x10-3/uL (0.0-1.2); NEUTROPHILS ABSOLUTE AUTO 7.4 x10-3/uL (1.7-6.9); PLATELET COUNT,PLT 182 x10(3)uL (117-477); RED BLOOD CELL COUNT 5.03 x10(6)uL (3.90-5.90); RED CELL DISTRIBUTION WIDTH 14.8 % (12.4-15.0); WHITE BLOOD CELL COUNT,WBC 9.9 x10-3/uL (3.2-10.1)
[2024-08-06 15:38] LABS: BLOOD UREA NITROGEN,BUN 10 mg/dL (7-18); BUN/CREATININE RATIO 5.3 (9-20); CALCIUM 8.6 mg/dL (8.6-10.2); CARBON DIOXIDE,CO2 26 mmol/L (21-32); CHLORIDE,CL 106 mmol/L (100-110); CREATININE 1.9 mg/dL (0.70-1.30); EST CRCL DRUG DOSING (CG) 51.05 mL/min; ESTIMATED GFR 42 mL/min (>60); GLUCOSE RANDOM 132 mg/dL (80-116); POTASSIUM,K 3.1 mmol/L (3.5-5.3); SODIUM,NA 141 mmol/L (135-145)
[2024-08-06 17:24] VITALS: BP 132/105; PULSE 81
== END 2024-08-06 17:25 | disposition home or self-care (01) ==
LOC: FB.ED 14:31
DX: N20.0 Calculus of kidney (principal); I12.9 Hypertensive chronic kidney disease with stage 1 through stage 4 chronic kidney disease, or unspecified chronic kidney disease; N18.32 Chronic kidney disease, stage 3b; Z79.899 Other long term (current) drug therapy; Z86.16 Personal history of COVID-19
CPT/HCPCS: 36415; 74176; 80048; 81001; 85025; 86140; 96361; 96374; 96375; 99284; J1171; J2405; J7030

== ENCOUNTER 2024-11-25 16:58 | Emergency (ER) | payer BC ==
[2024-11-25] MEDS ORDERED: Ondansetron 4 MG Tab.DIS PO ONE (16:59)
[2024-11-25] MEDS ORDERED: Naloxone 0.4 MG/ML SDV IVPUSH PRN (17:16)
[2024-11-25] MEDS ORDERED: Sodium Chloride 0.9% 10 ML Syringe FLUSH PRN (17:16)
[2024-11-25 17:28] LABS: BASOPHILS ABSOLUTE AUTO 0.1 x10-3/uL (0.0-0.3); BASOPHILS PERCENT AUTO 0.7 % (0.3-3.8); EOSINOPHILS ABSOLUTE AUTO 0.2 x10-3/uL (0.0-0.6); EOSINOPHILS PERCENT AUTO 2.7 % (0.1-6.8); LYMPHOCYTES ABSOLUTE AUTO 1.7 x10-3/uL (0.5-4.5); LYMPHOCYTES PERCENT AUTO 18.2 % (15.8-45.3); MEAN PLATELET VOLUME 8.1 fL (6.7-11.0); MONOCYTES ABSOLUTE AUTO 0.6 x10-3/uL (0.0-1.2); MONOCYTES PERCENT AUTO 6.8 % (5.5-15.2); NEUTROPHILS ABSOLUTE AUTO 6.6 x10-3/uL (1.7-6.9); NEUTROPHILS PERCENT AUTO 71.6 % (40.3-71.8); PLATELET COUNT,PLT 190 x10(3)uL (117-477); RED BLOOD CELL COUNT 5.01 x10(6)uL (3.90-5.90); RED CELL DISTRIBUTION WIDTH 14.5 % (12.4-15.0); WHITE BLOOD CELL COUNT,WBC 9.2 x10-3/uL (3.2-10.1)
[2024-11-25 17:31] LABS: BLOOD UREA NITROGEN,BUN 11 mg/dL (7-18); CARBON DIOXIDE,CO2 31 mmol/L (21-32); CHLORIDE,CL 105 mmol/L (100-110); CREATININE 1.3 mg/dL (0.70-1.30); EST CRCL DRUG DOSING (CG) 73.79 mL/min; ESTIMATED GFR 67 mL/min (>60); GLUCOSE RANDOM 91 mg/dL (80-116); POTASSIUM,K 2.9 mmol/L (3.5-5.3); SODIUM,NA 142 mmol/L (135-145)
[2024-11-25 17:37] LABS: A/G RATIO 1.0; ALANINE AMINOTRANSFERASE,ALT 20 U/L (12-36); ASPARTATE AMNIOTRANSFERASE,AST 17 IU/L (5-25); BILIRUBIN TOTAL 0.5 mg/dL (0.1-1.3); PROTEIN TOTAL,TP 7.2 g/dL (6.0-8.0)
[2024-11-25] MEDS: Ondansetron 4 MG/2 ML SDV IVPUSH ONE (17:44)
[2024-11-25] MEDS: Ketorolac 30 MG/ML SDV IVPUSH ONE (17:44)
[2024-11-25 17:58] LABS: LACTIC ACID 1.3 mmol/L (0.4-2.0)
[2024-11-25] MEDS: Iopamidol 755 Mg/ML 100 ML Bottle IV SCH (18:06)
[2024-11-25] MEDS: HYDROmorphone 2 MG/ML SDV IVPUSH STA (19:02)
[2024-11-25] MEDS: Potassium Chloride 20 MEQ Tab.ER PO ONE (20:45)
[2024-11-25 21:06] VITALS: BP 156/109; PULSE 72
== END 2024-11-25 21:24 | disposition home or self-care (01) ==
LOC: FB.ED 16:58
DX: K52.9 Noninfective gastroenteritis and colitis, unspecified (principal); K21.9 Gastro-esophageal reflux disease without esophagitis; I12.9 Hypertensive chronic kidney disease with stage 1 through stage 4 chronic kidney disease, or unspecified chronic kidney disease; N18.9 Chronic kidney disease, unspecified; Z87.891 Personal history of nicotine dependence; Z79.899 Other long term (current) drug therapy
CPT/HCPCS: 36415; 74177; 80053; 83605; 83690; 85025; 96361; 96365; 96375; 99284; A9270; J1171; J1885; J2270; J2405; J3480; J7030; Q0162; Q9967

== ENCOUNTER 2024-12-24 08:29 | Emergency (ER) | payer BC ==
[2024-12-24] MEDS ORDERED: Sodium Chloride 0.9% 10 ML Syringe FLUSH PRN (08:58)
[2024-12-24] MEDS ORDERED: Naloxone 0.4 MG/ML SDV IVPUSH PRN (09:03)
[2024-12-24 09:09] LABS: BASOPHILS ABSOLUTE AUTO 0.1 x10-3/uL (0.0-0.3); BASOPHILS PERCENT AUTO 0.9 % (0.3-3.8); EOSINOPHILS ABSOLUTE AUTO 0.2 x10-3/uL (0.0-0.6); EOSINOPHILS PERCENT AUTO 2.1 % (0.1-6.8); LYMPHOCYTES ABSOLUTE AUTO 1.1 x10-3/uL (0.5-4.5); LYMPHOCYTES PERCENT AUTO 12.8 % (15.8-45.3); MEAN PLATELET VOLUME 8.4 fL (6.7-11.0); MONOCYTES ABSOLUTE AUTO 0.5 x10-3/uL (0.0-1.2); MONOCYTES PERCENT AUTO 5.5 % (5.5-15.2); NEUTROPHILS ABSOLUTE AUTO 6.7 x10-3/uL (1.7-6.9); NEUTROPHILS PERCENT AUTO 78.7 % (40.3-71.8); PLATELET COUNT,PLT 177 x10(3)uL (117-477); RED BLOOD CELL COUNT 5.38 x10(6)uL (3.90-5.90); RED CELL DISTRIBUTION WIDTH 14.2 % (12.4-15.0); WHITE BLOOD CELL COUNT,WBC 8.5 x10-3/uL (3.2-10.1)
[2024-12-24] MEDS: fentaNYL 100 MCG/2 ML SDV IVPUSH ONE (09:09)
[2024-12-24] MEDS: Ondansetron 4 MG/2 ML SDV IVPUSH ONE (09:09)
[2024-12-24 09:12] LABS: BLOOD UREA NITROGEN,BUN 9 mg/dL (7-18); CARBON DIOXIDE,CO2 30 mmol/L (21-32); CHLORIDE,CL 105 mmol/L (100-110); CREATININE 1.4 mg/dL (0.70-1.30); EST CRCL DRUG DOSING (CG) 68.52 mL/min; ESTIMATED GFR 61 mL/min (>60); GLUCOSE RANDOM 109 mg/dL (80-116); POTASSIUM,K 3.4 mmol/L (3.5-5.3); SODIUM,NA 143 mmol/L (135-145)
[2024-12-24 09:17] LABS: GLUCOSE,URINE NORMAL (NORMAL); OCCULT BLOOD,URINE NEGATIVE (NEGATIVE)
[2024-12-24 09:18] LABS: A/G RATIO 1.0; ALANINE AMINOTRANSFERASE,ALT 26 U/L (12-36); ASPARTATE AMNIOTRANSFERASE,AST 16 IU/L (5-25); BILIRUBIN TOTAL 0.6 mg/dL (0.1-1.3); PROTEIN TOTAL,TP 7.6 g/dL (6.0-8.0)
[2024-12-24 09:19] LABS: APPEARANCE,URINE CLEAR (CLEAR)
[2024-12-24] MEDS: HYDROmorphone 2 MG/ML SDV IVPUSH ONE (09:34)
[2024-12-24 11:46] VITALS: BP 138/88; PULSE 61
[2024-12-24] MEDS: Potassium Chloride 20 MEQ Tab.ER PO ONE (12:48)
== END 2024-12-24 13:04 | disposition home or self-care (01) ==
LOC: FB.ED 08:29
DX: R10.31 Right lower quadrant pain (principal); E86.0 Dehydration; E87.6 Hypokalemia; R11.2 Nausea with vomiting, unspecified; I12.9 Hypertensive chronic kidney disease with stage 1 through stage 4 chronic kidney disease, or unspecified chronic kidney disease; N18.9 Chronic kidney disease, unspecified; K21.9 Gastro-esophageal reflux disease without esophagitis; E66.9 Obesity, unspecified; Z90.49 Acquired absence of other specified parts of digestive tract; Z79.899 Other long term (current) drug therapy
CPT/HCPCS: 36415; 74019; 74176; 80053; 81003; 83605; 83690; 83735; 85025; 86140; 96361; 96374; 96375; 99284; A9270; J1171; J1630; J2405; J3010; J7030